=== PATIENT | female | born 1955 | race Two or more races ===

== ENCOUNTER → 2017-05-21 | Outpatient (CLI) | payer MEDICARE, OTHER, MEDICAID ==
[~2017-05-21] MED LIST: ENAL2.5T PO; NIAC500T71 PO
[2017-05-21 09:14] LABS: Basophils # (auto) 0 uL; Basophils % (auto) 0.4 % (0.0-2.0); CONDITION Y; Eosinophils # (auto) 0.4 uL; Eosinophils % (auto) 8.8 % (0.0-7.0); Hematocrit 37.5 % (36.0-46.0); Hemoglobin 12.6 g/dL (12.2-16.2); Lymphocytes % (auto) 40.4 % (10.0-50.0); Mean Corpuscular Hemoglobin 29.8 pg (28.0-32.0); Mean Corpuscular Hgb Conc. 33.7 g/dL (32.0-36.0); Mean Corpuscular Volume 88.5 fL (80.0-100.0); Mean Platelet Volume 9.1 fL (7.4-10.4); Monocytes # (auto) 0.5 uL; Monocytes % (auto) 10.4 % (0.0-12.0); Platelet Count (auto) 279 10^3/uL (140-450); Red Cell Distribution Width 13.7 % (11.6-16.0); White Blood Cell 5.1 10^3/uL (4.4-10.8)
[2017-05-21 09:27] LABS: Urine Bilirubin Negative (Negative); Urine Blood Negative /uL (Negative); Urine Color Yellow (Yellow); Urine Glucose Normal (Normal); Urine Ketone Negative (Negative); Urine Nitrite Negative (Negative); Urine RBC <1 /hpf (0 - 4); Urine Squamous Epithelial Cell FEW /hpf (<5); Urine Urobilinogen Normal (Negative); Urine pH 5.5 (5.0-8.0)
[2017-05-21 10:08] LABS: BUN/Creatinine Ratio 34.8; Bilirubin, Total 0.6 mg/dL (0.2-1.0); Potassium 3.9 mmol/L (3.5-5.1); Total Protein 7.4 g/dL (6.4-8.2)
== END | disposition home or self-care (01) ==
LOC: LAB 07:01
PROVIDERS: ATTEND Internal Medicine
DX: Z00.00 Encounter for general adult medical examination without abnormal findings (principal); I10 Essential (primary) hypertension; E78.2 Mixed hyperlipidemia; E55.9 Vitamin D deficiency, unspecified
CPT/HCPCS: 36415; 80053; 80061; 81001; 82306; 85025

== ENCOUNTER 2017-08-25 08:08 | Day surgery (SDC) | payer MEDICARE, OTHER, MEDICAID ==
[2017-08-21 11:07] LABS: Basophils # (auto) 0 uL; Basophils % (auto) 0.6 % (0.0-2.0); Eosinophils # (auto) 0.3 uL; Eosinophils % (auto) 5.6 % (0.0-7.0); Hematocrit 37.1 % (36.0-46.0); Hemoglobin 12.6 g/dL (12.2-16.2); Lymphocytes # (auto) 2.3 uL; Lymphocytes % (auto) 36.6 % (10.0-50.0); Mean Corpuscular Hemoglobin 30.5 pg (28.0-32.0); Mean Corpuscular Volume 89.7 fL (80.0-100.0); Mean Platelet Volume 7.4 fL (6.9-10.8); Monocytes # (auto) 0.6 uL; Monocytes % (auto) 10.4 % (0.0-12.0); Neutrophils # (auto) 2.9 uL; Neutrophils % (auto) 46.8 % (37.0-80.0); Nucleated Red Blood Cells % 0.1 %; Platelet Count (auto) 264 10^3/uL (140-450); Red Cell Distribution Width 14.3 % (11.8-14.3); White Blood Cell 6.2 10^3/uL (4.4-10.8)
[2017-08-21 11:23] LABS: INR 0.97 (0.9-1.15); Partial Thromboplastin Time 26.7 sec (22.64-33.71); Prothrombin Time 10.6 sec (9.37-12.3)
[~2017-08-25] VITALS: Ht 154.9 cm; Wt 58.1 kg
[~2017-08-25 08:08] MED LIST changes: +MAGN400C2 PO; -NIAC500T71 PO; +OMEP20CA74 OR; +SODIUM CHLORIDE LOCK 10 ML ONE; +diphenhdrAMINE HCL 50 MG/1 ML VL ONE
[2017-08-25] MEDS ORDERED: LIDOCAINE VISCOUS 2% 15ML UD ONE (09:27)
[2017-08-25] MEDS: fentaNYL CITRATE 100 MCG/2 ML VL ONE ×2 (09:29→09:37)
[2017-08-25] MEDS: MIDAZOLAM HCL 5 MG/ML-1ML VIAL ONE ×2 (09:29→09:37)
[2017-08-25 10:17] VITALS: BP 112/74
== END 2017-08-25 10:45 | disposition home or self-care (01) ==
LOC: GI 08:08
PROVIDERS: ATTEND Internal Medicine Gastroenterology
DX: K29.50 Unspecified chronic gastritis without bleeding (principal); K29.80 Duodenitis without bleeding; K59.00 Constipation, unspecified; Z90.49 Acquired absence of other specified parts of digestive tract; J40 Bronchitis, not specified as acute or chronic
CPT/HCPCS: 36415; 43239; 45378; 85025; 85610; 85730; 88305; J1200; J2250; J3010; J7030

== ENCOUNTER → 2018-01-19 | Outpatient (CLI) | payer MEDICARE, OTHER, MEDICAID ==
[~2018-01-19] MED LIST changes: -SODIUM CHLORIDE LOCK 10 ML ONE; -diphenhdrAMINE HCL 50 MG/1 ML VL ONE
[2018-01-19 07:47] LABS: Basophils # (auto) 0 uL; Basophils % (auto) 0.6 % (0.0-2.0); Eosinophils # (auto) 0.3 uL; Eosinophils % (auto) 6.3 % (0.0-7.0); Hematocrit 37.8 % (36.0-46.0); Hemoglobin 12.5 g/dL (12.2-16.2); Lymphocytes # (auto) 1.9 uL; Lymphocytes % (auto) 44.1 % (10.0-50.0); Mean Corpuscular Volume 90.9 fL (80.0-100.0); Monocytes # (auto) 0.4 uL; Monocytes % (auto) 10.6 % (0.0-12.0); Neutrophils # (auto) 1.6 uL; Neutrophils % (auto) 38.4 % (37.0-80.0); Nucleated Red Blood Cells % 0.1 %; Platelet Count (auto) 246 10^3/uL (140-450); Red Blood Cells 4.15 10^6/uL (4.0-5.20); Red Cell Distribution Width 13.9 % (11.8-14.3); White Blood Cell 4.2 10^3/uL (4.4-10.8)
[2018-01-19 08:05] LABS: Urine Bacteria FEW /hpf (None Seen); Urine Blood Negative /uL (Negative); Urine Specific Gravity 1.006 (1.001-1.035); Urine WBC 2 /hpf (0 - 5)
[2018-01-19 08:49] LABS: Albumin 3.8 g/dL (3.4-5.0); BUN/Creatinine Ratio 17.6; Bilirubin, Total 0.6 mg/dL (0.2-1.0); CRP High Sensitivity 0.04 mg/dL (< 0.3); Calcium 9.1 mg/dL (8.5-10.1); Potassium 4.2 mmol/L (3.5-5.1); Total Protein 7.8 g/dL (6.4-8.2)
== END | disposition home or self-care (01) ==
LOC: LAB 07:24
PROVIDERS: ATTEND Physician Assistant
DX: I10 Essential (primary) hypertension (principal); N39.0 Urinary tract infection, site not specified; D64.9 Anemia, unspecified; M06.9 Rheumatoid arthritis, unspecified; E78.2 Mixed hyperlipidemia
CPT/HCPCS: 36415; 80053; 80061; 81001; 85025; 85652; 86141

== ENCOUNTER → 2018-08-06 | Outpatient (CLI) | payer MEDICARE, OTHER, MEDICAID ==
[~2018-08-06] MED LIST changes: +CEPH500C PO; +NAPR375T27 PO; +SULF-92 PO
[2018-08-06 10:43] LABS: Cholesterol 144 mg/dL (< 200); HDL Cholesterol 25 mg/dL (40-59); LDL Cholesterol 97 mg/dL (< 100); Triglycerides 209 mg/dL (< 150)
== END | disposition home or self-care (01) ==
LOC: LAB 08:50
PROVIDERS: ATTEND Internal Medicine
DX: I10 Essential (primary) hypertension (principal); E11.9 Type 2 diabetes mellitus without complications
CPT/HCPCS: 36415; 80061; 83036

== ENCOUNTER → 2018-09-07 | Outpatient (CLI) | payer MEDICARE, OTHER, MEDICAID ==
[~2018-09-07] VITALS: Ht 154.9 cm; Wt 58.1 kg
[~2018-09-07] MED LIST changes: +ADENOSINE 49 MG in GIVE UN-DILUTED 0 ML IV STA
[2018-09-07 09:59] VITALS: BP 116/71
== END | disposition home or self-care (01) ==
LOC: XY 08:15
PROVIDERS: ATTEND Internal Medicine
DX: R07.89 Other chest pain (principal)
CPT/HCPCS: 78452; 93017; A9500; J0153

== ENCOUNTER → 2018-09-08 | Outpatient (CLI) | payer MEDICARE, OTHER, MEDICAID ==
[~2018-09-08] MED LIST changes: -ADENOSINE 49 MG in GIVE UN-DILUTED 0 ML IV STA
[2018-09-08 10:35] LABS: Bilirubin, Direct 0.2 mg/dL (0-0.2); Bilirubin, Total 0.7 mg/dL (0.2-1.0); Total Protein 8.4 g/dL (6.4-8.2)
== END | disposition home or self-care (01) ==
LOC: LAB 09:00
PROVIDERS: ATTEND Internal Medicine
DX: E78.5 Hyperlipidemia, unspecified (principal); I10 Essential (primary) hypertension; K21.9 Gastro-esophageal reflux disease without esophagitis
CPT/HCPCS: 36415; 80076

== ENCOUNTER → 2018-09-14 | Outpatient (CLI) | payer MEDICARE, OTHER, MEDICAID ==
[2018-09-14 08:11] LABS: Basophils # (auto) 0 uL; Basophils % (auto) 0.7 % (0.0-2.0); Eosinophils # (auto) 0.2 uL; Eosinophils % (auto) 5.1 % (0.0-7.0); Hematocrit 37.4 % (36.0-46.0); Hemoglobin 12.3 g/dL (12.2-16.2); Lymphocytes # (auto) 1.9 uL; Lymphocytes % (auto) 44.6 % (10.0-50.0); Mean Corpuscular Hemoglobin 29.6 pg (28.0-32.0); Mean Corpuscular Hgb Conc. 32.9 g/dL (32.0-36.0); Mean Corpuscular Volume 89.9 fL (80.0-100.0); Monocytes # (auto) 0.5 uL; Monocytes % (auto) 11.6 % (0.0-12.0); Neutrophils # (auto) 1.6 uL; Nucleated Red Blood Cells % 0.2 %; Platelet Count (auto) 236 10^3/uL (140-450); Red Blood Cells 4.16 10^6/uL (4.0-5.20); Red Cell Distribution Width 14.1 % (11.8-14.3); White Blood Cell 4.3 10^3/uL (4.4-10.8)
[2018-09-14 09:24] LABS: Cholesterol 140 mg/dL (< 200); HDL Cholesterol 23 mg/dL (40-59); LDL Cholesterol 92 mg/dL (< 100); Triglycerides 256 mg/dL (< 150)
== END | disposition home or self-care (01) ==
LOC: LAB 07:24
PROVIDERS: ATTEND Internal Medicine
DX: E78.5 Hyperlipidemia, unspecified (principal)
CPT/HCPCS: 36415; 80061; 85025

== ENCOUNTER → 2018-11-16 | Day surgery (SDC) | payer MEDICARE, OTHER, MEDICAID ==
[2018-11-12 10:55] LABS: Basophils # (auto) 0 uL; Basophils % (auto) 0.7 % (0.0-2.0); Eosinophils # (auto) 0.2 uL; Hematocrit 41.4 % (36.0-46.0); Hemoglobin 13.5 g/dL (12.2-16.2); Lymphocytes # (auto) 1.9 uL; Lymphocytes % (auto) 37.9 % (10.0-50.0); Mean Corpuscular Hemoglobin 29.5 pg (28.0-32.0); Mean Corpuscular Hgb Conc. 32.6 g/dL (32.0-36.0); Mean Corpuscular Volume 90.4 fL (80.0-100.0); Monocytes # (auto) 0.6 uL; Monocytes % (auto) 11.9 % (0.0-12.0); Neutrophils # (auto) 2.2 uL; Neutrophils % (auto) 45.5 % (37.0-80.0); Platelet Count (auto) 249 10^3/uL (140-450); Red Blood Cells 4.58 10^6/uL (4.0-5.20); Red Cell Distribution Width 14.3 % (11.8-14.3); White Blood Cell 4.9 10^3/uL (4.4-10.8)
[2018-11-12 12:00] LABS: INR 0.95 (0.9-1.15); Prothrombin Time 10.2 sec (9.27-12.13)
[~2018-11-16] VITALS: Ht 154.9 cm; Wt 56.7 kg
[~2018-11-16] MED LIST changes: -CEPH500C PO; +LIDOCAINE VISCOUS 2% 15ML UD ONE; -MAGN400C2 PO; +MIDAZOLAM HCL 5 MG/ML-1ML VIAL ONE; -NAPR375T27 PO; -OMEP20CA74 OR; +PANT40TA2 PO; +SODIUM CHLORIDE LOCK 10 ML ONE; -SULF-92 PO; +diphenhdrAMINE HCL 50 MG/1 ML VL ONE; +fentaNYL CITRATE 100 MCG/2 ML VL ONE
[2018-11-16 10:44] VITALS: BP 117/74
== END | disposition home or self-care (01) ==
LOC: GI 08:21
PROVIDERS: ATTEND Internal Medicine Gastroenterology
DX: K29.70 Gastritis, unspecified, without bleeding (principal); Z91.040 Latex allergy status; Z90.49 Acquired absence of other specified parts of digestive tract; Z82.49 Family history of ischemic heart disease and other diseases of the circulatory system
CPT/HCPCS: 36415; 43239; 85025; 85610; 85730; 88305; 88342; A6257; J1200; J2250; J3010; J7030

== ENCOUNTER → 2018-11-17 | Outpatient (CLI) | payer MEDICARE, OTHER, MEDICAID ==
[~2018-11-17] MED LIST changes: -LIDOCAINE VISCOUS 2% 15ML UD ONE; -MIDAZOLAM HCL 5 MG/ML-1ML VIAL ONE; -SODIUM CHLORIDE LOCK 10 ML ONE; -diphenhdrAMINE HCL 50 MG/1 ML VL ONE; -fentaNYL CITRATE 100 MCG/2 ML VL ONE
[2018-11-17 10:15] LABS: Cholesterol 164 mg/dL (< 200); HDL Cholesterol 31 mg/dL (40-59); LDL Cholesterol 111 mg/dL (< 100); Triglycerides 196 mg/dL (< 150)
== END | disposition home or self-care (01) ==
LOC: LAB 09:00
PROVIDERS: ATTEND Internal Medicine
DX: Z12.11 Encounter for screening for malignant neoplasm of colon (principal); E78.9 Disorder of lipoprotein metabolism, unspecified
CPT/HCPCS: 36415; 80061

== ENCOUNTER → 2018-11-23 | Outpatient (CLI) | payer MEDICARE, OTHER, MEDICAID | END | disposition home or self-care (01) | LOC: LAB 11:47 | PROVIDERS: ATTEND Internal Medicine | DX: Z12.11 Encounter for screening for malignant neoplasm of colon (principal); E78.9 Disorder of lipoprotein metabolism, unspecified | CPT/HCPCS: 82270 ==

== ENCOUNTER → 2019-02-05 | Outpatient (CLI) | payer MEDICARE, OTHER, MEDICAID ==
[~2019-02-05] MED LIST changes: +ASPI81CH43 GT; +CLOP75TA28 PO; +DICY20TA66 PO; +MECL-87 PO; +OME20T PO; -PANT40TA2 PO
[2019-02-05 09:09] LABS: Cholesterol 162 mg/dL (< 200); HDL Cholesterol 28 mg/dL (40-59); LDL Cholesterol 107 mg/dL (< 100); Triglycerides 143 mg/dL (< 150)
== END | disposition home or self-care (01) ==
LOC: LAB 07:37
PROVIDERS: ATTEND Internal Medicine
DX: I10 Essential (primary) hypertension (principal); K21.9 Gastro-esophageal reflux disease without esophagitis; M32.9 Systemic lupus erythematosus, unspecified; E78.5 Hyperlipidemia, unspecified; Z79.899 Other long term (current) drug therapy
CPT/HCPCS: 36415; 80061; 82306; 83036

== ENCOUNTER 2019-02-07 22:04 | Inpatient (IN) | payer MEDICARE, OTHER, MEDICAID ==
[~2019-02-07] VITALS: Ht 152.4 cm; Wt 55.0 kg
[~2019-02-07 22:04] MED LIST changes: -ASPI81CH43 GT; -CLOP75TA28 PO
[2019-02-07 22:38] LABS: Basophils # (auto) 0 uL; Basophils % (auto) 0.8 % (0.0-2.0); Eosinophils # (auto) 0.2 uL; Hemoglobin 12.6 g/dL (12.2-16.2); Lymphocytes # (auto) 1.6 uL; Lymphocytes % (auto) 38.5 % (10.0-50.0); Mean Corpuscular Hemoglobin 29.9 pg (28.0-32.0); Mean Corpuscular Hgb Conc. 33.2 g/dL (32.0-36.0); Mean Corpuscular Volume 90.2 fL (80.0-100.0); Monocytes # (auto) 0.5 uL; Monocytes % (auto) 11.8 % (0.0-12.0); Neutrophils # (auto) 1.9 uL; Neutrophils % (auto) 43.9 % (37.0-80.0); Nucleated Red Blood Cells % 0.1 %; Platelet Count (auto) 252 10^3/uL (140-450); Red Blood Cells 4.21 10^6/uL (4.0-5.20); Red Cell Distribution Width 13.8 % (11.8-14.3); White Blood Cell 4.2 10^3/uL (4.4-10.8)
[2019-02-07 22:53] LABS: INR 0.94 (0.9-1.15); Partial Thromboplastin Time 28.5 sec (23.78-33.04); Prothrombin Time 10.1 sec (9.27-12.13)
[2019-02-07 22:57] LABS: Alanine Aminotransferase 21 U/L (13-56); Albumin 3.8 g/dL (3.4-5.0); Anion Gap 8 (5-15); Aspartate Aminotransferase 18 U/L (15-37); BUN/Creatinine Ratio 22.1; Blood Urea Nitrogen 15 mg/dL (7-18); Calcium 8.7 mg/dL (8.5-10.1); Carbon Dioxide 23 mmol/L (21-32); Chloride 110 mmol/L (98-107); GFR African American 113 mL/min; GFR Non-African American 93 mL/min; Glucose 101 mg/dL (74-106); Magnesium 2.3 mg/dL (1.6-2.6); Potassium 3.9 mmol/L (3.5-5.1); Sodium 141 mmol/L (136-145)
[2019-02-07 23:02] LABS: Alkaline Phosphatase 138 U/L (45-117); Bilirubin, Total 0.2 mg/dL (0.2-1.0); Total Protein 8.1 g/dL (6.4-8.2)
[2019-02-08] MEDS ORDERED: ASPirin 81 mg TAB PO ONE (05:30)
[2019-02-08] MEDS ORDERED: NITROGLYCERIN 0.2MG/HR TOPICAL PATCH TD ONE (05:30)
[2019-02-08 06:31] LABS: Basophils # (auto) 0 uL; Basophils % (auto) 0.8 % (0.0-2.0); Eosinophils # (auto) 0.2 uL; Eosinophils % (auto) 5.6 % (0.0-7.0); Hemoglobin 12.3 g/dL (12.2-16.2); Lymphocytes # (auto) 1.5 uL; Lymphocytes % (auto) 36.1 % (10.0-50.0); Mean Corpuscular Hemoglobin 30.3 pg (28.0-32.0); Mean Corpuscular Hgb Conc. 33.3 g/dL (32.0-36.0); Mean Corpuscular Volume 91.1 fL (80.0-100.0); Monocytes # (auto) 0.6 uL; Monocytes % (auto) 15.7 % (0.0-12.0); Neutrophils # (auto) 1.7 uL; Neutrophils % (auto) 41.8 % (37.0-80.0); Platelet Count (auto) 242 10^3/uL (140-450); Red Blood Cells 4.06 10^6/uL (4.0-5.20); Red Cell Distribution Width 13.8 % (11.8-14.3)
[2019-02-08 06:49] LABS: INR 0.96 (0.9-1.15); Partial Thromboplastin Time 27.9 sec (23.78-33.04); Prothrombin Time 10.3 sec (9.27-12.13)
[2019-02-08 07:00] LABS: Albumin 3.9 g/dL (3.4-5.0); Calcium 8.8 mg/dL (8.5-10.1); Magnesium 2.3 mg/dL (1.6-2.6); Potassium 3.8 mmol/L (3.5-5.1)
[2019-02-08 07:05] LABS: Bilirubin, Total 0.3 mg/dL (0.2-1.0); Total Protein 7.8 g/dL (6.4-8.2)
[2019-02-08] MEDS ORDERED: NITROGLYCERIN 0.4 MG SL TAB SL PRN (10:30)
[2019-02-08] MEDS ORDERED: MORPHINE SULF INJ 2 MG/ML SYRINGE 1ML IV PRN (10:30)
[2019-02-08] MEDS ORDERED: CLOPIDOGREL BISULFATE 75 MG TAB PO ONE ×2 (10:30→10:45)
[2019-02-08] MEDS ORDERED: ONDANSETRON HCL 4 MG/2 ML VIAL IV PRN (10:30)
[2019-02-08] MEDS ORDERED: hydrALAZINE HCL 20 MG/ML VL IV PRN (10:30)
[2019-02-08] MEDS ORDERED: HYDROcodone-ACET 5/325MG TAB PO PRN (10:30)
[2019-02-08] MEDS ORDERED: MORPHINE SULFATE 4 MG/ML SYR/VIAL IV PRN (10:30)
[2019-02-08] MEDS ORDERED: ACETAMINOPHEN 500 MG TAB PO PRN (10:30)
[2019-02-08] MEDS ORDERED: ENALAPRIL MALEATE 2.5 MG TAB PO ONE (10:45)
[2019-02-08] MEDS ORDERED: ASPirin-EC 81 mg tab PO ONE (10:45)
[2019-02-08] MEDS ORDERED: PANTOPRAZOLE 40 MG/10 ML VIAL IV ONE (10:45)
[2019-02-08] MEDS: ENALAPRIL MALEATE 10 MG TAB PO SCH ×2 (11:43→22:24)
--- NOTE | 2019-02-08 17:05 | NUR ---
Telemetry admit from ER KRISTIN CARSON admitted to Telemetry unit after SBAR received Candido. Patient oriented to Patricia Huffman, primary RN, unit, room, bed, and unit policies regarding patient care and visiting hours. Patient now on continuous telemetry monitoring, tele box #48 and telemetry reading on arrival to unit is SR 80. Patient on room air, o2 saturation 98%, no signs of SOB/Distress. Safety precautions in place including, bed set to lowest position/locked, bedside rails up x2, call light within reach. Instructed patient to call for assistance. Patient verbalized understanding. Will continue to monitor q 1hr and prn.
[2019-02-08] MEDS ORDERED: ASPI81CH43 GT (18:17)
[2019-02-08] MEDS ORDERED: CLOP75TA28 PO (18:17)
--- NOTE | 2019-02-08 19:39 | NUR ---
ENDORSED CARE TO TATY QUESADA.
[2019-02-08 20:00] VITALS: BP 129/63
[2019-02-08 21:30] VITALS: BP 129/63
[2019-02-08] MEDS ORDERED: ATORVASTATIN 20 MG TAB PO SCH (22:00)
[2019-02-08] MEDS: METOPROLOL TARTRATE 25 MG TAB PO SCH (22:23)
[2019-02-09 05:00] VITALS: BP 78/46
[2019-02-09 06:03] LABS: INR 0.98 (0.9-1.15); Partial Thromboplastin Time 27.8 sec (23.78-33.04); Prothrombin Time 10.5 sec (9.27-12.13)
[2019-02-09 06:04] LABS: Basophils # (auto) 0 uL; Basophils % (auto) 0.6 % (0.0-2.0); Eosinophils # (auto) 0.3 uL; Eosinophils % (auto) 4.9 % (0.0-7.0); Hematocrit 35.9 % (36.0-46.0); Hemoglobin 11.9 g/dL (12.2-16.2); Lymphocytes # (auto) 1.4 uL; Lymphocytes % (auto) 27.6 % (10.0-50.0); Mean Corpuscular Hemoglobin 30.1 pg (28.0-32.0); Mean Corpuscular Volume 91.2 fL (80.0-100.0); Monocytes # (auto) 0.7 uL; Neutrophils # (auto) 2.8 uL; Neutrophils % (auto) 52.9 % (37.0-80.0); Nucleated Red Blood Cells % 0.2 %; Platelet Count (auto) 228 10^3/uL (140-450); Red Blood Cells 3.94 10^6/uL (4.0-5.20); Red Cell Distribution Width 13.7 % (11.8-14.3); White Blood Cell 5.2 10^3/uL (4.4-10.8)
--- NOTE | 2019-02-09 07:20 | NUR ---
OPENING NOTE ASSUMED CARE OF PATIENT. PT IS SITTING ON BED, HOB HIGH-FOWLERS. A&O X4. ON ROOM AIR, O2 SATURATION 97%. NO SIGNS OF SOB/DISTRESS. TELE #9, HR 76. SAFETY PRECAUTIONS IN PLACE INCLUDING BED SET TO LOWEST POSITION/LOCKED. BEDSIDE RAILS UP X2. CALL LIGHT WITHIN REACH. INSTRUCTED PT TO CALL FOR ASSISTANCE. DISCUSSED POC WITH PT. WILL CONTINUE TO MONITOR Q 1HR AND PRN.
[2019-02-09 08:54] LABS: BUN/Creatinine Ratio 15.7; Calcium 8.7 mg/dL (8.5-10.1)
[2019-02-09 08:57] VITALS: BP 93/58
[2019-02-09] MEDS ORDERED: CLOPIDOGREL BISULFATE 75 MG TAB PO SCH (10:00)
[2019-02-09] MEDS ORDERED: PANTOPRAZOLE 40 MG/10 ML VIAL IV SCH ×2 (10:00)
[2019-02-09] MEDS: METOPROLOL TARTRATE 25 MG TAB PO SCH (10:00)
[2019-02-09] MEDS: ENALAPRIL MALEATE 10 MG TAB PO SCH (10:00)
[2019-02-09] MEDS ORDERED: ASPirin-EC 81 mg tab PO SCH (10:00)
[2019-02-09 12:46] VITALS: BP 86/57
[2019-02-09 14:24] VITALS: BP 93/58
--- NOTE | 2019-02-09 15:03 | NUR ---
Discharge instructions given as ordered. Encourage to follow up with Dr. Telles on 02/10/19 at 2:00 PM, [id number] [place] [address]. Ext [phone]. All questions and concerns addressed. Patient verbalized understanding. No home medications held in Pharmacy and no vaccines given. IV removed with catheter intact, pressure dressing applied. Telemetry unit #9 returned to ICU.
--- NOTE | 2019-02-09 15:16 | NUR ---
Patient taken to vehicle via wheelchair with all personal belongings, accompanied by staff and family member. No distress noted at time of departure.
== END 2019-02-09 15:16 | disposition home or self-care (01) | DRG 392 ==
LOC: ER 22:07 → TELE 02-08 10:26 → TELE-WESTW 02-08 17:05
PROVIDERS: ADMIT Nurse Practitioner Acute Care; ATTEND Internal Medicine Pulmonary Disease
DX: K21.9 Gastro-esophageal reflux disease without esophagitis (principal); I10 Essential (primary) hypertension; I25.119 Atherosclerotic heart disease of native coronary artery with unspecified angina pectoris; M32.9 Systemic lupus erythematosus, unspecified; E78.5 Hyperlipidemia, unspecified; I44.0 Atrioventricular block, first degree; Z82.49 Family history of ischemic heart disease and other diseases of the circulatory system; Z90.710 Acquired absence of both cervix and uterus; Z98.51 Tubal ligation status; Z95.5 Presence of coronary angioplasty implant and graft; Z91.040 Latex allergy status; Z90.49 Acquired absence of other specified parts of digestive tract
CPT/HCPCS: 36415; 71045; 80048; 80053; 83735; 83880; 84443; 84484; 85025; 85610; 85730; 86141; 93005; 93306; 94761; 96374; C9113; G0378

== ENCOUNTER → 2019-02-11 | Outpatient (CLI) | payer MEDICARE, OTHER, MEDICAID ==
[~2019-02-11] MED LIST changes: +ASPI81CH43 GT; +CLOP75TA28 PO; -ENAL2.5T PO
== END | disposition home or self-care (01) ==
LOC: XY 07:33
PROVIDERS: ATTEND Internal Medicine
DX: I73.9 Peripheral vascular disease, unspecified (principal)
CPT/HCPCS: 93926

== ENCOUNTER → 2019-02-22 | Outpatient (CLI) | payer MEDICARE, OTHER, MEDICAID ==
[2019-02-22 09:09] LABS: Basophils # (auto) 0 uL; Basophils % (auto) 0.7 % (0.0-2.0); Eosinophils # (auto) 0.2 uL; Eosinophils % (auto) 5.7 % (0.0-7.0); Hematocrit 37.4 % (36.0-46.0); Hemoglobin 12.4 g/dL (12.2-16.2); Lymphocytes # (auto) 1.3 uL; Lymphocytes % (auto) 35.1 % (10.0-50.0); Mean Corpuscular Volume 90.9 fL (80.0-100.0); Monocytes # (auto) 0.4 uL; Monocytes % (auto) 10.1 % (0.0-12.0); Neutrophils # (auto) 1.8 uL; Neutrophils % (auto) 48.4 % (37.0-80.0); Nucleated Red Blood Cells % 0.1 %; Platelet Count (auto) 255 10^3/uL (140-450); Red Blood Cells 4.11 10^6/uL (4.0-5.20); Red Cell Distribution Width 13.9 % (11.8-14.3); White Blood Cell 3.6 10^3/uL (4.4-10.8)
[2019-02-22 09:22] LABS: Urine Bacteria NONE SEEN /hpf (None Seen); Urine Blood Negative /uL (Negative); Urine WBC <1 /hpf (0 - 5)
[2019-02-22 10:20] LABS: Albumin 3.8 g/dL (3.4-5.0); BUN/Creatinine Ratio 23.9; CRP High Sensitivity 0.04 mg/dL (< 0.3); Calcium 9.2 mg/dL (8.5-10.1); Potassium 4.8 mmol/L (3.5-5.1)
[2019-02-22 10:24] LABS: Bilirubin, Total 0.4 mg/dL (0.2-1.0); Total Protein 7.7 g/dL (6.4-8.2)
== END | disposition home or self-care (01) ==
LOC: LAB 08:02
DX: M32.10 Systemic lupus erythematosus, organ or system involvement unspecified (principal); I10 Essential (primary) hypertension; I25.10 Atherosclerotic heart disease of native coronary artery without angina pectoris; Z95.818 Presence of other cardiac implants and grafts; Z79.899 Other long term (current) drug therapy
CPT/HCPCS: 36415; 80053; 81001; 85025; 85652; 86141; 87086

== ENCOUNTER → 2019-03-25 | Outpatient (CLI) | payer MEDICARE, OTHER, MEDICAID ==
[2019-03-25 11:07] LABS: Cholesterol 158 mg/dL (< 200); HDL Cholesterol 31 mg/dL (40-59); LDL Cholesterol 108 mg/dL (< 100); Triglycerides 183 mg/dL (< 150)
== END | disposition home or self-care (01) ==
LOC: LAB 09:35
PROVIDERS: ATTEND Internal Medicine
DX: E78.5 Hyperlipidemia, unspecified (principal); I10 Essential (primary) hypertension; Z79.899 Other long term (current) drug therapy
CPT/HCPCS: 36415; 80061; 83036

== ENCOUNTER → 2019-05-19 | Outpatient (CLI) | payer MEDICARE, OTHER, MEDICAID ==
[~2019-05-19] MED LIST changes: +IBUP400T21 PO; -MECL-87 PO
[2019-05-19 09:51] LABS: Basophils # (auto) 0 uL; Basophils % (auto) 0.8 % (0.0-2.0); Eosinophils # (auto) 0.4 uL; Eosinophils % (auto) 6.6 % (0.0-7.0); Hematocrit 37.2 % (36.0-46.0); Hemoglobin 12.3 g/dL (12.2-16.2); Lymphocytes # (auto) 1.8 uL; Lymphocytes % (auto) 32.4 % (10.0-50.0); Mean Corpuscular Hemoglobin 29.3 pg (28.0-32.0); Mean Corpuscular Volume 88.6 fL (80.0-100.0); Monocytes # (auto) 0.6 uL; Monocytes % (auto) 11.6 % (0.0-12.0); Neutrophils # (auto) 2.7 uL; Neutrophils % (auto) 48.6 % (37.0-80.0); Platelet Count (auto) 312 10^3/uL (140-450); Red Cell Distribution Width 14.4 % (11.8-14.3); White Blood Cell 5.5 10^3/uL (4.4-10.8)
== END | disposition home or self-care (01) ==
LOC: LAB 09:15
PROVIDERS: ATTEND Internal Medicine
DX: E11.9 Type 2 diabetes mellitus without complications (principal); I10 Essential (primary) hypertension
CPT/HCPCS: 36415; 83036; 85025

== ENCOUNTER → 2019-05-28 | Outpatient (CLI) | payer MEDICARE, OTHER | END | disposition home or self-care (01) | LOC: LAB 14:54 | PROVIDERS: ATTEND Internal Medicine | DX: E11.9 Type 2 diabetes mellitus without complications (principal) | CPT/HCPCS: 82043 ==

== ENCOUNTER → 2019-06-08 | Outpatient (CLI) | payer MEDICARE, OTHER ==
[2019-06-08 14:51] LABS: INR < 0.93 (0.9-1.15); Partial Thromboplastin Time 27.3 sec (23.64-32.05)
== END | disposition home or self-care (01) ==
LOC: LAB 13:33
PROVIDERS: ATTEND Internal Medicine
DX: Z01.818 Encounter for other preprocedural examination (principal); M32.9 Systemic lupus erythematosus, unspecified; I25.10 Atherosclerotic heart disease of native coronary artery without angina pectoris
CPT/HCPCS: 36415; 85610; 85730

== ENCOUNTER → 2019-08-17 | Outpatient (CLI) | payer MEDICARE, OTHER ==
[2019-08-17 11:36] LABS: Cholesterol 140 mg/dL (< 200); HDL Cholesterol 38 mg/dL (40-59); LDL Cholesterol 93 mg/dL (< 100); Triglycerides 156 mg/dL (< 150)
== END | disposition home or self-care (01) ==
LOC: LAB 10:15
PROVIDERS: ATTEND Internal Medicine
DX: E11.9 Type 2 diabetes mellitus without complications (principal); E55.9 Vitamin D deficiency, unspecified
CPT/HCPCS: 36415; 80061; 82306; 83036

== ENCOUNTER → 2019-10-19 | Outpatient (CLI) | payer MEDICARE, OTHER, MEDICAID ==
[2019-10-19 08:57] LABS: Bilirubin, Direct 0.2 mg/dL (0-0.2)
[2019-10-19 08:59] LABS: Bilirubin, Total 0.7 mg/dL (0.2-1.0); Total Protein 7.9 g/dL (6.4-8.2)
== END | disposition home or self-care (01) ==
LOC: LAB 07:13
PROVIDERS: ATTEND Internal Medicine
DX: E78.5 Hyperlipidemia, unspecified (principal); E11.9 Type 2 diabetes mellitus without complications; E55.9 Vitamin D deficiency, unspecified
CPT/HCPCS: 36415; 80061; 80076; 82306

== ENCOUNTER → 2019-12-29 | Outpatient (CLI) | payer MEDICARE, OTHER ==
[2019-12-29 08:32] LABS: Albumin 4.2 g/dL (3.4-5.0); Bilirubin, Direct 0.1 mg/dL (0-0.2)
[2019-12-29 08:35] LABS: Bilirubin, Total 0.4 mg/dL (0.2-1.0)
== END | disposition home or self-care (01) ==
LOC: LAB 07:52
PROVIDERS: ATTEND Internal Medicine
DX: E11.9 Type 2 diabetes mellitus without complications (principal); E55.9 Vitamin D deficiency, unspecified; E78.5 Hyperlipidemia, unspecified
CPT/HCPCS: 36415; 80076; 82306; 83036

== ENCOUNTER → 2020-04-25 | Outpatient (CLI) | payer MEDICARE, OTHER, MEDICAID ==
[2020-04-25 08:45] LABS: Basophils # (auto) 0 10 ^3/uL (0-0.2); Basophils % (auto) 0.5 % (0.0-2.0); Eosinophils # (auto) 0.1 10 ^3/uL (0-0.8); Eosinophils % (auto) 1.4 % (0.0-7.0); Hematocrit 36.9 % (36.0-46.0); Hemoglobin 12.2 g/dL (12.2-16.2); Lymphocytes # (auto) 1.4 10 ^3/uL (0.4-5.4); Lymphocytes % (auto) 23.5 % (10.0-50.0); Mean Corpuscular Hemoglobin 31.4 pg (28.0-32.0); Mean Corpuscular Hgb Conc. 33.1 g/dL (32.0-36.0); Monocytes # (auto) 0.5 10 ^3/uL (0-1.3); Monocytes % (auto) 8.3 % (0.0-12.0); Neutrophils # (auto) 3.8 10 ^3/uL (1.6-8.6); Neutrophils % (auto) 66.3 % (37.0-80.0); Platelet Count (auto) 305 10^3/uL (140-450); Red Blood Cells 3.88 10^6/uL (4.0-5.20); Red Cell Distribution Width 14.7 % (11.8-14.3); White Blood Cell 5.8 10^3/uL (4.4-10.8)
[2020-04-25 08:48] LABS: Urine Bacteria FEW /hpf (None Seen); Urine Blood Negative /uL (Negative); Urine WBC 1 /hpf (0 - 5)
[2020-04-25 09:30] LABS: Calcium 9.2 mg/dL (8.5-10.1); Potassium 4.2 mmol/L (3.5-5.1)
[2020-04-25 09:34] LABS: BUN/Creatinine Ratio 21.6; Bilirubin, Total 0.5 mg/dL (0.2-1.0)
[2020-04-25 09:41] LABS: CRP High Sensitivity 0.02 mg/dL (< 0.3)
== END | disposition home or self-care (01) ==
LOC: LAB 08:21
PROVIDERS: ATTEND Internal Medicine
DX: E11.9 Type 2 diabetes mellitus without complications (principal); R10.9 Unspecified abdominal pain; M06.9 Rheumatoid arthritis, unspecified; I10 Essential (primary) hypertension
CPT/HCPCS: 36415; 80053; 81001; 82150; 83690; 85025; 85652; 86141

== ENCOUNTER → 2020-05-18 | Outpatient (CLI) | payer MEDICARE, OTHER, MEDICAID ==
[2020-05-18 15:15] LABS: Urine Blood Negative /uL (Negative); Urine Specific Gravity 1.005 (1.001-1.035)
[2020-05-18 15:48] LABS: BUN/Creatinine Ratio 22.7; Calcium 8.9 mg/dL (8.5-10.1); Potassium 3.9 mmol/L (3.5-5.1)
[2020-05-20 19:24] LABS: Micro Albumin < 5.00 mg/L (0-30.0)
== END | disposition home or self-care (01) ==
LOC: LAB 14:40
PROVIDERS: ATTEND Internal Medicine
DX: Z12.11 Encounter for screening for malignant neoplasm of colon (principal); E11.9 Type 2 diabetes mellitus without complications; N13.30 Unspecified hydronephrosis
CPT/HCPCS: 36415; 80048; 81003; 82043

== ENCOUNTER → 2020-05-18 | Outpatient (CLI) | payer MEDICARE, OTHER, MEDICAID | END | disposition home or self-care (01) | LOC: XYW 09:27 | PROVIDERS: ATTEND Internal Medicine | DX: I08.2 Rheumatic disorders of both aortic and tricuspid valves (principal); R07.9 Chest pain, unspecified; R53.83 Other fatigue | CPT/HCPCS: 93306 ==

== ENCOUNTER → 2020-05-24 | Outpatient (CLI) | payer MEDICARE, OTHER, MEDICAID ==
[~2020-05-24] MED LIST changes: +DICY20TA PO; -DICY20TA66 PO
== END | disposition home or self-care (01) ==
LOC: LAB 11:28
PROVIDERS: ATTEND Internal Medicine
DX: Z12.11 Encounter for screening for malignant neoplasm of colon (principal); E11.9 Type 2 diabetes mellitus without complications
CPT/HCPCS: 82270

== ENCOUNTER → 2020-06-08 | Outpatient (CLI) | payer MEDICARE, OTHER | END | disposition home or self-care (01) | LOC: LAB 14:22 | PROVIDERS: ATTEND Internal Medicine | DX: N39.0 Urinary tract infection, site not specified (principal) | CPT/HCPCS: 87086; 87088; 87186 ==

== ENCOUNTER → 2020-06-21 | Outpatient (CLI) | payer MEDICARE, OTHER, MEDICAID ==
[~2020-06-21] VITALS: Ht 154.9 cm; Wt 58.5 kg
[~2020-06-21] MED LIST changes: +ADENOSINE 49 MG in GIVE UN-DILUTED 0 ML IV STA
== END | disposition home or self-care (01) ==
LOC: XY 08:16
PROVIDERS: ATTEND Internal Medicine
DX: R07.9 Chest pain, unspecified (principal); I25.10 Atherosclerotic heart disease of native coronary artery without angina pectoris
CPT/HCPCS: 78452; 93017; A9500; J0153

== ENCOUNTER → 2020-10-06 | Outpatient (CLI) | payer MEDICARE, OTHER, MEDICAID ==
[~2020-10-06] MED LIST changes: -ADENOSINE 49 MG in GIVE UN-DILUTED 0 ML IV STA
[2020-10-06 09:03] LABS: Cholesterol 170 mg/dL (< 200); HDL Cholesterol 40 mg/dL (40-59); LDL Cholesterol 114 mg/dL (< 100); Triglycerides 181 mg/dL (< 150)
== END | disposition home or self-care (01) ==
LOC: LAB 08:23
PROVIDERS: ATTEND Internal Medicine
DX: R73.03 Prediabetes (principal); E55.9 Vitamin D deficiency, unspecified; I10 Essential (primary) hypertension
CPT/HCPCS: 36415; 80061; 83036

== ENCOUNTER → 2020-10-16 | Outpatient (CLI) | payer MEDICARE, OTHER, MEDICAID | END | disposition home or self-care (01) | LOC: LAB 15:39 | PROVIDERS: ATTEND Urology | DX: N39.0 Urinary tract infection, site not specified (principal) | CPT/HCPCS: 87086 ==

== ENCOUNTER → 2020-12-18 | Outpatient (CLI) | payer MEDICARE, OTHER, MEDICAID ==
[~2020-12-18] MED LIST changes: -IBUP400T21 PO; +IBUP400T22 PO
== END | disposition home or self-care (01) ==
LOC: LAB 16:59
PROVIDERS: ATTEND Urology
DX: N39.0 Urinary tract infection, site not specified (principal)
CPT/HCPCS: 87086

== ENCOUNTER → 2020-12-21 | Outpatient (CLI) | payer MEDICARE, OTHER, MEDICAID | END | disposition home or self-care (01) | LOC: LAB 08:14 | PROVIDERS: ATTEND Urology | DX: N39.0 Urinary tract infection, site not specified (principal) | CPT/HCPCS: 87086 ==

== ENCOUNTER → 2021-01-25 | Outpatient (CLI) | payer MEDICARE, OTHER, MEDICAID | END | disposition home or self-care (01) | LOC: XYW 14:07 | PROVIDERS: ATTEND Internal Medicine | DX: I08.3 Combined rheumatic disorders of mitral, aortic and tricuspid valves (principal); R07.9 Chest pain, unspecified | CPT/HCPCS: 93306 ==

== ENCOUNTER → 2021-04-06 | Outpatient (CLI) | payer MEDICARE, OTHER, MEDICAID ==
[2021-04-06 09:53] LABS: Basophils # (auto) 0 10 ^3/uL (0-0.2); Basophils % (auto) 0.4 % (0.0-2.0); Eosinophils # (auto) 0 10 ^3/uL (0-0.8); Eosinophils % (auto) 0.3 % (0.0-7.0); Hematocrit 37.3 % (36.0-46.0); Hemoglobin 12.5 g/dL (12.2-16.2); Lymphocytes % (auto) 23.6 % (10.0-50.0); Mean Corpuscular Hemoglobin 30.8 pg (28.0-32.0); Mean Corpuscular Hgb Conc. 33.5 g/dL (32.0-36.0); Mean Corpuscular Volume 92.1 fL (80.0-100.0); Monocytes # (auto) 0.3 10 ^3/uL (0-1.3); Monocytes % (auto) 6.7 % (0.0-12.0); Neutrophils # (auto) 2.9 10 ^3/uL (1.6-8.6); Nucleated Red Blood Cells % 0.1 %; Platelet Count (auto) 278 10^3/uL (140-450); Red Blood Cells 4.05 10^6/uL (4.0-5.20); White Blood Cell 4.2 10^3/uL (4.4-10.8)
[2021-04-06 10:12] LABS: Potassium 4.4 mmol/L (3.5-5.1)
[2021-04-06 10:21] LABS: Albumin 3.9 g/dL (3.4-5.0); BUN/Creatinine Ratio 24.6; Bilirubin, Total 0.7 mg/dL (0.2-1.0); Calcium 9.4 mg/dL (8.5-10.1); Total Protein 7.8 g/dL (6.4-8.2)
== END | disposition home or self-care (01) ==
LOC: LAB 09:23
PROVIDERS: ATTEND Internal Medicine
DX: Z12.11 Encounter for screening for malignant neoplasm of colon (principal); E78.5 Hyperlipidemia, unspecified; E55.9 Vitamin D deficiency, unspecified; R59.1 Generalized enlarged lymph nodes
CPT/HCPCS: 36415; 80053; 80061; 82306; 83615; 85025

== ENCOUNTER → 2021-04-25 | Outpatient (CLI) | payer MEDICARE, OTHER, MEDICAID ==
[2021-04-25 09:17] LABS: Urine Bacteria NONE SEEN /hpf (None Seen); Urine Blood Negative /uL (Negative); Urine Specific Gravity 1.015 (1.001-1.035); Urine WBC 2 /hpf (0 - 5)
[2021-04-25 09:49] LABS: Calcium 8.8 mg/dL (8.5-10.1); Potassium 4.2 mmol/L (3.5-5.1)
[2021-04-25 09:51] LABS: BUN/Creatinine Ratio 22.9
== END | disposition home or self-care (01) ==
LOC: LAB 08:22
PROVIDERS: ATTEND Internal Medicine
DX: R10.9 Unspecified abdominal pain (principal)
CPT/HCPCS: 36415; 80048; 81001; 82150; 83690

== ENCOUNTER → 2021-05-10 | Outpatient (CLI) | payer MEDICARE, OTHER, MEDICAID | END | disposition home or self-care (01) | LOC: LAB 10:40 | PROVIDERS: ATTEND Internal Medicine | DX: R93.3 Abnormal findings on diagnostic imaging of other parts of digestive tract (principal) | CPT/HCPCS: 36415; 82565; 84520 ==

== ENCOUNTER → 2021-10-24 | Outpatient (CLI) | payer MEDICARE, OTHER, MEDICAID | END | disposition home or self-care (01) | LOC: XY 10:40 | PROVIDERS: ATTEND Internal Medicine | DX: I65.22 Occlusion and stenosis of left carotid artery (principal) | CPT/HCPCS: 93886 ==

== ENCOUNTER → 2021-10-29 | Outpatient (CLI) | payer MEDICARE, OTHER, MEDICAID ==
[2021-10-29 09:55] LABS: Potassium 4.7 mmol/L (3.5-5.1)
[2021-10-29 10:04] LABS: Albumin 3.8 g/dL (3.4-5.0); BUN/Creatinine Ratio 25.7; Bilirubin, Total 0.5 mg/dL (0.2-1.0); Calcium 9.4 mg/dL (8.5-10.1); Total Protein 7.4 g/dL (6.4-8.2)
== END | disposition home or self-care (01) ==
LOC: LAB 08:17
PROVIDERS: ATTEND Internal Medicine
DX: E11.9 Type 2 diabetes mellitus without complications (principal)
CPT/HCPCS: 36415; 80053; 80061

== ENCOUNTER → 2021-12-18 | Outpatient (CLI) | payer MEDICARE, OTHER, MEDICAID ==
[2021-12-18 08:35] LABS: Urine Bacteria NONE SEEN /hpf (None Seen); Urine Blood Negative /uL (Negative); Urine Specific Gravity 1.014 (1.001-1.035); Urine WBC <1 /hpf (0 - 5)
[2021-12-18 09:14] LABS: BUN/Creatinine Ratio 21.6; Bilirubin, Total 0.5 mg/dL (0.2-1.0); Calcium 9.2 mg/dL (8.5-10.1); Total Protein 7.9 g/dL (6.4-8.2)
== END | disposition home or self-care (01) ==
LOC: LAB 07:47
PROVIDERS: ATTEND Internal Medicine
DX: R22.40 Localized swelling, mass and lump, unspecified lower limb (principal); R10.9 Unspecified abdominal pain
CPT/HCPCS: 36415; 80053; 81001

== ENCOUNTER → 2022-01-23 | Outpatient (CLI) | payer MEDICARE, OTHER, MEDICAID ==
[2022-01-23 08:46] LABS: Urine Bacteria NONE SEEN /hpf (None Seen); Urine Blood Negative /uL (Negative); Urine Specific Gravity 1.002 (1.001-1.035); Urine WBC <1 /hpf (0 - 5)
[2022-01-23 09:06] LABS: Creatinine, Urine 19 mg/dL (30.0-125.0); Protein, Urine < 5.0 mg/dL (0.0-11.9)
[2022-01-23 09:16] LABS: BUN/Creatinine Ratio 24.6; Calcium 9.4 mg/dL (8.5-10.1); Potassium 3.9 mmol/L (3.5-5.1)
== END | disposition home or self-care (01) ==
LOC: LAB 07:53
PROVIDERS: ATTEND Internal Medicine Nephrology
DX: M32.9 Systemic lupus erythematosus, unspecified (principal)
CPT/HCPCS: 36415; 80048; 81001; 82570; 84156

== ENCOUNTER → 2022-03-04 | Outpatient (CLI) | payer OTHER, MEDICAID, MEDICARE ==
[2022-03-04 15:29] LABS: Basophils # (auto) 0 10 ^3/uL (0-0.2); Eosinophils # (auto) 0.2 10 ^3/uL (0-0.8); Eosinophils % (auto) 4.3 % (0.0-7.0); Hematocrit 30.9 % (36.0-46.0); Hemoglobin 10.4 g/dL (12.2-16.2); Lymphocytes # (auto) 1.5 10 ^3/uL (0.4-5.4); Lymphocytes % (auto) 35.1 % (10.0-50.0); Mean Corpuscular Hemoglobin 30.8 pg (28.0-32.0); Mean Corpuscular Hgb Conc. 33.6 g/dL (32.0-36.0); Mean Corpuscular Volume 91.7 fL (80.0-100.0); Monocytes # (auto) 0.5 10 ^3/uL (0-1.3); Monocytes % (auto) 12.4 % (0.0-12.0); Neutrophils % (auto) 47.2 % (37.0-80.0); Nucleated Red Blood Cells % 0.2 %; Red Blood Cells 3.37 10^6/uL (4.0-5.20); Red Cell Distribution Width 14.6 % (11.8-14.3); White Blood Cell 4.3 10^3/uL (4.4-10.8)
[2022-03-04 15:32] LABS: Urine Bacteria NONE SEEN /hpf (None Seen); Urine Blood Negative /uL (Negative); Urine Mucus FEW (None Seen); Urine Specific Gravity 1.014 (1.001-1.035); Urine WBC 3 /hpf (0 - 5)
[2022-03-04 15:48] LABS: Albumin 3.5 g/dL (3.4-5.0)
[2022-03-04 15:52] LABS: Bilirubin, Direct 0.1 mg/dL (0-0.2); Bilirubin, Total 0.4 mg/dL (0.2-1.0); Total Protein 6.9 g/dL (6.4-8.2)
[2022-03-05 14:45] LABS: BUN/Creatinine Ratio 25.8; Calcium 8.8 mg/dL (8.5-10.1); Potassium 3.8 mmol/L (3.5-5.1)
== END | disposition home or self-care (01) ==
LOC: LAB 15:15
PROVIDERS: ATTEND Internal Medicine
DX: M06.9 Rheumatoid arthritis, unspecified (principal); M25.579 Pain in unspecified ankle and joints of unspecified foot; D64.9 Anemia, unspecified; E11.9 Type 2 diabetes mellitus without complications
CPT/HCPCS: 36415; 80048; 80076; 81001; 82550; 83036; 84443; 85025; 85652

== ENCOUNTER → 2022-04-08 | Outpatient (CLI) | payer OTHER, MEDICAID, MEDICARE | END | disposition home or self-care (01) | LOC: LAB 14:24 | PROVIDERS: ATTEND Internal Medicine | DX: M06.9 Rheumatoid arthritis, unspecified (principal) | CPT/HCPCS: 36415; 85652 ==

== ENCOUNTER → 2022-05-28 | Outpatient (CLI) | payer MEDICARE, OTHER, MEDICAID ==
[2022-05-28 11:19] LABS: Basophils # (auto) 0 10 ^3/uL (0-0.2); Basophils % (auto) 0.8 % (0.0-2.0); Eosinophils # (auto) 0.1 10 ^3/uL (0-0.8); Eosinophils % (auto) 2.2 % (0.0-7.0); Hematocrit 34.3 % (36.0-46.0); Hemoglobin 11.4 g/dL (12.2-16.2); Lymphocytes # (auto) 1.7 10 ^3/uL (0.4-5.4); Lymphocytes % (auto) 39.5 % (10.0-50.0); Mean Corpuscular Hemoglobin 31.3 pg (28.0-32.0); Mean Corpuscular Hgb Conc. 33.2 g/dL (32.0-36.0); Mean Corpuscular Volume 94.1 fL (80.0-100.0); Monocytes # (auto) 0.7 10 ^3/uL (0-1.3); Monocytes % (auto) 16.3 % (0.0-12.0); Neutrophils # (auto) 1.8 10 ^3/uL (1.6-8.6); Neutrophils % (auto) 41.2 % (37.0-80.0); Nucleated Red Blood Cells % 0.1 %; Red Blood Cells 3.65 10^6/uL (4.0-5.20); Red Cell Distribution Width 15.8 % (11.8-14.3); White Blood Cell 4.3 10^3/uL (4.4-10.8)
== END | disposition home or self-care (01) ==
LOC: LAB 10:35
PROVIDERS: ATTEND Internal Medicine
DX: E55.9 Vitamin D deficiency, unspecified (principal); E11.9 Type 2 diabetes mellitus without complications; M06.9 Rheumatoid arthritis, unspecified; R10.9 Unspecified abdominal pain; Z12.11 Encounter for screening for malignant neoplasm of colon
CPT/HCPCS: 36415; 82043; 82306; 83036; 85025

== ENCOUNTER → 2022-06-14 | Outpatient (CLI) | payer MEDICARE, OTHER, MEDICAID ==
[2022-06-14 10:43] LABS: Calcium 9.1 mg/dL (8.5-10.1); Potassium 3.4 mmol/L (3.5-5.1)
[2022-06-14 10:45] LABS: BUN/Creatinine Ratio 21.1
== END | disposition home or self-care (01) ==
LOC: LAB 09:56
PROVIDERS: ATTEND Internal Medicine
DX: R10.9 Unspecified abdominal pain (principal); Z12.11 Encounter for screening for malignant neoplasm of colon
CPT/HCPCS: 36415; 80048

== ENCOUNTER → 2022-06-25 | Outpatient (CLI) | payer MEDICARE, OTHER, MEDICAID | END | disposition home or self-care (01) | LOC: LAB 06:40 | PROVIDERS: ATTEND Internal Medicine | DX: Z12.11 Encounter for screening for malignant neoplasm of colon (principal); R10.9 Unspecified abdominal pain | CPT/HCPCS: 82270 ==

== ENCOUNTER → 2022-07-02 | Outpatient (CLI) | payer MEDICARE, OTHER, MEDICAID | END | disposition home or self-care (01) | LOC: LAB 10:08 | PROVIDERS: ATTEND Internal Medicine | DX: R10.13 Epigastric pain (principal) | CPT/HCPCS: 36415; 82565; 84520 ==

== ENCOUNTER → 2022-07-29 | Outpatient (CLI) | payer MEDICARE, OTHER, MEDICAID ==
[2022-07-29 13:29] LABS: Basophils # (auto) 0 10 ^3/uL (0-0.2); Basophils % (auto) 0.2 % (0.0-2.0); Eosinophils # (auto) 0 10 ^3/uL (0-0.8); Eosinophils % (auto) 0.2 % (0.0-7.0); Hematocrit 37.6 % (36.0-46.0); Hemoglobin 12.5 g/dL (12.2-16.2); Lymphocytes # (auto) 1.5 10 ^3/uL (0.4-5.4); Lymphocytes % (auto) 16.9 % (10.0-50.0); Mean Corpuscular Hemoglobin 31.3 pg (28.0-32.0); Mean Corpuscular Hgb Conc. 33.2 g/dL (32.0-36.0); Mean Corpuscular Volume 94.5 fL (80.0-100.0); Monocytes # (auto) 0.4 10 ^3/uL (0-1.3); Monocytes % (auto) 4.2 % (0.0-12.0); Neutrophils # (auto) 7.1 10 ^3/uL (1.6-8.6); Neutrophils % (auto) 78.5 % (37.0-80.0); Red Blood Cells 3.98 10^6/uL (4.0-5.20); Red Cell Distribution Width 15.1 % (11.8-14.3); White Blood Cell 9.1 10^3/uL (4.4-10.8)
[2022-07-29 13:54] LABS: Potassium 4.5 mmol/L (3.5-5.1)
[2022-07-29 13:58] LABS: Albumin 3.7 g/dL (3.4-5.0); BUN/Creatinine Ratio 23.2; Bilirubin, Total 0.7 mg/dL (0.2-1.0); Calcium 8.9 mg/dL (8.5-10.1); Total Protein 7.2 g/dL (6.4-8.2)
== END | disposition home or self-care (01) ==
LOC: LAB 12:47
PROVIDERS: ATTEND Internal Medicine
DX: D64.9 Anemia, unspecified (principal); M48.02 Spinal stenosis, cervical region; I10 Essential (primary) hypertension
CPT/HCPCS: 36415; 80053; 82550; 85025; 85652

== ENCOUNTER → 2022-07-30 | Outpatient (CLI) | payer MEDICARE, OTHER, MEDICAID | END | disposition home or self-care (01) | LOC: RT 08:52 | PROVIDERS: ATTEND Internal Medicine Pulmonary Disease | DX: R06.02 Shortness of breath (principal); R06.00 Dyspnea, unspecified | CPT/HCPCS: 94060 ==

== ENCOUNTER 2022-09-20 09:02 | Day surgery (SDC) | payer MEDICARE, MEDICAID, OTHER ==
[2022-09-17 11:39] LABS: Basophils # (auto) 0 10 ^3/uL (0-0.2); Basophils % (auto) 0.8 % (0.0-2.0); Eosinophils # (auto) 0.1 10 ^3/uL (0-0.8); Eosinophils % (auto) 2.3 % (0.0-7.0); Hematocrit 37.6 % (36.0-46.0); Hemoglobin 12.5 g/dL (12.2-16.2); Lymphocytes # (auto) 1.8 10 ^3/uL (0.4-5.4); Lymphocytes % (auto) 32.6 % (10.0-50.0); Mean Corpuscular Hemoglobin 31.3 pg (28.0-32.0); Mean Corpuscular Hgb Conc. 33.2 g/dL (32.0-36.0); Mean Corpuscular Volume 94.4 fL (80.0-100.0); Monocytes # (auto) 0.6 10 ^3/uL (0-1.3); Monocytes % (auto) 10.7 % (0.0-12.0); Neutrophils # (auto) 2.9 10 ^3/uL (1.6-8.6); Neutrophils % (auto) 53.6 % (37.0-80.0); Nucleated Red Blood Cells % 0.1 %; Red Blood Cells 3.98 10^6/uL (4.0-5.20); Red Cell Distribution Width 14.4 % (11.8-14.3); White Blood Cell 5.5 10^3/uL (4.4-10.8)
[2022-09-17 11:44] LABS: INR 0.94 (0.9-1.15); Partial Thromboplastin Time 24.2 sec (24.6-33.4)
[2022-09-17 11:46] LABS: Albumin 3.7 g/dL (3.4-5.0); Calcium 8.5 mg/dL (8.5-10.1); Potassium 3.3 mmol/L (3.5-5.1)
[2022-09-17 11:50] LABS: Bilirubin, Total 0.5 mg/dL (0.2-1.0); Total Protein 7.1 g/dL (6.4-8.2)
[~2022-09-20] VITALS: Ht 154.9 cm; Wt 59.0 kg
[~2022-09-20 09:02] MED LIST changes: -ASPI81CH43 GT; +GABA300C10 PO; -IBUP400T22 PO; +METH2.5T PO; +METO25TA93 PO; +PRED10TA PO
[2022-09-20] MEDS ORDERED: SODIUM CHLORIDE LOCK 10 ML ONE (09:14)
[2022-09-20] MEDS ORDERED: diphenhdrAMINE HCL 50 MG/1 ML VL ONE (09:15)
[2022-09-20] MEDS ORDERED: LIDOCAINE VISCOUS 2% 15ML UD ONE (10:13)
[2022-09-20] MEDS: MIDAZOLAM HCL 5 MG/ML-1ML VIAL ONE ×3 (11:00→11:08)
[2022-09-20] MEDS: fentaNYL CITRATE 100 MCG/2 ML VL ONE ×3 (11:00→11:08)
[2022-09-20 11:40] VITALS: BP 122/61
== END 2022-09-20 12:00 | disposition home or self-care (01) ==
LOC: GI 09:02
PROVIDERS: ATTEND Internal Medicine Gastroenterology
DX: R13.10 Dysphagia, unspecified (principal); K29.50 Unspecified chronic gastritis without bleeding; K44.9 Diaphragmatic hernia without obstruction or gangrene; K22.4 Dyskinesia of esophagus; Z90.710 Acquired absence of both cervix and uterus; Z90.49 Acquired absence of other specified parts of digestive tract; Z95.5 Presence of coronary angioplasty implant and graft; Z91.040 Latex allergy status; Z20.822 Contact with and (suspected) exposure to COVID-19
CPT/HCPCS: 36415; 43239; 43450; 80053; 85025; 85610; 85730; 88305; 88342; J1200; J2250; J3010; J7030; U0003

== ENCOUNTER → 2022-11-21 | Outpatient (CLI) | payer MEDICARE, OTHER, MEDICAID | END | disposition home or self-care (01) | LOC: XYW 14:54 | PROVIDERS: ATTEND Internal Medicine | DX: I10 Essential (primary) hypertension (principal) | CPT/HCPCS: 93306 ==

== ENCOUNTER → 2022-12-05 | Outpatient (CLI) | payer MEDICARE, OTHER, MEDICAID ==
[~2022-12-05] VITALS: Ht 154.9 cm; Wt 59.0 kg
[~2022-12-05] MED LIST changes: +ADENOSINE 50 MG in GIVE UN-DILUTED 0 ML IV ONE
== END | disposition home or self-care (01) ==
LOC: XYW 08:42
PROVIDERS: ATTEND Internal Medicine
DX: I10 Essential (primary) hypertension (principal); M32.9 Systemic lupus erythematosus, unspecified; E11.9 Type 2 diabetes mellitus without complications; M19.90 Unspecified osteoarthritis, unspecified site; Z79.899 Other long term (current) drug therapy
CPT/HCPCS: 78452; 93017; A9500; J0153

== ENCOUNTER 2022-12-10 13:32 | Emergency (ER) | payer MEDICARE, OTHER, MEDICAID ==
[~2022-12-10] VITALS: Ht 152.4 cm; Wt 75.0 kg
[~2022-12-10 13:32] MED LIST changes: -ADENOSINE 50 MG in GIVE UN-DILUTED 0 ML IV ONE
[2022-12-10 14:09] LABS: Basophils # (auto) 0 10 ^3/uL (0-0.2); Basophils % (auto) 0.6 % (0.0-2.0); Eosinophils # (auto) 0.1 10 ^3/uL (0-0.8); Eosinophils % (auto) 1.9 % (0.0-7.0); Hematocrit 36.9 % (36.0-46.0); Hemoglobin 12.6 g/dL (12.2-16.2); Lymphocytes # (auto) 2.1 10 ^3/uL (0.4-5.4); Lymphocytes % (auto) 35.5 % (10.0-50.0); Mean Corpuscular Hemoglobin 32.6 pg (28.0-32.0); Mean Corpuscular Hgb Conc. 34.2 g/dL (32.0-36.0); Mean Corpuscular Volume 95.2 fL (80.0-100.0); Monocytes # (auto) 0.6 10 ^3/uL (0-1.3); Monocytes % (auto) 10.3 % (0.0-12.0); Neutrophils # (auto) 3.1 10 ^3/uL (1.6-8.6); Neutrophils % (auto) 51.7 % (37.0-80.0); Nucleated Red Blood Cells % 0.1 %; Red Blood Cells 3.87 10^6/uL (4.0-5.20); Red Cell Distribution Width 14.1 % (11.8-14.3); White Blood Cell 5.9 10^3/uL (4.4-10.8)
[2022-12-10 14:27] LABS: Calcium 8.7 mg/dL (8.5-10.1); Potassium 4.1 mmol/L (3.5-5.1)
[2022-12-10 14:31] LABS: BUN/Creatinine Ratio 16.9; Bilirubin, Total 0.5 mg/dL (0.2-1.0); Total Protein 6.7 g/dL (6.4-8.2)
[2022-12-10 18:02] VITALS: BP 121/89
== END 2022-12-10 18:03 | disposition home or self-care (01) ==
LOC: ER 13:32
DX: R07.9 Chest pain, unspecified (principal); I10 Essential (primary) hypertension; I25.10 Atherosclerotic heart disease of native coronary artery without angina pectoris; K21.9 Gastro-esophageal reflux disease without esophagitis; E78.5 Hyperlipidemia, unspecified; Z90.49 Acquired absence of other specified parts of digestive tract; Z90.710 Acquired absence of both cervix and uterus; Z79.01 Long term (current) use of anticoagulants; Z79.899 Other long term (current) drug therapy; Z91.040 Latex allergy status
CPT/HCPCS: 36415; 71045; 80053; 84484; 85025; 93005

== ENCOUNTER → 2022-12-26 | Outpatient (CLI) | payer MEDICARE, OTHER, MEDICAID ==
[2022-12-26 09:31] LABS: Basophils # (auto) 0 10 ^3/uL (0-0.2); Basophils % (auto) 0.6 % (0.0-2.0); Eosinophils # (auto) 0.1 10 ^3/uL (0-0.8); Hematocrit 37.9 % (36.0-46.0); Hemoglobin 12.8 g/dL (12.2-16.2); Lymphocytes # (auto) 1.6 10 ^3/uL (0.4-5.4); Mean Corpuscular Hemoglobin 32.2 pg (28.0-32.0); Mean Corpuscular Hgb Conc. 33.6 g/dL (32.0-36.0); Mean Corpuscular Volume 95.7 fL (80.0-100.0); Monocytes # (auto) 0.4 10 ^3/uL (0-1.3); Monocytes % (auto) 8.5 % (0.0-12.0); Neutrophils # (auto) 2.2 10 ^3/uL (1.6-8.6); Neutrophils % (auto) 51.9 % (37.0-80.0); Nucleated Red Blood Cells % 0.1 %; Red Blood Cells 3.96 10^6/uL (4.0-5.20); Red Cell Distribution Width 14.9 % (11.8-14.3); White Blood Cell 4.3 10^3/uL (4.4-10.8)
[2022-12-26 10:02] LABS: Urine Bacteria NONE SEEN /hpf (None Seen); Urine Blood Negative /uL (Negative); Urine WBC 1 /hpf (0 - 5)
[2022-12-26 10:09] LABS: Cholesterol 217 mg/dL (< 200); HDL Cholesterol 36 mg/dL (40-59); LDL Cholesterol 118 mg/dL (< 100); Triglycerides 396 mg/dL (< 150)
== END | disposition home or self-care (01) ==
LOC: LAB 09:03
PROVIDERS: ATTEND Internal Medicine
DX: Z12.11 Encounter for screening for malignant neoplasm of colon (principal); Z00.00 Encounter for general adult medical examination without abnormal findings; M06.9 Rheumatoid arthritis, unspecified; K29.20 Alcoholic gastritis without bleeding
CPT/HCPCS: 36415; 80061; 81001; 82043; 83036; 85025; 85652

== ENCOUNTER → 2023-03-03 | Outpatient (CLI) | payer MEDICARE, OTHER, MEDICAID ==
[2023-03-03 10:55] LABS: Cholesterol 180 mg/dL (< 200); HDL Cholesterol 30 mg/dL (40-59); LDL Cholesterol 117 mg/dL (< 100); Triglycerides 253 mg/dL (< 150)
== END | disposition home or self-care (01) ==
LOC: LAB 09:48
PROVIDERS: ATTEND Internal Medicine
DX: E78.5 Hyperlipidemia, unspecified (principal); E11.9 Type 2 diabetes mellitus without complications
CPT/HCPCS: 36415; 80061; 83036

== ENCOUNTER → 2023-03-07 | Outpatient (CLI) | payer MEDICARE, OTHER, MEDICAID ==
[2023-03-07 11:58] LABS: Urine Bacteria NONE SEEN /hpf (None Seen); Urine Blood Negative /uL (Negative); Urine Mucus FEW (None Seen); Urine Specific Gravity 1.022 (1.001-1.035); Urine WBC 1 /hpf (0 - 5)
[2023-03-07 12:33] LABS: Potassium 3.6 mmol/L (3.5-5.1)
[2023-03-07 12:50] LABS: BUN/Creatinine Ratio 16.9 (10.0-20.0); Bilirubin, Total 0.7 mg/dL (0.2-1.0); Calcium 9.2 mg/dL (8.5-10.1); Total Protein 7.3 g/dL (6.4-8.2)
== END | disposition home or self-care (01) ==
LOC: LAB 10:58
PROVIDERS: ATTEND Internal Medicine
DX: D72.819 Decreased white blood cell count, unspecified (principal); R10.9 Unspecified abdominal pain; M06.9 Rheumatoid arthritis, unspecified
CPT/HCPCS: 36415; 80053; 81001; 82150; 83690

== ENCOUNTER → 2023-04-07 | Outpatient (CLI) | payer MEDICARE, OTHER, MEDICAID ==
[2023-04-07 10:56] LABS: Cholesterol 190 mg/dL (< 200); HDL Cholesterol 35 mg/dL (40-59); LDL Cholesterol 127 mg/dL (< 100); Triglycerides 155 mg/dL (< 150)
== END | disposition home or self-care (01) ==
LOC: LAB 08:41
PROVIDERS: ATTEND Internal Medicine
DX: E78.5 Hyperlipidemia, unspecified (principal)
CPT/HCPCS: 36415; 80061

== ENCOUNTER → 2023-07-15 | Outpatient (CLI) | payer MEDICARE, OTHER, MEDICAID ==
[~2023-07-15] MED LIST changes: +GABA-1250 PO; -GABA300C10 PO
== END | disposition home or self-care (01) ==
LOC: LAB 09:06
PROVIDERS: ATTEND Internal Medicine
DX: I10 Essential (primary) hypertension (principal); E55.9 Vitamin D deficiency, unspecified; E78.5 Hyperlipidemia, unspecified
CPT/HCPCS: 36415; 82565; 84520

== ENCOUNTER 2023-11-05 08:46 | Inpatient (IN) | payer MEDICARE, OTHER, MEDICAID ==
[~2023-11-05] VITALS: Ht 154.9 cm; Wt 61.4 kg
[2023-11-05 09:01] LABS: Basophils # (auto) 0 10 ^3/uL (0-0.2); Basophils % (auto) 0.5 % (0.0-2.0); Eosinophils # (auto) 0.1 10 ^3/uL (0-0.8); Eosinophils % (auto) 1.2 % (0.0-7.0); Hematocrit 41.1 % (36.0-46.0); Hemoglobin 13.6 g/dL (12.2-16.2); Lymphocytes # (auto) 1.6 10 ^3/uL (0.4-5.4); Lymphocytes % (auto) 26.7 % (10.0-50.0); Mean Corpuscular Hemoglobin 31.9 pg (28.0-32.0); Mean Corpuscular Hgb Conc. 33.1 g/dL (32.0-36.0); Mean Corpuscular Volume 96.2 fL (80.0-100.0); Monocytes # (auto) 0.7 10 ^3/uL (0-1.3); Monocytes % (auto) 11.2 % (0.0-12.0); Neutrophils # (auto) 3.7 10 ^3/uL (1.6-8.6); Neutrophils % (auto) 60.4 % (37.0-80.0); Nucleated Red Blood Cells % 0.1 %; Red Blood Cells 4.27 10^6/uL (4.0-5.20); Red Cell Distribution Width 15.3 % (11.8-14.3); White Blood Cell 6.1 10^3/uL (4.4-10.8)
[2023-11-05 09:19] LABS: Alanine Aminotransferase 23 U/L (7-40); Albumin 4.8 g/dL (3.2-4.8); Alkaline Phosphatase 82 U/L (46-116); Anion Gap 7 (5-15); Aspartate Aminotransferase 20 U/L (13-40); BUN/Creatinine Ratio 28.6 (10.0-20.0); Bilirubin, Total 0.7 mg/dL (0.2-1.0); Blood Urea Nitrogen 22 mg/dL (9-23); Carbon Dioxide 24 mmol/L (20-30); Chloride 107 mmol/L (98-107); Glucose 102 mg/dL (74-106); Potassium 4.4 mmol/L (3.5-5.1); Sodium 138 mmol/L (136-145); Total Protein 7.3 g/dL (5.7-8.2)
[2023-11-05] MEDS ORDERED: ASPirin 325 MG TAB PO ONE (10:15)
[2023-11-05] MEDS ORDERED: FAMOTIDINE (10MG/ML) 2ML VL IV ONE (10:15)
[2023-11-05 10:42] VITALS: PULSE 67; RESP 16; O2SAT 98
[2023-11-05] MEDS ORDERED: ONDANSETRON HCL 4 MG/2 ML VIAL IV PRN (12:00)
[2023-11-05] MEDS ORDERED: MORPHINE SULFATE INJ 2 MG/ml SYRG IV PRN ×2 (12:00)
[2023-11-05] MEDS ORDERED: ACETAMINOPHEN 325 MG TAB PO PRN (12:00)
[2023-11-05] MEDS ORDERED: NITROGLYCERIN 0.4 MG SL TAB SL PRN (12:00)
[2023-11-05 15:23] LABS: Urine Bacteria NONE SEEN /hpf (None Seen); Urine Blood Negative /uL (Negative); Urine Clarity Clear (Clear); Urine Color Colorless (Yellow); Urine Protein, UAD Negative (Negative); Urine Specific Gravity 1.012 (1.001-1.035); Urine Urobilinogen Normal (Negative); Urine WBC <1 /hpf (0 - 5)
[2023-11-05] MEDS: GABAPENTIN 300 MG CAP PO SCH ×2 (17:10→22:48)
[2023-11-05] MEDS: SODIUM CHLOR 0.9% PF (SALINE LOCK) 10ML VIAL/SYR IV SCH ×2 (17:11→22:48)
[2023-11-06] VITALS (17 sets, daily range): BP systolic 99–145; BP diastolic 50–86; PULSE 59–76; RESP 12–20; TEMP 97.4–98.2; O2SAT 92–100
[2023-11-06] MEDS: GABAPENTIN 300 MG CAP PO SCH ×2 (06:03→13:30)
[2023-11-06] MEDS: SODIUM CHLOR 0.9% PF (SALINE LOCK) 10ML VIAL/SYR IV SCH ×2 (06:03→14:00)
[2023-11-06 06:50] LABS: Partial Thromboplastin Time 26.8 SEC (24.5-34.5); Prothrombin Time 10.5 sec (9.3-11.8)
[2023-11-06 06:57] LABS: Alanine Aminotransferase 19 U/L (7-40); Alkaline Phosphatase 67 U/L (46-116); Anion Gap 7 (5-15); BUN/Creatinine Ratio 17.9 (10.0-20.0); Basophils # (auto) 0 10 ^3/uL (0-0.2); Basophils % (auto) 0.6 % (0.0-2.0); Blood Urea Nitrogen 14 mg/dL (9-23); Calcium 9.2 mg/dL (8.5-10.1); Carbon Dioxide 26 mmol/L (20-30); Chloride 107 mmol/L (98-107); Eosinophils # (auto) 0.2 10 ^3/uL (0-0.8); Eosinophils % (auto) 4.2 % (0.0-7.0); Glucose 90 mg/dL (74-106); Hematocrit 38.4 % (36.0-46.0); Hemoglobin 12.5 g/dL (12.2-16.2); LDL Cholesterol 147 mg/dL (< 100); Lymphocytes # (auto) 1.5 10 ^3/uL (0.4-5.4); Mean Corpuscular Hemoglobin 31.9 pg (28.0-32.0); Mean Corpuscular Hgb Conc. 32.5 g/dL (32.0-36.0); Monocytes # (auto) 0.6 10 ^3/uL (0-1.3); Monocytes % (auto) 15.2 % (0.0-12.0); Neutrophils # (auto) 1.4 10 ^3/uL (1.6-8.6); Nucleated Red Blood Cells % 0.1 %; Potassium 4.3 mmol/L (3.5-5.1); Red Blood Cells 3.91 10^6/uL (4.0-5.20); Red Cell Distribution Width 15.3 % (11.8-14.3); Sodium 140 mmol/L (136-145); Triglycerides 176 mg/dL (< 150); White Blood Cell 3.6 10^3/uL (4.4-10.8)
[2023-11-06 06:58] LABS: Albumin 4.2 g/dL (3.2-4.8); Aspartate Aminotransferase 17 U/L (13-40); Bilirubin, Total 0.9 mg/dL (0.2-1.0); Cholesterol 207 mg/dL (< 200); HDL Cholesterol 36 mg/dL (40-59); Total Protein 6.6 g/dL (5.7-8.2)
[2023-11-06] MEDS ORDERED: ANGIOMAX 250 MG VIAL IV ONE (07:38)
[2023-11-06] MEDS ORDERED: VERAPAMIL 2.5MG/ML INJ 2ML VIAL IV ONE (07:38)
[2023-11-06] MEDS ORDERED: MIDAZOLAM HCL 2MG/2ML 2ml VIAL (1mg/ml) ONE (07:39)
[2023-11-06] MEDS ORDERED: fentaNYL CITRATE 100 MCG/2 ML VL ONE (07:39)
[2023-11-06] MEDS ORDERED: LIDOCAINE 2%HCL (LOCAL ANESTH.) INJ 20ML MDV ONE (07:39)
[2023-11-06] MEDS ORDERED: SODIUM CHL 0.9% 0 ML ONE (07:39)
[2023-11-06] MEDS ORDERED: IODIXANOL 320MG/ML 100ML BTL IV ONE ×2 (07:39→08:00)
[2023-11-06] MEDS ORDERED: HEPARIN SODIUM (PORCINE) 5000 UNITS/ML 1ML VIAL ONE (07:41)
[2023-11-06] MEDS: METOPROLOL SUCCINATE XL 50 MG TAB PO SCH ×2 (10:00→12:45)
[2023-11-06] MEDS ORDERED: PANTOPRAZOLE 40 MG TAB PO SCH (10:00)
[2023-11-06] MEDS ORDERED: CLOPIDOGREL BISULFATE 75 MG TAB PO SCH (10:00)
[2023-11-06] MEDS ORDERED: ASPirin 81 mg TAB PO SCH (10:00)
[2023-11-06] MEDS ORDERED: PATIENTS OWN MEDICATION (Metoprolol Succinate (Metoprolol Succinate Er) 25 MG) PO SCH (10:00)
[2023-11-06] MEDS ORDERED: predniSONE 5 MG TAB PO SCH (10:00)
[2023-11-06] MEDS ORDERED: CLOPIDOGREL BISULFATE 75 MG TAB PO ONE (12:45)
[2023-11-06] MEDS ORDERED: ASPI-325 PO (13:17)
[2023-11-06] MEDS ORDERED: ATO40T PO (13:17)
[2023-11-07] MEDS ORDERED: CLOPIDOGREL BISULFATE 75 MG TAB PO SCH (10:00)
[2023-11-08] MEDS ORDERED: METHOTREXATE 2.5 MG TAB PO SCH (10:00)
== END 2023-11-06 17:14 | disposition home or self-care (01) | DRG 287 ==
LOC: ER 08:46 → TELE 12:05 → TELE-WESTW 22:15
PROVIDERS: ADMIT Internal Medicine Geriatric Medicine; ATTEND Internal Medicine
PROC: 4A023N7 Measurement of Cardiac Sampling and Pressure, Left Heart, Percutaneous Approach (ICD-10-PCS; principal; 2023-11-06)
PROC: B211YZZ Fluoroscopy of Multiple Coronary Arteries using Other Contrast (ICD-10-PCS; 2023-11-06)
PROC: B215YZZ Fluoroscopy of Left Heart using Other Contrast (ICD-10-PCS; 2023-11-06)
DX: I24.9 Acute ischemic heart disease, unspecified (principal); I25.10 Atherosclerotic heart disease of native coronary artery without angina pectoris; E78.5 Hyperlipidemia, unspecified; I10 Essential (primary) hypertension; M32.9 Systemic lupus erythematosus, unspecified; K21.9 Gastro-esophageal reflux disease without esophagitis; Z82.49 Family history of ischemic heart disease and other diseases of the circulatory system; Z86.79 Personal history of other diseases of the circulatory system; Z90.710 Acquired absence of both cervix and uterus; Z95.5 Presence of coronary angioplasty implant and graft
CPT/HCPCS: 36415; 71046; 80053; 80061; 81001; 84443; 84484; 85025; 85379; 85610; 85730; 87086; 93005; 93306; 93458; 96374; 99152; G0378; J2250; J3490; Q9967

== ENCOUNTER 2023-12-12 12:09 | Day surgery (SDC) | payer MEDICARE, OTHER, MEDICAID ==
[2023-12-05 10:12] LABS: Basophils # (auto) 0 10 ^3/uL (0-0.2); Basophils % (auto) 0.6 % (0.0-2.0); Eosinophils # (auto) 0.1 10 ^3/uL (0-0.8); Eosinophils % (auto) 2.1 % (0.0-7.0); Hematocrit 40.3 % (36.0-46.0); Hemoglobin 13.2 g/dL (12.2-16.2); Lymphocytes # (auto) 1.6 10 ^3/uL (0.4-5.4); Lymphocytes % (auto) 25.2 % (10.0-50.0); Mean Corpuscular Hemoglobin 31.8 pg (28.0-32.0); Mean Corpuscular Hgb Conc. 32.8 g/dL (32.0-36.0); Mean Corpuscular Volume 96.9 fL (80.0-100.0); Monocytes # (auto) 0.9 10 ^3/uL (0-1.3); Monocytes % (auto) 14.1 % (0.0-12.0); Neutrophils # (auto) 3.8 10 ^3/uL (1.6-8.6); Red Blood Cells 4.16 10^6/uL (4.0-5.20); Red Cell Distribution Width 14.6 % (11.8-14.3); White Blood Cell 6.5 10^3/uL (4.4-10.8)
[2023-12-05 10:18] LABS: INR 0.98 (0.9-1.15); Partial Thromboplastin Time 24.9 SEC (24.5-34.5); Prothrombin Time 10.3 sec (9.3-11.8)
[2023-12-05 11:13] LABS: Alanine Aminotransferase 16 U/L (7-40); Albumin 4.7 g/dL (3.2-4.8); Alkaline Phosphatase 66 U/L (46-116); Anion Gap 6 (5-15); Aspartate Aminotransferase 13 U/L (13-40); BUN/Creatinine Ratio 18.8 (10.0-20.0); Blood Urea Nitrogen 15 mg/dL (9-23); Carbon Dioxide 26 mmol/L (20-30); Chloride 111 mmol/L (98-107); Glucose 93 mg/dL (74-106); Potassium 4.6 mmol/L (3.5-5.1); Sodium 143 mmol/L (136-145)
[2023-12-05 11:14] LABS: Bilirubin, Total 0.7 mg/dL (0.2-1.0); Total Protein 7.3 g/dL (5.7-8.2)
[~2023-12-12] VITALS: Ht 152.4 cm; Wt 59.0 kg
[~2023-12-12 12:09] MED LIST changes: +ASPI-325 PO; +ATO40T PO
[2023-12-12] MEDS ORDERED: SODIUM CHLORIDE LOCK 10 ML ONE (12:12)
[2023-12-12 13:21] VITALS: PULSE 66; RESP 14; O2SAT 100
[2023-12-12] MEDS: diphenhdrAMINE HCL 50 MG/1 ML VL ONE (13:32)
[2023-12-12] MEDS: MIDAZOLAM HCL 5 MG/ML-1ML VIAL ONE (13:32)
[2023-12-12] MEDS: fentaNYL CITRATE 100 MCG/2 ML VL ONE (13:32)
[2023-12-12 13:58] VITALS: TEMP 97.5; O2SAT 100
[2023-12-12 14:35] VITALS: BP 123/63; PULSE 69; RESP 15; O2SAT 97
== END 2023-12-12 14:40 | disposition home or self-care (01) ==
LOC: GI 12:09
PROVIDERS: ATTEND Internal Medicine Gastroenterology
DX: Z12.11 Encounter for screening for malignant neoplasm of colon (principal); K64.8 Other hemorrhoids; I10 Essential (primary) hypertension; I25.119 Atherosclerotic heart disease of native coronary artery with unspecified angina pectoris; Z95.5 Presence of coronary angioplasty implant and graft; Z90.710 Acquired absence of both cervix and uterus; Z91.040 Latex allergy status; Z82.49 Family history of ischemic heart disease and other diseases of the circulatory system; Z79.82 Long term (current) use of aspirin; Z79.899 Other long term (current) drug therapy; Z98.891 History of uterine scar from previous surgery; Z98.51 Tubal ligation status; Z98.890 Other specified postprocedural states
CPT/HCPCS: 36415; 80053; 85025; 85610; 85730; G0121; J1200; J2250; J3010; J7030; 45378; 99152; 99153

== ENCOUNTER 2024-04-20 12:15 | Emergency (ER) | payer MEDICARE, OTHER, MEDICAID ==
[~2024-04-20] VITALS: Ht 152.4 cm; Wt 62.9 kg
[~2024-04-20 12:15] MED LIST changes: -ATO40T PO; +ATOR-507 PO
[2024-04-20 12:54] LABS: Basophils # (auto) 0 10 ^3/uL (0-0.2); Basophils % (auto) 0.6 % (0.0-2.0); Eosinophils # (auto) 0.2 10 ^3/uL (0-0.8); Eosinophils % (auto) 4.8 % (0.0-7.0); Hematocrit 36.2 % (36.0-46.0); Lymphocytes # (auto) 1.5 10 ^3/uL (0.4-5.4); Lymphocytes % (auto) 31.3 % (10.0-50.0); Mean Corpuscular Hemoglobin 32.3 pg (28.0-32.0); Mean Corpuscular Hgb Conc. 33.3 g/dL (32.0-36.0); Mean Corpuscular Volume 97.2 fL (80.0-100.0); Monocytes # (auto) 0.7 10 ^3/uL (0-1.3); Monocytes % (auto) 14.2 % (0.0-12.0); Neutrophils # (auto) 2.3 10 ^3/uL (1.6-8.6); Neutrophils % (auto) 49.1 % (37.0-80.0); Nucleated Red Blood Cells % 0.1 %; Red Blood Cells 3.72 10^6/uL (4.0-5.20); Red Cell Distribution Width 14.5 % (11.8-14.3); White Blood Cell 4.7 10^3/uL (4.4-10.8)
[2024-04-20 13:13] LABS: Alanine Aminotransferase 25 U/L (7-40); Albumin 4.4 g/dL (3.2-4.8); Alkaline Phosphatase 68 U/L (46-116); Anion Gap 4 (5-15); Aspartate Aminotransferase 19 U/L (13-40); BUN/Creatinine Ratio 23.1 (10.0-20.0); Blood Urea Nitrogen 18 mg/dL (9-23); Carbon Dioxide 28 mmol/L (20-30); Chloride 112 mmol/L (98-107); Glucose 102 mg/dL (74-106); Potassium 4.2 mmol/L (3.5-5.1); Sodium 144 mmol/L (136-145)
[2024-04-20 13:14] LABS: Bilirubin, Total 0.9 mg/dL (0.2-1.0); Total Protein 6.5 g/dL (5.7-8.2)
[2024-04-20] MEDS: FUROSEMIDE 40 MG/4 ML VIAL IV ONE (16:25)
[2024-04-20 16:29] VITALS: BP 141/57; PULSE 68; RESP 18; TEMP 97.8; O2SAT 98
== END 2024-04-20 16:53 | disposition home or self-care (01) ==
LOC: ER 12:15
DX: R60.9 Edema, unspecified (principal); I10 Essential (primary) hypertension; E78.5 Hyperlipidemia, unspecified; Z98.890 Other specified postprocedural states; Z91.040 Latex allergy status; Z79.899 Other long term (current) drug therapy
CPT/HCPCS: 36415; 71045; 80053; 83880; 84484; 85025; 93005; 93970; 96374; 99285; J1940

== ENCOUNTER → 2024-06-07 | Outpatient (CLI) | payer MEDICARE, OTHER, MEDICAID ==
[2024-06-07 10:02] LABS: Triglycerides 350 mg/dL (< 150)
[2024-06-07 10:03] LABS: LDL Cholesterol 138 mg/dL (< 100)
[2024-06-07 10:04] LABS: Cholesterol 242 mg/dL (< 200); HDL Cholesterol 38 mg/dL (40-59)
== END | disposition home or self-care (01) ==
LOC: LAB 09:20
PROVIDERS: ATTEND Internal Medicine
DX: E78.5 Hyperlipidemia, unspecified (principal)
CPT/HCPCS: 36415; 80061

== ENCOUNTER → 2024-08-11 | Outpatient (CLI) | payer MEDICARE, OTHER, MEDICAID ==
[~2024-08-11] MED LIST changes: +ACET-1882 PO
[2024-08-11 13:35] LABS: Chloride 106 mmol/L (98-107); Potassium 3.4 mmol/L (3.5-5.1); Sodium 139 mmol/L (136-145)
[2024-08-11 13:36] LABS: Anion Gap 7 (5-15); Calcium 10.8 mg/dL (8.7-10.4); Carbon Dioxide 26 mmol/L (20-30)
[2024-08-11 13:41] LABS: BUN/Creatinine Ratio 25.3 (10.0-20.0); Blood Urea Nitrogen 23 mg/dL (9-23); Glucose 121 mg/dL (74-106)
== END | disposition home or self-care (01) ==
LOC: LAB 12:25
PROVIDERS: ATTEND Internal Medicine
DX: R73.03 Prediabetes (principal); E72.50 Disorder of glycine metabolism, unspecified
CPT/HCPCS: 36415; 80048

== ENCOUNTER → 2024-08-13 | Outpatient (CLI) | payer MEDICARE, OTHER, MEDICAID ==
[2024-08-13 08:02] LABS: Basophils # (auto) 0 10 ^3/uL (0-0.2); Basophils % (auto) 0.7 % (0.0-2.0); Eosinophils # (auto) 0.1 10 ^3/uL (0-0.8); Eosinophils % (auto) 2.7 % (0.0-7.0); Hematocrit 39.8 % (36.0-46.0); Hemoglobin 13.8 g/dL (12.2-16.2); Lymphocytes # (auto) 1.7 10 ^3/uL (0.4-5.4); Lymphocytes % (auto) 33.9 % (10.0-50.0); Mean Corpuscular Hemoglobin 33.9 pg (28.0-32.0); Mean Corpuscular Hgb Conc. 34.6 g/dL (32.0-36.0); Mean Corpuscular Volume 97.8 fL (80.0-100.0); Monocytes # (auto) 0.7 10 ^3/uL (0-1.3); Monocytes % (auto) 13.8 % (0.0-12.0); Neutrophils # (auto) 2.4 10 ^3/uL (1.6-8.6); Neutrophils % (auto) 48.9 % (37.0-80.0); Platelet Count (auto) 253 10^3/uL (140-450); Red Blood Cells 4.07 10^6/uL (4.0-5.20); Red Cell Distribution Width 14.7 % (11.8-14.3); White Blood Cell 4.9 10^3/uL (4.4-10.8)
[2024-08-13 08:32] LABS: Erythrocyte Sedimentation Rate 2 mm/hr (0-20)
[2024-08-13 08:46] LABS: Triglycerides 113 mg/dL (< 150)
[2024-08-13 08:47] LABS: LDL Cholesterol 102 mg/dL (< 100)
[2024-08-13 08:48] LABS: Cholesterol 160 mg/dL (< 200); HDL Cholesterol 38 mg/dL (40-59)
== END | disposition home or self-care (01) ==
LOC: LAB 07:40
PROVIDERS: ATTEND Internal Medicine
DX: R73.03 Prediabetes (principal); E78.5 Hyperlipidemia, unspecified
CPT/HCPCS: 36415; 80061; 85025; 85652

== ENCOUNTER → 2024-09-24 | Outpatient (CLI) | payer MEDICARE, OTHER, MEDICAID ==
[2024-09-24 11:17] LABS: Urine Bacteria None Seen /hpf (None Seen)
[2024-09-24 11:47] LABS: Alanine Aminotransferase 36 U/L (7-40); Albumin 4.6 g/dL (3.2-4.8); Alkaline Phosphatase 59 U/L (46-116); Anion Gap 8 (5-15); Aspartate Aminotransferase 24 U/L (13-40); BUN/Creatinine Ratio 15.1 (10.0-20.0); Blood Urea Nitrogen 14 mg/dL (9-23); Calcium 10.2 mg/dL (8.7-10.4); Carbon Dioxide 24 mmol/L (20-31); Chloride 109 mmol/L (98-107); Glucose 100 mg/dL (74-106); LDL Cholesterol 81 mg/dL (< 100); Potassium 3.8 mmol/L (3.5-5.1); Sodium 141 mmol/L (136-145); Triglycerides 121 mg/dL (< 150)
[2024-09-24 11:48] LABS: Bilirubin, Total 0.9 mg/dL (0.2-1.0); Cholesterol 132 mg/dL (< 200); HDL Cholesterol 36 mg/dL (40-59); Total Protein 7.3 g/dL (5.7-8.2)
[2024-09-24 11:53] LABS: Urine Blood Negative /uL (Negative); Urine Clarity Clear (Clear); Urine Color Light-Yellow (Yellow); Urine Protein, UAD Negative (Negative); Urine Specific Gravity 1.017 (1.001-1.035); Urine Urobilinogen Normal (Negative); Urine pH 6.5 (5.0-9.0)
[2024-09-24 13:21] LABS: Urine WBC 3 /hpf (0 - 5)
[2024-09-24 13:22] LABS: Urine Epithelial Cast FEW /hpf (<5)
== END | disposition home or self-care (01) ==
LOC: LAB 11:03
PROVIDERS: ATTEND Internal Medicine
DX: M06.9 Rheumatoid arthritis, unspecified (principal); R39.15 Urgency of urination; E78.5 Hyperlipidemia, unspecified
CPT/HCPCS: 36415; 80053; 80061; 81001

== ENCOUNTER → 2024-11-09 | Outpatient (CLI) | payer MEDICARE, OTHER, MEDICAID ==
[~2024-11-09] MED LIST changes: +AMLO1TAB22 PO; +CEVI30CA8 OR; +DICY20TA2 PO; +DOCU-94 PO; +FENO48TA13 PO; +FLUT1SPR5; +GENT0.3S10 OP; +HYDR25TA5 GT; +LINA1CAP2 PO; +METF-370 PO; +MONT10TA23 PO; +NAPR5TAB4 PO; +NITR-87 PO; +NITR0.4S29 SL; +ONDA-155 PO; +RANO500T3 PO; +SUCR1TAB PO; +TRIA0.1P2 TOP
[2024-11-09 12:16] LABS: Basophils # (auto) 0 10 ^3/uL (0-0.2); Basophils % (auto) 0.9 % (0.0-2.0); Eosinophils # (auto) 0.2 10 ^3/uL (0-0.8); Hematocrit 38.9 % (36.0-46.0); Hemoglobin 13.2 g/dL (12.2-16.2); Lymphocytes # (auto) 2.2 10 ^3/uL (0.4-5.4); Lymphocytes % (auto) 50.7 % (10.0-50.0); Mean Corpuscular Hemoglobin 32.8 pg (28.0-32.0); Mean Corpuscular Hgb Conc. 33.8 g/dL (32.0-36.0); Mean Corpuscular Volume 96.9 fL (80.0-100.0); Monocytes # (auto) 0.4 10 ^3/uL (0-1.3); Monocytes % (auto) 9.8 % (0.0-12.0); Neutrophils # (auto) 1.5 10 ^3/uL (1.6-8.6); Neutrophils % (auto) 34.6 % (37.0-80.0); Nucleated Red Blood Cells % 0.1 %; Platelet Count (auto) 259 10^3/uL (140-450); Red Blood Cells 4.01 10^6/uL (4.0-5.20); Red Cell Distribution Width 14.4 % (11.8-14.3); White Blood Cell 4.3 10^3/uL (4.4-10.8)
[2024-11-09 12:34] LABS: INR 1.08 (0.9-1.15); Partial Thromboplastin Time 24.9 SEC (24.5-34.5); Prothrombin Time 11.4 sec (9.3-11.8)
[2024-11-09 12:35] LABS: Alanine Aminotransferase 21 U/L (7-40); Alkaline Phosphatase 61 U/L (46-116); Anion Gap 5 (5-15); Aspartate Aminotransferase 17 U/L (13-40); BUN/Creatinine Ratio 16.8 (10.0-20.0); Bilirubin, Total 1.2 mg/dL (0.2-1.0); Blood Urea Nitrogen 17 mg/dL (9-23); Carbon Dioxide 28 mmol/L (20-31); Glucose 105 mg/dL (74-106); Potassium 4.1 mmol/L (3.5-5.1); Sodium 142 mmol/L (136-145); Total Protein 7.5 g/dL (5.7-8.2)
[2024-11-09 12:36] LABS: Albumin 4.9 g/dL (3.2-4.8); Calcium 10.6 mg/dL (8.7-10.4); Chloride 109 mmol/L (98-107)
== END | disposition home or self-care (01) ==
LOC: LAB 12:00
PROVIDERS: ATTEND Internal Medicine
DX: Z01.812 Encounter for preprocedural laboratory examination (principal); Z79.01 Long term (current) use of anticoagulants
CPT/HCPCS: 36415; 80053; 85025; 85610; 85730

== ENCOUNTER 2024-11-10 11:29 | Day surgery (SDC) | payer MEDICARE, OTHER, MEDICAID ==
[2024-11-10] VITALS (12 sets, daily range): BP systolic 87–128; BP diastolic 52–64; PULSE 51–63; RESP 11–18; TEMP 98.7; O2SAT 95–98
[~2024-11-10] VITALS: Ht 152.4 cm; Wt 61.7 kg
[~2024-11-10 11:29] MED LIST changes: -DICY20TA PO; +IODIXANOL 320MG/ML 100ML BTL IV ONE; -METO25TA93 PO
[2024-11-10] MEDS ORDERED: IODIXANOL 320MG/ML 100ML BTL IV ONE (12:28)
[2024-11-10] MEDS ORDERED: LIDOCAINE 2%HCL (LOCAL ANESTH.) INJ 20ML MDV ONE (13:08)
[2024-11-10] MEDS ORDERED: SODIUM CHL 0.9% 0 ML ONE (13:08)
[2024-11-10] MEDS ORDERED: fentaNYL CITRATE 100 MCG/2 ML VL ONE (13:08)
[2024-11-10] MEDS ORDERED: HEPARIN SODIUM (PORCINE) 5000 UNITS/ML 1ML VIAL ONE (13:08)
[2024-11-10] MEDS ORDERED: MIDAZOLAM HCL 2MG/2ML 2ml VIAL (1mg/ml) ONE (13:08)
[2024-11-10] MEDS ORDERED: ANGIOMAX 250 MG VIAL IV ONE (13:08)
[2024-11-10] MEDS ORDERED: VERAPAMIL 2.5MG/ML INJ 2ML VIAL IV ONE (13:08)
--- NOTE | 2024-11-10 15:24 | DVHOP2 ---
Operative Report - 2 Report Details Date: 11/10/24 Preop Diagnosis: CAD Postop Diagnosis: s/p coronary angiogram Surgeon: Alma Moulton MD Panama Hat Blocker: none Anesthesiologist: none Anesthesia: Mac, Local Consent: The patient was informed of the risks and benefits of the procedure. These include but are not limited to complications of anesthesia, postoperative infection, incomplete relief of symptoms, recurrence of symptoms, damage to blood vessels, nerves and tendons, deep venous thrombosis, pulmonary embolism and possible need for repeat surgery in the future. Complications: Non Estimated Blood Loss: 5 cc Indications for Surgery: Chest pain/CAD Name of Procedure Performed Left heart catheterization, bilateral cine coronary angiography. Left ventriculography. Procedure Details Procedure Details: Prior local anesthesia with 2% lidocaine to the right wrist and full informed consent obtained patient was prepped and draped in usual fashion followed by placement of a six Mauritian sheath into the radial artery through which a five Mauritian tiger catheter was used for cannulation of both right and left coronary ostia and ventriculography not performed. Hemodynamics. Aortic blood pressure was 130/70. End-diastolic pressure was not obtained. Coronary anatomy: The RCA is large and normal. No significant disease noted in the RCA PDA or posterolateral branches. Left main is large and normal. The distal left main has mild plaquing along with the plaquing of the left anterior descending considered to be about 30-40%. The circumflex at the ostium has a calcified lesion also considered to be about 30-40%. The mid circumflex is free of significant disease. Left anterior descending coronary artery has been stented. As has the 1st diagonal. There are no significant residual lesions. The LAD is free of significant disease as are the diagonal vessels. There is no in stent restenosis. Impression: No significant in stent restenosis. Stable coronary vasculature. Recommendations: Continue medical therapy. Disposition Home Date of Service: Nov 10, 2024 Billing Provider: ALMA MOULTON Sr., MD Cardiology Common Codes: [id number] INP/OBS CARE (High) ALMA MOULTON Sr., MD Nov 10, 2024 15:24
== END 2024-11-10 17:15 | disposition home or self-care (01) ==
LOC: CATH 11:29
PROVIDERS: ATTEND Internal Medicine
DX: I25.10 Atherosclerotic heart disease of native coronary artery without angina pectoris (principal); I25.84 Coronary atherosclerosis due to calcified coronary lesion; Z91.040 Latex allergy status
CPT/HCPCS: 93454; C1887; C1894; J1644; J2250; J3010; J7040; Q9967; 93458; 99152

== ENCOUNTER → 2025-02-21 | Outpatient (CLI) | payer MEDICARE, OTHER, MEDICAID ==
[~2025-02-21] MED LIST changes: -IODIXANOL 320MG/ML 100ML BTL IV ONE
[2025-02-21 09:03] LABS: Alanine Aminotransferase 21 U/L (7-40); Alkaline Phosphatase 67 U/L (46-116); Anion Gap 10 (5-15); Aspartate Aminotransferase 14 U/L (13-40); BUN/Creatinine Ratio 17.9 (10.0-20.0); Blood Urea Nitrogen 15 mg/dL (9-23); Calcium 9.7 mg/dL (8.7-10.4); Carbon Dioxide 24 mmol/L (20-31); Sodium 143 mmol/L (136-145); Total Protein 7.1 g/dL (5.7-8.2)
[2025-02-21 09:04] LABS: Albumin 4.7 g/dL (3.2-4.8)
[2025-02-21 09:09] LABS: Chloride 109 mmol/L (98-107); Glucose 106 mg/dL (74-106)
[2025-02-21 09:14] LABS: Creatinine, Urine 77.53 mg/dL (30.0-125.0)
== END | disposition home or self-care (01) ==
LOC: LAB 07:53
PROVIDERS: ATTEND Internal Medicine
DX: I10 Essential (primary) hypertension (principal); E11.9 Type 2 diabetes mellitus without complications; E78.5 Hyperlipidemia, unspecified
CPT/HCPCS: 36415; 80053; 82043; 82570; 83036

== ENCOUNTER 2025-04-09 06:35 | Inpatient (IN) | payer MEDICARE, OTHER, MEDICAID ==
[~2025-04-09] VITALS: Ht 154.9 cm; Wt 62.7 kg
--- NOTE | 2025-04-09 06:53 | ED.PDOC ---
History of Present Illness HPI Comments 70F presents to the Er w/ prior MHx of CAD, High Lipids, HTN, Lupus, HLD;SHx of Stent x2 placed on the Carotid Artery, BTL, Cholecystectomy, hysterectomy, Tonsillectomy and the c/c of sternal CP. Pt reports on having sharp constant sternal CP for 1 day associated w/ SOB, N/ and Dizziness which all started 1 day ago. Denies chills, fever, /V/D. No other associated symptoms, modifiers, recent injuries or sick contacts present at this time. Chief Complaint: Chest Pain Time Seen by MD: 06:45 Primary Care Provider: Elfego Reviewed Notes: Nurses Notes, Medications, Allergies Allergies: Coded Allergies: Latex (Verified Allergy, Mild, 11/09/24) HIVES, ITCHING Home Meds Active Scripts Acetaminophen (Acetaminophen) 325 Mg Tab, 650 MG PO Q6HP PRN for 10 Days, #80 TAB Prov:BOOM MCBRIDE RESIDENT 08/16/24 Atorvastatin Calcium (Lipitor) 40 Mg Tab, 1 TAB PO DAILY, #30 TAB 5 Refills Prov:KORI VARGAS MD 11/06/23 Aspirin (Aspirin Low Dose) 81 Mg Tab, 81 MG PO DAILY for 100 Days, #100 TAB Prov:KORI VARGAS MD 11/06/23 Reported Medications Folic Acid (Folic Acid) 1 Mg Tab, 1 TAB PO DAILY 04/09/25 Cevimeline Hydrochloride Hemih (CEVIMELINE HCL) 30 Mg Cap, 30 MG OR TID for DRY MOUTH, CAP 11/09/24 Triamcinolone Acetonide (Triamcinolone Acetonide) 0.1 % Pst, 1 APPLIC TOP BIDP PRN for AFFECTED AREAS, APPLIC 11/09/24 Sucralfate (Sucralfate) 1 Gm Tab, 1 GM PO QID for GERD, GM 11/09/24 Montelukast Sodium (Singulair) 10 Mg Tab, 10 MG PO DAILY, TAB 11/09/24 Ranolazine (Ranolazine ER) 500 Mg Tab, 500 MG PO BID for CHEST PAIN, TAB 11/09/24 Ondansetron HCl (Ondansetron) 4 Mg Tab, 8 MG PO BIDP PRN for NAUSEA / VOMITING, TAB 11/09/24 Nitroglycerin (NTROSTAT SUBLINGUAL) 0.4 Mg Sl, 0.4 MG SL PRN for CHEST PAIN, TAB *MAY REPEAT EVERY 5 MINUTES X 3 TOTAL IF NO RELIEF, INITIATE ANALGESIC THERAPY. NOTIFY PHYSICIAN *Do not crush. 11/09/24 Naproxen Sodium (Anaprox Ds) 550 Mg Tab, 220 MG PO DAILY, TAB 11/09/24 Metformin Hydrochloride (Metformin Hcl) 500 Mg Tab, 500 MG PO IBID for DIABETES for 30 Days, MG 11/09/24 Nitrofurantoin Monohydrate Mac (Macrobid) 100 Mg Cap, 100 MG PO Q12HR for UTI, CAP 11/09/24 Linaclotide Base (Linzess) 72 Mcg Cap, 72 MCG PO DAILY for CONSTIPATION, CAP 11/09/24 Hctz (Hydrochlorothiazide) 25 Mg Tab, 12.5 MG GT for EDEMA/BP, TAB 11/09/24 Gentamicin Sulfate (Gentamicin Sulfate) 0.3 % Sonya, 1 DROP OP Q4HR, DROP 11/09/24 Fluticasone Propionate (Nasal) (Flonase Allergy Relief) 50 Mcg/Act Spr, 50 MCG NA DAILYP PRN for ALLERGIES, SPRAY 11/09/24 Fenofibrate (FENOFIBRATE) 48 Mg Tab, 48 MG PO DAILY for HIGH CHOLESTEROL, TAB 11/09/24 Dicyclomine HCl (Dicyclomine Hydrochloride) 20 Mg Tab, 20 MG PO BID, TAB 11/09/24 Docusate Sodium (Colace) 100 Mg Cap, 1 CAP PO BIDP PRN for FOR CONSTIPATION, #30 CAP 11/09/24 Amlodipine Besylate (Amlodipine Besylate) 5 Mg Tab, 5 MG PO DAILY for HTN, MG 11/09/24 Prednisone (Prednisone) 10 Mg Tab, 5 MG PO EOD, MG 5mg po every other day 09/17/22 Gabapentin (Gabapentin) 300 Mg Cap, 300 MG PO TID, CAP 09/17/22 Methotrexate (Methotrexate) 2.5 Mg Tab, 10 MG PO QWEEKLY for arthritis, TAB 09/17/22 Clopidogrel Bisulfate (Plavix) 75 Mg Tab, 40 MG PO DAILY, TAB 02/08/19 Omeprazole (Omeprazole) 20 Mg Cap, 40 MG PO DAILYPRN, CAP 01/06/19 Information Source: Patient Mode of Arrival: Ambulatory Severity: Moderate Timing: Hours Duration: Since onset, Hours Prehospital treatment: None Past Medical History PAST MEDICAL HISTORY: CAD, High Lipids, HTN Past Medical History (Other): Lupus, HLD Surgical History: BTL, Cholecystectomy, Hysterectomy, Tonsillectomy Surgical History (Other): Stent x2 placed on Carotid Artery LIQUID SUGAR MELTER History: No Pertinent LIQUID SUGAR MELTER History Family History Family History: Reviewed,noncontributory to illness, Unknown, Family hx of heart richard Family History (Other): sjogren's syndrome. Social History Smoker: Non-Smoker Alcohol: Denies ETOH Use Drugs: Denies Drug Use Lives In: Home Constitutional: denies: chills, diaphoresis, fatigue, fever, malaise, sweats, weakness, others EENTM: denies: blurred vision, double vision, ear bleeding, ear discharge, ear drainage, ear pain, ear ringing, eye pain, eye redness, hearing loss, mouth pain, mouth swelling, nasal discharge, nose bleeding, nose congestion, nose pain, photophobia, tearing, throat pain, throat swelling, voice changes, others Respiratory: reports: shortness of breath; denies: cough, hemoptysis, orthopnea, SOB at rest, SOB with excertion, stridor, wheezing, others Cardiovascular: reports: chest pain; denies: dizzy spells, diaphoresis, Dyspnea on exertion, edema, irregular heart beat, left arm pain, lightheadedness, palpitations, PND, syncope, others Gastrointestinal: reports: nausea; denies: abdomen distended, abdominal pain, blood streaked bowels, constipated, diarrhea, dysphagia, difficulty swallowing, hematemesis, melena, poor appetite, poor fluid intake, rectal bleeding, rectal pain, vomiting, others Genitourinary: denies: abnormal vagina bleeding, burning, dyspareunia, dysuria, flank pain, frequency, hematuria, incontinence, pain, , vagina discharg e, urgency, others Neurological: reports: dizziness; denies: fainting, headache, left sided numbness, left sided weakness, numbness, paresthesia, pre-existing deficit, right sided numbness, right sided weakness, seizure, speech problems, tingling, tremors, weakness, others Musculoskeletal: denies: back pain, gout, joint pain, joint swelling, muscle pain, muscle stiffness, neck pain, others Integumetry: denies: bruises, change in color, change in hair/nails, dryness, laceration, lesions, lumps, rash, wounds, others Allergic/Immunocompromised: denies: Difficulty Healing, Frequent Infections, Hives, Itching, others Hematologic/Lymphatic: denies: anemia, blood clots, easy bleeding, easy bruising, swollen glands, others Endocrine: denies: excessive hunger, excessive sweating, excessive thirst, excessive urination, flushing, intolerance to cold, intolerance to heat, unexplained weight gain, unexplained weight loss, others Psychiatric: denies: anxiety, bipolar disorder, depression, hopeless, panic disorder, schizophrenia, sleepless, suicidal, others All Other Systems: Reviewed and Negative Physical Exam General Appearance: Moderate Distress, Normal HEENT: Normal ENT Inspection, Pharynx Normal, TMs Normal Neck: Full Range of Motion, Non-Tender, Normal, Normal Inspection Respiratory: Chest Non-Tender, Lungs Clear, No Accessory Muscle Use, No Respiratory Distress, Normal Breath Sounds Cardiovascular: No Edema, No JVD, No Murmur, No Gallop, Normal Peripheral P ulses, Regular Rate/Rhythm Breast Exam: Deferred Gastrointestinal: No Organomegaly, Non Tender, No Pulsatile Mass, Normal Bowel Sounds, Soft Genitalia: Deferred Pelvic: Deferred Rectal: Deferred Extremities: No calf tenderness, Normal capillary refill, Normal inspection, Normal range of motion, Non-tender, No pedal edema Musculoskeletal : Apperance: Normal Neurologic: Alert, gymnasium teacher II-XII nml as Tested, No Motor Deficits, Normal Affect, Normal Mood, No Sensory Deficits Cerebellar Function: NOT DONE Reflexes: NOT DONE Skin: Dry, Normal Color, Warm Peripheral Pulses: 3+ Radial (R), 3+ Radial (L) Lymphatic: No Adenopathy Was a procedure done? Was a procedure done?: No EKG EKG : Pulse Rate (adult): 54 Cardiac Rhythm: NSR Differential Dx Considerations may include: Anemia Electrolyte imbalance X-Ray, Labs, Meds, VS Vital Signs Date Time Temp Pulse Resp B/P (MAP) Pulse Ox O2 Delivery O2 Flow Rate FiO2 04/09/25 07:24 65 04/09/25 07:24 98.2 65 16 146/87 (106) 98 98.2 04/09/25 06:57 54 04/09/25 06:43 54 04/09/25 06:42 98.1 66 16 162/68 (99) 99 98.1 Lab Test 04/09/25 08:10 04/09/25 07:23 04/09/25 07:00 Range/Units Troponin I High Sensitivity 5 6 </=34 ng/L Urine Color Light-yellow Yellow Urine Clarity Clear Clear Urine pH 7.0 5.0-9.0 Urine Specific [employer] 1.010 1.001-1.035 Urine Protein Negative Negative Urine Ketones Negative Negative Urine Blood Negative Negative /uL Urine Nitrite Negative Negative Urine Bilirubin Negative Negative Urine Urobilinogen Normal Negative mg/dL Urine Leukocyte Esterase Negative Negative /uL Urine RBC <1 0 - 4 /hpf Urine Microscopic WBC 1 0-5 /HPF Urine Squamous Epithelial Cells Few <5 /hpf Urine Bacteria None seen None Seen /hpf Urine Glucose Normal Normal mg/dL White Blood Count 3.3 L 4.4-10.8 10^3/uL Red Blood Count 3.81 L 4.0-5.20 10^6/uL Hemoglobin 12.9 12.2-16.2 g/dL Hematocrit 37.7 36.0-46.0 % Mean Corpuscular Volume 98.7 80.0-100.0 fL Mean Corpuscular Hemoglobin 33.7 H 28.0-32.0 pg Mean Corpuscular Hemoglobin Concent 34.1 32.0-36.0 g/dL Red Cell Distribution Width 14.0 11.8-14.3 % Platelet Count 236 140-450 10^3/uL Mean Platelet Volume 7.8 6.9-10.8 fL Neutrophils (%) (Auto) 40.4 37.0-80.0 % Lymphocytes (%) (Auto) 40.9 10.0-50.0 % Monocytes (%) (Auto) 13.8 H 0.0-12.0 % Eosinophils (%) (Auto) 4.3 0.0-7.0 % Basophils (%) (Auto) 0.6 0.0-2.0 % Neutrophils # (Auto) 1.3 L 1.6-8.6 10 ^3/uL Lymphocytes # (Auto) 1.3 0.4-5.4 10 ^3/uL Monocytes # (Auto) 0.5 0-1.3 10 ^3/uL Eosinophils # (Auto) 0.1 0-0.8 10 ^3/uL Basophils # (Auto) 0 0-0.2 10 ^3/uL Nucleated Red Blood Cells 0.1 % Sodium Level 145 136-145 mmol/L Potassium Level 3.6 3.5-5.1 mmol/L Chloride Level 109 H 98-107 mmol/L Carbon Dioxide Level 25 20-31 mmol/L Anion Gap 11 5-15 Blood Urea Nitrogen 11 9-23 mg/dL Creatinine 0.87 0.550-1.02 mg/dL Glomerular Filtration Rate Calc 72 >90 mL/min BUN/Creatinine Ratio 12.6 10.0-20.0 Serum Glucose 118 H 74-106 mg/dL Hemoglobin A1c 5.6 <5.7 % A1C Calcium Level 10.1 8.7-10.4 mg/dL Magnesium Level 1.9 1.6-2.6 mg/dL Triglycerides Level 140 < 150 mg/dL Cholesterol Level 144 < 200 mg/dL LDL Cholesterol 87 < 100 mg/dL HDL Cholesterol 38 L 40-59 mg/dL Thyroid Stimulating Hormone (TSH) 2.42 0.55-4.78 uIU/mL Current Medications Medications (Trade) Dose Ordered Sig/Leela Route Start Time Stop Time Status Last Admin Aspirin 162 mg ONCE ONCE PO 04/09/25 07:00 04/09/25 07:01 DC 04/09/25 07:22 Patient alert. Complaining of chest pain. EKG reviewed does not show any acute changes. Vitals stable. Has stent placement. Currently taking Plavix. Was given aspirin. Reviewed her history. Does have lupus. Currently taking prednisone. Explained to the patient. Continue monitoring. PROCEDURE(s): CXR1 - CHEST XRAY 1 VIEW REASON: ORDER NUMBER(s): [id number], ACCESSION NUMBER(s): [id number] EXAM: XR Chest, 1 View CLINICAL INDICATION: cp TECHNIQUE: Frontal view of the chest. COMPARISON: XY CHEST XRAY 1 VIEW on DOS: 08/15/24, XY CHEST PORTABLE on DOS: 04/20/24, CHEST PORTABLE on DOS: 12/10/22, CXRP on DOS: 12/10/22 FINDINGS: LUNGS AND PLEURAL SPACES: Unremarkable. No consolidation. No pneumothorax. HEART: Unremarkable. No cardiomegaly. MEDIASTINUM: Unremarkable. Normal mediastinal contour. BONES/JOINTS: Unremarkable. No acute fracture. OTHER FINDINGS: . IMPRESSION: No acute cardiopulmonary process. PROCEDURE(s): BLDVT - BiLat Lower DVT REASON: cp ORDER NUMBER(s): [id number], ACCESSION NUMBER(s): [id number] Bilateral lower extremity venous duplex Clinical History: cp Comparison: US BILAT LOWER DVT on DOS: 04/20/24 Technique: Duplex Doppler evaluation of the deep venous systems of both lower extremities from the common femoral veins to the popliteal veins including color Doppler and spectral/pulsed waveform analysis was performed. Findings: RIGHT SIDE: The common femoral vein demonstrates appropriate compressibility and waveform variability. There is compressibility/patency of the great saphenous vein at the proximal thigh. The femoral vein demonstrates appropriate compressibility and waveform variability. The deep femoral vein demonstrates appropriate compressibility and waveform variability. The popliteal vein demonstrates appropriate compressibility and waveform variability. There is normal compressibility at the tibioperoneal trunk. LEFT SIDE: The common femoral vein demonstrates appropriate compressibility and waveform variability. There is compressibility/patency of the great saphenous vein at the proximal thigh. The femoral vein demonstrates appropriate compressibility and waveform variability. The deep femoral vein demonstrates appropriate compressibility and waveform variability. The popliteal vein demonstrates appropriate compressibility and waveform variability. There is normal compressibility at the tibioperoneal trunk. Impression: No right or left femoropopliteal venous thrombosis. Time of 1ST Reevaluation: 07:15 Reevaluation 1ST: Unchanged Patient Education/Counseling: Diagnosis, Treatment, Prognosis Family Education/Counseling: No Family Present Departure 1 Departure Time of Disposition: 06:56 Impression: Primary Impression: Chest pain of unknown etiology Additional Impression: Hypertension Qualified Codes: I10 - Essential (primary) hypertension Disposition: 09 ADMITTED INPATIENT Admit to: Med Surg Condition: Guarded Critical Care Note Critical Care Time?: Yes (90 min-critical care time only) Critical care comment: Chest pain was given aspirin continue to monitor possibly need echo Stability Stability form required: No Heart Score Heart Score: Heart Score Response (Comments) Value History Slightly Suspicious 0 EKG Normal 0 Age >65 2 Risk Factors >3 or Hx ASHD 2 Troponin Normal limit 0 Total 4 I personally scribed for JEANMARIE DUENAS MD ([email or web address]) on 04/09/25 at 06:53. Electronically submitted by Emmanuel Zavaleta ([email or web address]). I personally scribed for JEANMARIE DUENAS MD ([email or web address]) on 04/09/25 at 08:49. Electronically submitted by Emmanuel Zavaleta (BRIANNAWhaleback SystemsHarvinder). I personally scribed for JEANMARIE DUENAS MD ([email or web address]) on 04/09/25 at 10:40. Electronically submitted by Emmanuel Zavaleta ([employer]RIANNAWhaleback SystemsHarvinder). I personally scribed for JEANMARIE DUENAS MD ([email or web address]) on 04/09/25 at 13:30. Electronically submitted by Emmanuel Zavaleta ([employer]RIANNAWhaleback SystemsHarvinder). JEANMARIE DUENAS MD April 09, 2025 06:53
[2025-04-09] MEDS: ASPirin 81 mg TAB PO ONE (07:22)
[2025-04-09 07:29] LABS: Basophils # (auto) 0 10 ^3/uL (0-0.2); Basophils % (auto) 0.6 % (0.0-2.0); Eosinophils # (auto) 0.1 10 ^3/uL (0-0.8); Eosinophils % (auto) 4.3 % (0.0-7.0); Hematocrit 37.7 % (36.0-46.0); Hemoglobin 12.9 g/dL (12.2-16.2); Lymphocytes # (auto) 1.3 10 ^3/uL (0.4-5.4); Lymphocytes % (auto) 40.9 % (10.0-50.0); Mean Corpuscular Hemoglobin 33.7 pg (28.0-32.0); Mean Corpuscular Hgb Conc. 34.1 g/dL (32.0-36.0); Mean Corpuscular Volume 98.7 fL (80.0-100.0); Monocytes # (auto) 0.5 10 ^3/uL (0-1.3); Monocytes % (auto) 13.8 % (0.0-12.0); Neutrophils # (auto) 1.3 10 ^3/uL (1.6-8.6); Neutrophils % (auto) 40.4 % (37.0-80.0); Nucleated Red Blood Cells % 0.1 %; Platelet Count (auto) 236 10^3/uL (140-450); Red Blood Cells 3.81 10^6/uL (4.0-5.20); White Blood Cell 3.3 10^3/uL (4.4-10.8)
[2025-04-09 07:30] LABS: Anion Gap 11 (5-15); Carbon Dioxide 25 mmol/L (20-31); Potassium 3.6 mmol/L (3.5-5.1); Sodium 145 mmol/L (136-145)
[2025-04-09 07:31] LABS: Calcium 10.1 mg/dL (8.7-10.4); Chloride 109 mmol/L (98-107)
[2025-04-09 07:36] LABS: BUN/Creatinine Ratio 12.6 (10.0-20.0); Blood Urea Nitrogen 11 mg/dL (9-23); Glucose 118 mg/dL (74-106)
[2025-04-09 08:10] LABS: Urine Bacteria None Seen /hpf (None Seen)
[2025-04-09] MEDS ORDERED: METHOTREXATE 2.5 MG TAB PO SCH (08:15)
[2025-04-09] MEDS ORDERED: ACETAMINOPHEN 325 MG TAB PO PRN (08:15)
[2025-04-09] MEDS ORDERED: MORPHINE SULFATE INJ 2 MG/ml SYRG IV PRN (08:15)
[2025-04-09] MEDS ORDERED: MORPHINE SULFATE 4 MG/ML SYR/VIAL IV PRN (08:15)
[2025-04-09] MEDS ORDERED: NITROGLYCERIN 0.4 MG SL TAB SL PRN ×2 (08:15)
[2025-04-09 08:35] LABS: Urine Blood Negative /uL (Negative); Urine Clarity Clear (Clear); Urine Color Light-Yellow (Yellow); Urine Protein, UAD Negative (Negative); Urine Squamous Epithelial Cell FEW /hpf (<5); Urine Urobilinogen Normal (Negative); Urine WBC 1 /HPF (0-5)
--- NOTE | 2025-04-09 08:42 | DVH ---
EXAM: XR Chest, 1 View CLINICAL INDICATION: cp TECHNIQUE: Frontal view of the chest. COMPARISON: XY CHEST XRAY 1 VIEW on DOS: 08/15/24, XY CHEST PORTABLE on DOS: 04/20/24, CHEST PORTABLE on DOS: 12/10/22, CXRP on DOS: 12/10/22 FINDINGS: LUNGS AND PLEURAL SPACES: Unremarkable. No consolidation. No pneumothorax. HEART: Unremarkable. No cardiomegaly. MEDIASTINUM: Unremarkable. Normal mediastinal contour. BONES/JOINTS: Unremarkable. No acute fracture. OTHER FINDINGS: . IMPRESSION: No acute cardiopulmonary process.
[2025-04-09 09:00] VITALS: PULSE 57; RESP 12; O2SAT 97
[2025-04-09] MEDS ORDERED: FOLI-119 PO (09:13)
--- NOTE | 2025-04-09 09:34 | DVHHP2 ---
History of Present Illness Reason for Visit: Chest pain History of Present Illness Sarahi Louise is a 70-year-old female with past medical history of CAD status post PTCA x2 at [facility] in October of 2024, hypertension, hyperlipidemia, lupus, cholecystectomy, hysterectomy, tonsillectomy, and bilateral tubal ligation who presents to the ED with chest pain with nausea, vomiting, and shortness of breath since yesterday. She reports that eating makes the pain go away. Also endorses that sometimes nothing makes the pain better. Patient reports that around 11:00 a.m. she developed chest pain while sitting in eating complaining about 7/10 pressure-like poking like and constant in nature. She also reports that the pain has been radiating down to her legs bilaterally causing burning sensation and aching. She reports the pain a 5/10 and constant in her legs. She denies any recent trauma or injury, recent sick contacts, recent travels, recent ingestion of spoiled food, fever, chills, lightheadedness, weakness, dizziness, abdominal pain, or diarrhea. Cardiovascular: CAD, HTN, hyperipidemia Past Medical History Lupus Past Surgical History: Cholecystectomy, Hysterectomy, Other (PTCA x2), Tubal Ligation, Tonsillectomy Family History: Other (Both mom and dad with NC both ) Smoke: No ALCOHOL: none Drugs: None Lives: with Family Domestic Violence: Neg Review of Systems Respiratory: Shortness of breath Cardiovascular: Chest Pain Gastrointestinal: Nausea, Vomiting Musculoskeletal: leg pain Allergies: Coded Allergies: Latex (Verified Allergy, Mild, 11/09/24) HIVES, ITCHING Medications Current Medications Medications Dose Ordered Sig/Leela Route Start Time Stop Time Status Last Admin Dose Admin Morphine Sulfate 2 mg Q30MP PRN IV 04/09/25 08:15 UNV Acetaminophen 650 mg Q6HP PRN PO 04/09/25 08:15 UNV Nitroglycerin 0.4 mg Q5MINP PRN SL 04/09/25 08:15 UNV Ondansetron HCl 4 mg Q4HP PRN IV 04/09/25 08:15 UNV Nitroglycerin 0.4 mg Q5MINP PRN SL 04/09/25 08:15 UNV Morphine Sulfate 2 mg Q30M PRN IV 04/09/25 08:15 UNV Amlodipine Besylate 5 mg DAILY PO 04/09/25 10:00 UNV Aspirin 81 mg DAILY PO 04/09/25 10:00 UNV Clopidogrel Bisulfate 40 mg DAILY PO 04/09/25 10:00 UNV Gabapentin 300 mg TID PO 04/09/25 14:00 UNV Hydrochlorothiazide 12.5 mg DAILY GT 04/09/25 10:00 UNV Methotrexate 10 mg QWEEKLY PO 04/09/25 08:15 UNV Montelukast Sodium 10 mg DAILY PO 04/09/25 10:00 UNV Ranolazine 500 mg BID PO 04/09/25 10:00 UNV Sucralfate 1 gm QID PO 04/09/25 12:00 UNV Patient Own Medication 1 tab DAILY PO 04/09/25 10:00 UNV Patient Own Medication 30 mg TID OR 04/09/25 14:00 UNV Patient Own Medication 20 mg BID PO 04/09/25 10:00 UNV Patient Own Medication 48 mg DAILY PO 04/09/25 10:00 UNV Patient Own Medication 72 mcg DAILY PO 04/09/25 10:00 UNV Exam Vital Signs Vital Signs Date Time Temp Pulse Resp B/P (MAP) Pulse Ox O2 Delivery O2 Flow Rate FiO2 04/09/25 07:24 65 04/09/25 07:24 98.2 16 146/87 (106) 98 98.2 General Appearance: Alert, Oriented X3, Cooperative, No acute distress HEENT: Atraumatic, PERRLA, EOMI, Mucous membr. moist/pink Respiratory: Clear to auscultation, Normal air movement Cardiovascular: Normal S1, Normal S2, No murmurs Abdominal: Normal bowel sounds, Soft, No tenderness, No hepatospenomegaly, No masses Extremities: No clubbing, No cyanosis, Normal pulses Skin: No significant lesion Neuro: Normal speech, Strength at 5/5 X4 ext, Normal tone, Sensation intact Psych/Mental Status: Mental status NL, Mood NL Labs/Xrays Labs Test 04/09/25 08:10 04/09/25 07:23 04/09/25 07:00 Range/Units Troponin I High Sensitivity 5 </=34 ng/L Urine Color Light-yellow Yellow Urine Clarity Clear Clear Urine pH 7.0 5.0-9.0 Urine Specific [place] 1.010 1.001-1.035 Urine Protein Negative Negative Urine Ketones Negative Negative Urine Blood Negative Negative /uL Urine Nitrite Negative Negative Urine Bilirubin Negative Negative Urine Urobilinogen Normal Negative mg/dL Urine Leukocyte Esterase Negative Negative /uL Urine RBC <1 0 - 4 /hpf Urine Microscopic WBC 1 0-5 /HPF Urine Squamous Epithelial Cells Few <5 /hpf Urine Bacteria None seen None Seen /hpf Urine Glucose Normal Normal mg/dL White Blood Count 3.3 L 4.4-10.8 10^3/uL Red Blood Count 3.81 L 4.0-5.20 10^6/uL Hemoglobin 12.9 12.2-16.2 g/dL Hematocrit 37.7 36.0-46.0 % Mean Corpuscular Volume 98.7 80.0-100.0 fL Mean Corpuscular Hemoglobin 33.7 H 28.0-32.0 pg Mean Corpuscular Hemoglobin Concent 34.1 32.0-36.0 g/dL Red Cell Distribution Width 14.0 11.8-14.3 % Platelet Count 236 140-450 10^3/uL Mean Platelet Volume 7.8 6.9-10.8 fL Neutrophils (%) (Auto) 40.4 37.0-80.0 % Lymphocytes (%) (Auto) 40.9 10.0-50.0 % Monocytes (%) (Auto) 13.8 H 0.0-12.0 % Eosinophils (%) (Auto) 4.3 0.0-7.0 % Basophils (%) (Auto) 0.6 0.0-2.0 % Neutrophils # (Auto) 1.3 L 1.6-8.6 10 ^3/uL Lymphocytes # (Auto) 1.3 0.4-5.4 10 ^3/uL Monocytes # (Auto) 0.5 0-1.3 10 ^3/uL Eosinophils # (Auto) 0.1 0-0.8 10 ^3/uL Basophils # (Auto) 0 0-0.2 10 ^3/uL Nucleated Red Blood Cells 0.1 % Sodium Level 145 136-145 mmol/L Potassium Level 3.6 3.5-5.1 mmol/L Chloride Level 109 H 98-107 mmol/L Carbon Dioxide Level 25 20-31 mmol/L Anion Gap 11 5-15 Blood Urea Nitrogen 11 9-23 mg/dL Creatinine 0.87 0.550-1.02 mg/dL Glomerular Filtration Rate Calc 72 >90 mL/min BUN/Creatinine Ratio 12.6 10.0-20.0 Serum Glucose 118 H 74-106 mg/dL Calcium Level 10.1 8.7-10.4 mg/dL EXAM: XR Chest, 1 View CLINICAL INDICATION: cp TECHNIQUE: Frontal view of the chest. COMPARISON: XY CHEST XRAY 1 VIEW on DOS: 08/15/24, XY CHEST PORTABLE on DOS: 04/20/24, CHEST PORTABLE on DOS: 12/10/22, CXRP on DOS: 12/10/22 FINDINGS: LUNGS AND PLEURAL SPACES: Unremarkable. No consolidation. No pneumothorax. HEART: Unremarkable. No cardiomegaly. MEDIASTINUM: Unremarkable. Normal mediastinal contour. BONES/JOINTS: Unremarkable. No acute fracture. OTHER FINDINGS: . IMPRESSION: No acute cardiopulmonary process. Bilateral lower extremity venous duplex Clinical History: cp Comparison: US BILAT LOWER DVT on DOS: 04/20/24 Technique: Duplex Doppler evaluation of the deep venous systems of both lower extremities from the common femoral veins to the popliteal veins including color Doppler and spectral/pulsed waveform analysis was performed. Findings: RIGHT SIDE: The common femoral vein demonstrates appropriate compressibility and waveform variability. There is compressibility/patency of the great saphenous vein at the proximal thigh. The femoral vein demonstrates appropriate compressibility and waveform variability. The deep femoral vein demonstrates appropriate compressibility and waveform variability. The popliteal vein demonstrates appropriate compressibility and waveform variability. There is normal compressibility at the tibioperoneal trunk. LEFT SIDE: The common femoral vein demonstrates appropriate compressibility and waveform variability. There is compressibility/patency of the great saphenous vein at the proximal thigh. The femoral vein demonstrates appropriate compressibility and waveform variability. The deep femoral vein demonstrates appropriate compressibility and waveform variability. The popliteal vein demonstrates appropriate compressibility and waveform variability. There is normal compressibility at the tibioperoneal trunk. Impression: No right or left femoropopliteal venous thrombosis. Assessment/Plan Assessment/Plan Assessment Chest pain rule out ACS Bilateral lower extremity pain rule out DVT History of CAD status post PTCA x2 at [facility] in October of 2024 History of hypertension History of hyperlipidemia History of lupus History of cholecystectomy History of hysterectomy History of tonsillectomy History of bilateral tubal ligation Plan Admit to [facility] Aspirin EKG Troponin negative Chest x-ray Echo ordered Lipid panel UDS TSH Mag level A1c Replete lytes Bilateral lower extremity ultrasound venous Last echo on 08/17/2024 EF 55% Diet Home medications reconciled DVT prophylaxis-patient on Plavix PUD prophylaxis-PPIs Discussed plan of care with patient and nurse Rounding team to consider cardiac consult if symptoms worsen Plan discussed with: Patient My Orders Orders - JAROD LINK HAZ TECH Procedure Category Date Status Time Chest Xray 1 View XY 04/09/25 Resulted 08:15 Admit ADMIT 04/09/25 Transmitted 08:15 Code Status CODE 04/09/25 Transmitted 08:15 Vital Signs JEREMY 04/09/25 In Process 08:15 Cook House Supervisor JEREMY 04/09/25 In Process 08:15 Cardiac DIET 04/09/25 Transmitted Diet-2gna,Lofat,Lochol Breakfast Morphine Sulfate PHA 04/09/25 Logged Injection 08:15 Acetaminophen Tablet PHA 04/09/25 Logged (Tylenol Tablet) 08:15 Complete Blood Count LAB 04/10/25 Verified 04:00 Basic Metabolic Panel LAB 04/10/25 Verified 04:00 Magnesium LAB 04/10/25 Verified 04:00 Echo 2d Mode Cardiac US 04/09/25 Logged DOP 08:15 Nitroglycerin PHA 04/09/25 Logged Sublingual (Ntrostat 08:15 Ondansetron Hcl PHA 04/09/25 Logged (Zofran) 08:15 Electrocardigram EKG 04/10/25 Logged 04:00 Troponin-I Hs LAB 04/09/25 Logged 08:15 Cardiac JEREMY 04/09/25 In Process Rehabilitation - Outpa Nitroglycerin PHA 04/09/25 Logged Sublingual (Ntrostat 08:15 Morphine Sulfate PHA 04/09/25 Logged Injection 08:15 Stat Ekg For Chest JEREMY 04/09/25 In Process Pain 08:15 Notify Of Changes JEREMY 04/09/25 In Process From Base 08:15 Portable Sawmill Operator For JEREMY 04/09/25 In Process 24 Hours 08:15 Emergency Dysrhythmia JEREMY 04/09/25 In Process Protocol 08:15 Rhythm Strips Once JEREMY 04/09/25 In Process Every Shift 08:15 Oxygen By Nasal RT 04/09/25 Transmitted Cannula 08:15 Bilat Lower Dvt US 04/09/25 Logged 08:15 Hemoglobin A1c LAB 04/09/25 Logged 08:15 Drug Screen LAB 04/09/25 Logged 08:15 Lipid Panel LAB 04/09/25 Logged 08:15 Amlodipine Tablet PHA 04/09/25 Logged (Norvasc Tablet) 10:00 Aspirin Enteric PHA 04/09/25 Logged Coated Tablet 10:00 Clopidogrel Bisulfate PHA 04/09/25 Logged (Plavix) 10:00 Gabapentin Capsule PHA 04/09/25 Logged (Neurontin Capsule) 14:00 Hydrochlorothiazide PHA 04/09/25 Logged Tablet (Hydrochlorot 10:00 Methotrexate PHA 04/09/25 Logged (Methotrexate) 08:15 Montelukast Tablet PHA 04/09/25 Logged (Singulair Tablet) 10:00 Ranolazine (Ranexa Er) PHA 04/09/25 Logged 10:00 Sucralfate Tab PHA 04/09/25 Logged (Carafate Tab) 12:00 (Nf) Atorvastatin PHA 04/09/25 Logged Calcium (Lipitor) 10:00 (Nf) Cevimeline PHA 04/09/25 Logged Hydrochloride Hemih 14:00 (Nf) Dicyclomine Hcl PHA 04/09/25 Logged (Dicyclomine Hydroc 10:00 (Nf) Fenofibrate PHA 04/09/25 Logged 10:00 (Nf) Linaclotide Base PHA 04/09/25 Logged (Linzess) 10:00 Magnesium LAB 04/09/25 Transmitted 09:13 Magnesium Edwin PHA 04/09/25 Transmitted 09:15 Thyroid Stimulating LAB 04/09/25 Verified Hormone 09:14 Date of Service: April 09, 2025 Billing Provider: JAROD LINK Common Visit Codes: [id number] INP/OBS CARE (HIGH) JAROD LINK April 09, 2025 09:34
[2025-04-09 09:58] LABS: Triglycerides 140 mg/dL (< 150)
[2025-04-09 09:59] LABS: LDL Cholesterol 87 mg/dL (< 100)
[2025-04-09 10:00] LABS: Cholesterol 144 mg/dL (< 200)
[2025-04-09] MEDS ORDERED: DICYCLOMINE HCL 10 MG CAP PO SCH (10:00)
[2025-04-09] MEDS: MONTELUKAST SODIUM 10 MG TAB PO SCH (10:00)
[2025-04-09] MEDS ORDERED: DICYCLOMINE HCL 20 MG PO SCH (10:00)
[2025-04-09] MEDS ORDERED: PATIENTS OWN MEDICATION (Atorvastatin Calcium (Lipitor) 1 TAB) PO SCH (10:00)
[2025-04-09 10:02] LABS: HDL Cholesterol 38 mg/dL (40-59)
--- NOTE | 2025-04-09 10:32 | DVH ---
Bilateral lower extremity venous duplex Clinical History: cp Comparison: US BILAT LOWER DVT on DOS: 04/20/24 Technique: Duplex Doppler evaluation of the deep venous systems of both lower extremities from the common femora l veins to the popliteal veins including color Doppler and spectral/pulsed waveform analysis was perf ormed. Findings: RIGHT SIDE: The common femoral vein demonstrates appropriate compressibility and waveform variability. There is compressibility/patency of the great saphenous vein at the proximal thigh. The femoral vein demonstrates appropriate compressibility and waveform variability. The deep femoral vein demonstrates appropriate compressibility and waveform variability. The popliteal vein demonstrates appropriate compressibility and waveform variability. There is normal compressibility at the tibioperoneal trunk. LEFT SIDE: The common femoral vein demonstrates appropriate compressibility and waveform variability. There is compressibility/patency of the great saphenous vein at the proximal thigh. The femoral vein demonstrates appropriate compressibility and waveform variability. The deep femoral vein demonstrates appropriate compressibility and waveform variability. The popliteal vein demonstrates appropriate compressibility and waveform variability. There is normal compressibility at the tibioperoneal trunk. Impression: No right or left femoropopliteal venous thrombosis.
[2025-04-09] MEDS: MAGNESIUM SULFATE 1GM/100ML 100 ML IV ONE (10:52)
[2025-04-09] MEDS: CLOPIDOGREL BISULFATE 75 MG TAB PO SCH (10:53)
[2025-04-09] MEDS: ASPirin-EC 81 mg tab PO SCH (10:53)
[2025-04-09] MEDS: RANOLAZINE ER 500 MG TAB PO SCH (10:55)
[2025-04-09] MEDS: DICYCLOMINE HCL 10 MG CAP PO SCH (10:55)
[2025-04-09] MEDS: hydroCHLOROthiazide 25 MG TAB GT SCH (10:55)
[2025-04-09] MEDS: amLODIPine BESYLATE 5 MG TAB PO SCH (10:56)
[2025-04-09] MEDS: Fenofibrate 48 MG PO SCH (11:12)
[2025-04-09] MEDS: Linaclotide Base (Linzess) 72 MCG PO SCH (11:12)
[2025-04-09] MEDS: SUCRALFATE 1 GM TAB PO SCH (13:26)
[2025-04-09] MEDS: GABAPENTIN 300 MG CAP PO SCH (14:45)
[2025-04-09] MEDS: [UNRECOGNIZED DRUG - OTHER] PO SCH (14:47)
[2025-04-09 15:19] VITALS: BP 142/61; PULSE 65; RESP 18; TEMP 97.9; O2SAT 93
[2025-04-09 17:29] LABS: Benzodiazephine Screen, Urine Neg (NEGATIVE)
[2025-04-09 18:08] LABS: Amphetamine Screen, Urine Neg (NEGATIVE); Barbiturate Scree,Urine Neg (NEGATIVE); Opiate Scree,Urine Neg (NEGATIVE); Phencyclidine Screen, Urine Neg (NEGATIVE)
[2025-04-09 18:09] LABS: Cannabinoid Screen, Urine Neg (NEGATIVE); Cocaine Screen, Urine Neg (NEGATIVE)
--- NOTE | 2025-04-09 18:21 | DVHSR ---
APPROVED REPORT EXAM: Two-dimensional and M-mode echocardiogram with Doppler and color Doppler. Blood Pressure: 146/87 mmHg INDICATION Chest Pain RISK FACTORS Height: 5'1", Weight: 129 DIMENSIONS LVDd4.0 (3.8-5.7cm)LA (2D)3.4 (1.9-4.0cm)Aortic Root2.8 (2.0-3.7cm) LVDs2.7 (2.5-4.0cm)LA (MM) (1.9-4.0cm)Aortic Cusp Exc1.1 (1.5-2.0cm) EF (%) 60.0 (55-70%)Rt. Atrium4.0 (1.9-4.0cm)Asc. Aorta cm IVSd1.0 (0.7-1.1cm)RV (D) (1.8-2.4cm) PWd0.8 (0.7-1.1cm) Mitral Valve MitralMitral Stenosis E wave0.85m/sMV Mean GR.mmHg A wave0.99m/sMV Peak GR.mmHg E/A ratio0.92D MVAcm2 DECEL [id number] 1/2 Timems Aortic Valve Aortic ValveAortic Stenosis V10.87m/Tatyana Mean GR.6mmHg V21.81m/Tatyana Peak GR.13mmHg LVOT Diameter1.9 (1.8-2.4cm)Doppler AVA1.36cm2 AI P 1/2 [id number] Pulmonic Valve V20.85m/s Tricuspid Valve TR Velocity2.60m/s [id number] Conclusion MILD LVH AND MILD LV DIASTOLIC DYSFUNCTION LV EF IS 65% AND IS NORMAL CALCIFIED AORTIC LEAFLETS WITH DECREASED EXCURSION MODERATE DEGREE AORTIC STENOSIS AORTIC VALVE AREA IS ONLY 1.36 CM SQUARE MODERATE DEGREE AORTIC REGURG NORMAL MV,TV AND PV NO EFFUSION NORMAL RV FUNCTION
[2025-04-09 20:00] VITALS: PULSE 60; PULSE 63; RESP 18; O2SAT 94
[2025-04-09 21:00] VITALS: BP 107/66; PULSE 63; RESP 18; TEMP 98.9; O2SAT 94
[2025-04-09] MEDS: ATORVASTATIN 20 MG TAB PO SCH (22:07)
[2025-04-10] VITALS (8 sets, daily range): BP systolic 99–133; BP diastolic 54–70; PULSE 61–77; RESP 16–19; TEMP 97.6–98.8; O2SAT 94–97
[2025-04-10] MEDS: ONDANSETRON HCL 4 MG/2 ML VIAL IV PRN (05:37)
[2025-04-10 07:07] LABS: Basophils # (auto) 0 10 ^3/uL (0-0.2); Basophils % (auto) 0.7 % (0.0-2.0); Eosinophils # (auto) 0.2 10 ^3/uL (0-0.8); Eosinophils % (auto) 5.4 % (0.0-7.0); Hematocrit 39.9 % (36.0-46.0); Hemoglobin 13.5 g/dL (12.2-16.2); Lymphocytes # (auto) 1.3 10 ^3/uL (0.4-5.4); Lymphocytes % (auto) 40.4 % (10.0-50.0); Mean Corpuscular Hemoglobin 33.4 pg (28.0-32.0); Mean Corpuscular Hgb Conc. 33.9 g/dL (32.0-36.0); Mean Corpuscular Volume 98.6 fL (80.0-100.0); Monocytes # (auto) 0.5 10 ^3/uL (0-1.3); Monocytes % (auto) 16.2 % (0.0-12.0); Neutrophils # (auto) 1.2 10 ^3/uL (1.6-8.6); Neutrophils % (auto) 37.3 % (37.0-80.0); Nucleated Red Blood Cells % 0.2 %; Platelet Count (auto) 220 10^3/uL (140-450); Red Blood Cells 4.04 10^6/uL (4.0-5.20); Red Cell Distribution Width 14.5 % (11.8-14.3); White Blood Cell 3.2 10^3/uL (4.4-10.8)
[2025-04-10 07:21] LABS: Anion Gap 7 (5-15); Carbon Dioxide 24 mmol/L (20-31); Potassium 4.3 mmol/L (3.5-5.1); Sodium 140 mmol/L (136-145)
[2025-04-10 07:26] LABS: Calcium 10.5 mg/dL (8.7-10.4); Chloride 109 mmol/L (98-107)
[2025-04-10 07:27] LABS: Blood Urea Nitrogen 13 mg/dL (9-23)
[2025-04-10 07:28] LABS: Glucose 107 mg/dL (74-106)
--- NOTE | 2025-04-10 12:29 | DVHPN2 ---
Subjective 70-year-old female with a history of coronary artery disease status post PTCA in the past recently about 6 months ago, hypertension, dyslipidemia came with a chest pain with shortness of breaths since yesterday She says she sees Dr. Moulton outside Changes from previous H/P or p: Changes Cardiovascular: Chest Pain Respiratory: Shortness of breath Gastrointestinal: Nausea, Vomiting Musculoskeletal: leg pain Objective Vitals Vital Signs Date Time Temp Pulse Resp B/P (MAP) Pulse Ox O2 Delivery O2 Flow Rate FiO2 04/10/25 09:52 108/70 04/10/25 09:00 98.4 76 16 96 98.4 04/10/25 08:00 Room Air* 0 21 Intake/Output Intake and Output 04/10/25 07:00 Intake Total 1070 ml Output Total 600 ml Balance 470 ml Intake Oral 1070 ml Output Urine Total 600 ml # Voids 2 General Appearance: Alert, Oriented X3, Cooperative Lungs: Clear to auscultation, Normal air movement Cardiovascular: Regular rate, Normal S1, Normal S2, No murmurs Abdomen: Normal bowel sounds, Soft, No tenderness Extremities: No edema Medications Current Medications Medications Dose Ordered Sig/Leela Route Start Time Stop Time Status Last Admin Dose Admin Morphine Sulfate 2 mg Q30MP PRN IV 04/09/25 08:15 Acetaminophen 650 mg Q6HP PRN PO 04/09/25 08:15 Nitroglycerin 0.4 mg Q5MINP PRN SL 04/09/25 08:15 Ondansetron HCl 4 mg Q4HP PRN IV 04/09/25 08:15 04/10/25 05:37 4 MG Nitroglycerin 0.4 mg Q5MINP PRN SL 04/09/25 08:15 Morphine Sulfate 2 mg Q30M PRN IV 04/09/25 08:15 Amlodipine Besylate 5 mg DAILY PO 04/09/25 10:00 04/10/25 09:52 5 MG Aspirin 81 mg DAILY PO 04/09/25 10:00 04/10/25 09:52 81 MG Clopidogrel Bisulfate 40 mg DAILY PO 04/09/25 10:00 04/10/25 09:53 40 MG Gabapentin 300 mg TID PO 04/09/25 14:00 04/10/25 05:29 300 MG Hydrochlorothiazide 12.5 mg DAILY GT 04/09/25 10:00 04/10/25 09:51 12.5 MG Methotrexate 10 mg QWEEKLY PO 04/09/25 08:15 Hold Montelukast Sodium 10 mg DAILY PO 04/09/25 10:00 04/09/25 10:00 10 MG Ranolazine 500 mg BID PO 04/09/25 10:00 04/10/25 09:53 500 MG Sucralfate 1 gm QID PO 04/09/25 12:00 04/09/25 22:07 1 GM Patient Own Medication 1 tab DAILY PO 04/09/25 10:00 UNV Patient Own Medication 30 mg TID PO 04/09/25 14:00 04/09/25 14:47 30 MG Patient Own Medication 20 mg BID PO 04/09/25 10:00 UNV Patient Own Medication 48 mg DAILY PO 04/09/25 10:00 04/09/25 11:12 48 MG Patient Own Medication 72 mcg DAILY PO 04/09/25 10:00 Atorvastatin Calcium 40 mg HS PO 04/09/25 22:00 04/09/25 22:07 40 MG Dicyclomine HCl 20 mg BID PO 04/09/25 10:00 04/09/25 22:07 20 MG Laboratory Results Laboratory Tests 04/10/25 06:47 Chemistry Test 04/10/25 06:47 Calcium Level 10.5 mg/dL (8.7-10.4) H Magnesium Level 2.0 mg/dL (1.6-2.6) Urinalysis Test 04/09/25 07:23 Urine Color Light-yellow (Yellow) Urine Clarity Clear (Clear) Urine pH 7.0 (5.0-9.0) Urine Specific [place] 1.010 (1.001-1.035) Urine Protein Negative (Negative) Urine Ketones Negative (Negative) Urine Blood Negative /uL (Negative) Urine Nitrite Negative (Negative) Urine Bilirubin Negative (Negative) Urine Urobilinogen Normal mg/dL (Negative) Urine Leukocyte Esterase Negative /uL (Negative) Urine RBC <1 /hpf (0 - 4) Urine Microscopic WBC 1 /HPF (0-5) Urine Squamous Epithelial Cells Few /hpf (<5) Urine Bacteria None seen /hpf (None Seen) Urine Glucose Normal mg/dL (Normal) Assessment/Plan Assessment/Plan Chest pain History of coronary artery disease and PTCA Hypertension Mixed hyperlipidemia History of lupus Plan Continue aspirin Lipitor Plavix Cardiology consult Echocardiogram Continue the home medications Full code Advance directives discussed for 18 minute Plan discussed with: Patient My Orders Orders - KORI VARGAS MD Procedure Category Date Status Time * Cardiology Consult CONS 04/10/25 Transmitted 10:39 Date of Service: April 10, 2025 Billing Provider: KORI VARGAS MD Common Visit Codes: [id number] INP/OBS CARE(HIGH) Secondary Visit Codes: [id number] CARE PLAN 30 MINUTES KORI VARGAS MD April 10, 2025 12:29
[2025-04-11] VITALS (8 sets, daily range): BP systolic 96–139; BP diastolic 59–79; PULSE 58–92; RESP 16–18; TEMP 97.9–98.5; O2SAT 92–98
[2025-04-11] MEDS ORDERED: CLOP75TA70 PO (09:07)
--- NOTE | 2025-04-11 13:31 | ECG ---
[facility] Test Date: 2025-04-09 Test Time: 06:43:47 Pat Name: KRISTIN CARSON Department: ER Room: 0294T B Gender: F Growth Hacker: DENISSE : 1955 Requested By: JEANMARIE DUENAS Order Number: [id number] Reading MD: Sekou Moulton Measurements Intervals [place] Rate: 54 P: -17 FL: 239 QRS: 57 QRSD: 90 T: 46 QT: 452 QTc: 429 Interpretive Statements Sinus rhythm Prolonged FL interval Electronically Signed On 04-13-2025 12:09:49 PDT by Sekou Moulton Please click the below link to view image of tracing.
--- NOTE | 2025-04-11 14:00 | DVHPN2 ---
Subjective She is still complaining of chest pain on and off Changes from previous H/P or p: Changes Cardiovascular: Chest Pain Respiratory: Shortness of breath Gastrointestinal: Nausea, Vomiting Musculoskeletal: leg pain Objective Vitals Vital Signs Date Time Temp Pulse Resp B/P (MAP) Pulse Ox O2 Delivery O2 Flow Rate FiO2 04/11/25 09:00 107/65 04/11/25 09:00 97.9 58 16 92 97.9 04/11/25 08:15 Room Air* 0 21 Intake/Output Intake and Output 04/11/25 07:00 Intake Total 1580 ml Balance 1580 ml Intake Oral 1580 ml # Voids 4 General Appearance: Alert, Oriented X3, Cooperative Lungs: Clear to auscultation, Normal air movement Cardiovascular: Regular rate, Normal S1, Normal S2, No murmurs Abdomen: Normal bowel sounds, Soft, No tenderness Extremities: No edema Medications Current Medications Medications Dose Ordered Sig/Leela Route Start Time Stop Time Status Last Admin Dose Admin Morphine Sulfate 2 mg Q30MP PRN IV 04/09/25 08:15 Acetaminophen 650 mg Q6HP PRN PO 04/09/25 08:15 Ondansetron HCl 4 mg Q4HP PRN IV 04/09/25 08:15 04/10/25 05:37 4 MG Nitroglycerin 0.4 mg Q5MINP PRN SL 04/09/25 08:15 Morphine Sulfate 2 mg Q30M PRN IV 04/09/25 08:15 Amlodipine Besylate 5 mg DAILY PO 04/09/25 10:00 04/11/25 08:59 5 MG Aspirin 81 mg DAILY PO 04/09/25 10:00 04/11/25 08:59 81 MG Gabapentin 300 mg TID PO 04/09/25 14:00 04/11/25 13:43 300 MG Methotrexate 10 mg QWEEKLY PO 04/09/25 08:15 Hold Montelukast Sodium 10 mg DAILY PO 04/09/25 10:00 04/11/25 09:00 10 MG Ranolazine 500 mg BID PO 04/09/25 10:00 04/11/25 09:01 500 MG Sucralfate 1 gm QID PO 04/09/25 12:00 04/11/25 11:39 1 GM Patient Own Medication 1 tab DAILY PO 04/09/25 10:00 UNV Patient Own Medication 30 mg TID PO 04/09/25 14:00 04/09/25 14:47 30 MG Patient Own Medication 20 mg BID PO 04/09/25 10:00 UNV Patient Own Medication 48 mg DAILY PO 04/09/25 10:00 04/11/25 09:01 48 MG Patient Own Medication 72 mcg DAILY PO 04/09/25 10:00 Atorvastatin Calcium 40 mg HS PO 04/09/25 22:00 04/10/25 21:19 40 MG Dicyclomine HCl 20 mg BID PO 04/09/25 10:00 04/11/25 08:59 20 MG Clopidogrel Bisulfate 75 mg DAILY PO 04/12/25 10:00 Hydrochlorothiazide 12.5 mg DAILY PO 04/12/25 10:00 Laboratory Results Laboratory Tests 04/10/25 06:47 Urinalysis Test 04/09/25 07:23 Urine Color Light-yellow (Yellow) Urine Clarity Clear (Clear) Urine pH 7.0 (5.0-9.0) Urine Specific [place] 1.010 (1.001-1.035) Urine Protein Negative (Negative) Urine Ketones Negative (Negative) Urine Blood Negative /uL (Negative) Urine Nitrite Negative (Negative) Urine Bilirubin Negative (Negative) Urine Urobilinogen Normal mg/dL (Negative) Urine Leukocyte Esterase Negative /uL (Negative) Urine RBC <1 /hpf (0 - 4) Urine Microscopic WBC 1 /HPF (0-5) Urine Squamous Epithelial Cells Few /hpf (<5) Urine Bacteria None seen /hpf (None Seen) Urine Glucose Normal mg/dL (Normal) Assessment/Plan Assessment/Plan Chest pain History of coronary artery disease and PTCA Hypertension Mixed hyperlipidemia History of lupus Plan Continue aspirin Lipitor Plavix Cardiology consult Echocardiogram Continue the home medications Full code Advance directives discussed for 18 minute 04/11/2025: Troponins are negative Cardiology consult is pending Echocardiogram was done showed mild diastolic dysfunction with an ejection fraction of 65% and calcified aortic valve with moderate aortic stenosis Plan discussed with: Patient My Orders Orders - KORI VARGAS MD Procedure Category Date Status Time Clopidogrel Bisulfate PHA 04/12/25 In Process (Plavix) 10:00 Hydrochlorothiazide PHA 04/12/25 In Process Tablet (Hydrochlorot 10:00 * Cardiology Consult CONS 04/11/25 Transmitted 13:02 Date of Service: April 11, 2025 Billing Provider: KORI VARGAS MD Common Visit Codes: [id number] INP/OBS CARE(HIGH) KORI VARGAS MD April 11, 2025 14:00
--- NOTE | 2025-04-11 15:24 | DVHINCON2 ---
Date Seen: April 11, 2025 Referring Physician MD Virgil Reason for Consultation Chest pain History of Present Illness This is a pleasant 70-year-old female who presented to the emergency room with a chief complaint of chest pain. Describes her chest pain as intermittent, non provoked, sharp in nature as "needles poking," associated with yawning, and radiating to her bilateral lower extremities. The patient complains of claudication with ambulation as well as ankle edema and knee pain. She underwent a 12 lead electrocardiogram revealing a normal sinus rhythm. Serial troponin levels are negative. Significant medical history includes coronary artery disease status post PTCA and stenting of the mid LAD x1 ROGE (01/2019) status post stenting of the LAD diagonal x1 ROGE (08/2024), systemic lupus erythematosus, Von Willebrand disease, gastritis, hypertension, dyslipidemia, and [id number] diabetes mellitus. Past Surgical History PTCA and stenting of the LAD diagonal x1 ROGE, 08/2024 PTCA and stenting of the mid LAD x1 ROGE, 01/2019 Laparoscopic cholecystectomy, 2013 Family History: Alcoholism G8 MOTHER Angina Arthritis G8 MOTHER Cardiovascular disease G8 FATHER Cerebrovascular accident (CVA) G8 FATHER Hypertension G8 MOTHER G8 FATHER 19 CHILD Allergies: Coded Allergies: Latex (Verified Allergy, Mild, 11/09/24) HIVES, ITCHING Home Meds Active Scripts Acetaminophen (Acetaminophen) 325 Mg Tab, 650 MG PO Q6HP PRN for 10 Days, #80 TAB Prov:BOOM MCBRIDE RESIDENT 08/16/24 Atorvastatin Calcium (Lipitor) 40 Mg Tab, 1 TAB PO DAILY, #30 TAB 5 Refills Prov:KORI VARGAS MD 11/06/23 Aspirin (Aspirin Low Dose) 81 Mg Tab, 81 MG PO DAILY for 100 Days, #100 TAB Prov:KORI VARGAS MD 11/06/23 Reported Medications Clopidogrel Bisulfate (CLOPIDOGREL) 75 Mg Tab, 75 MG PO DAILY for 30 Days, MG 04/11/25 Folic Acid (Folic Acid) 1 Mg Tab, 1 TAB PO DAILY 04/09/25 Cevimeline Hydrochloride Hemih (CEVIMELINE HCL) 30 Mg Cap, 30 MG OR TID for DRY MOUTH, CAP 11/09/24 Triamcinolone Acetonide (Triamcinolone Acetonide) 0.1 % Pst, 1 APPLIC TOP BIDP PRN for AFFECTED AREAS, APPLIC 11/09/24 Sucralfate (Sucralfate) 1 Gm Tab, 1 GM PO QID for GERD, GM 11/09/24 Montelukast Sodium (Singulair) 10 Mg Tab, 10 MG PO DAILY, TAB 11/09/24 Ranolazine (Ranolazine ER) 500 Mg Tab, 500 MG PO BID for CHEST PAIN, TAB 11/09/24 Ondansetron HCl (Ondansetron) 4 Mg Tab, 8 MG PO BIDP PRN for NAUSEA / VOMITING, TAB 11/09/24 Nitroglycerin (NTROSTAT SUBLINGUAL) 0.4 Mg Sl, 0.4 MG SL PRN for CHEST PAIN, TAB *MAY REPEAT EVERY 5 MINUTES X 3 TOTAL IF NO RELIEF, INITIATE ANALGESIC THERAPY. NOTIFY PHYSICIAN *Do not crush. 11/09/24 Naproxen Sodium (Anaprox Ds) 550 Mg Tab, 220 MG PO DAILY, TAB 11/09/24 Metformin Hydrochloride (Metformin Hcl) 500 Mg Tab, 500 MG PO IBID for DIABETES for 30 Days, MG 11/09/24 Nitrofurantoin Monohydrate Mac (Macrobid) 100 Mg Cap, 100 MG PO Q12HR for UTI, CAP 11/09/24 Linaclotide Base (Linzess) 72 Mcg Cap, 72 MCG PO DAILY for CONSTIPATION, CAP 11/09/24 Hctz (Hydrochlorothiazide) 25 Mg Tab, 12.5 MG GT for EDEMA/BP, TAB 11/09/24 Gentamicin Sulfate (Gentamicin Sulfate) 0.3 % Sonya, 1 DROP OP Q4HR, DROP 11/09/24 Fluticasone Propionate (Nasal) (Flonase Allergy Relief) 50 Mcg/Act Spr, 50 MCG NA DAILYP PRN for ALLERGIES, SPRAY 11/09/24 Fenofibrate (FENOFIBRATE) 48 Mg Tab, 48 MG PO DAILY for HIGH CHOLESTEROL, TAB 11/09/24 Dicyclomine HCl (Dicyclomine Hydrochloride) 20 Mg Tab, 20 MG PO BID, TAB 11/09/24 Docusate Sodium (Colace) 100 Mg Cap, 1 CAP PO BIDP PRN for FOR CONSTIPATION, #30 CAP 11/09/24 Amlodipine Besylate (Amlodipine Besylate) 5 Mg Tab, 5 MG PO DAILY for HTN, MG 11/09/24 Prednisone (Prednisone) 10 Mg Tab, 5 MG PO EOD, MG 5mg po every other day 09/17/22 Gabapentin (Gabapentin) 300 Mg Cap, 300 MG PO TID, CAP 09/17/22 Methotrexate (Methotrexate) 2.5 Mg Tab, 10 MG PO QWEEKLY for arthritis, TAB 09/17/22 Clopidogrel Bisulfate (Plavix) 75 Mg Tab, 40 MG PO DAILY, TAB 02/08/19 Omeprazole (Omeprazole) 20 Mg Cap, 40 MG PO DAILYPRN, CAP 01/06/19 Current Medications Current Medications Medications (Trade) Dose Ordered Sig/Leela Route PRN Reason Start Time Stop Time Status Last Admin Clopidogrel Bisulfate (Plavix) 75 mg DAILY PO 04/12/25 10:00 Hydrochlorothiazide (hydroCHLOROthiazide TABLET) 12.5 mg DAILY PO 04/12/25 10:00 Vital Signs Vital Signs Date Time Temp Pulse Resp B/P (MAP) Pulse Ox O2 Delivery O2 Flow Rate FiO2 04/11/25 13:00 97.9 77 18 139/79 (99) 98 97.9 04/11/25 08:15 Room Air* 0 21 Physical Exam General Appearance: Cooperative. Well developed. Well nourished. In no acute distress Head Exam: Normal inspection Neck Exam: Normal inspection. Non-tender. Normal alignment Pulmonary/Respiratory: Chest non-tender. Clear bilateral breath sounds Cardiovascular/Chest: Regular rate and rhythm. S1, S2. Systolic murmur III/. No JVD. Peripheral Pulses: 2+ Radial (R). 2+ Radial (L). 2+ Pedal (R). 2+ Pedal (L) Abdominal Exam: Normal bowel sounds. Soft. Nontender. No hepatospenomegaly. No masses Ankle Exam: Negative ankle edema Lower extremities: Negative lower extremity edema Neuro/Mental Status: A&O x4. Coherent Thoughts/Psych: Normal thought pattern. Appropriate mood and affect. Good judgement and insight Appearance: In no acute distress Skin Exam: Normal inspection. Normal color. Warm. Dry Labs/Diagnostic Data Labs Test 04/10/25 06:47 04/09/25 10:18 04/09/25 07:23 04/09/25 07:00 Range/Units White Blood Count 3.2 L 4.4-10.8 10^3/uL Red Blood Count 4.04 4.0-5.20 10^6/uL Hemoglobin 13.5 12.2-16.2 g/dL Hematocrit 39.9 36.0-46.0 % Mean Corpuscular Volume 98.6 80.0-100.0 fL Mean Corpuscular Hemoglobin 33.4 H 28.0-32.0 pg Mean Corpuscular Hemoglobin Concent 33.9 32.0-36.0 g/dL Red Cell Distribution Width 14.5 H 11.8-14.3 % Platelet Count 220 140-450 10^3/uL Mean Platelet Volume 8.0 6.9-10.8 fL Neutrophils (%) (Auto) 37.3 37.0-80.0 % Lymphocytes (%) (Auto) 40.4 10.0-50.0 % Monocytes (%) (Auto) 16.2 H 0.0-12.0 % Eosinophils (%) (Auto) 5.4 0.0-7.0 % Basophils (%) (Auto) 0.7 0.0-2.0 % Neutrophils # (Auto) 1.2 L 1.6-8.6 10 ^3/uL Lymphocytes # (Auto) 1.3 0.4-5.4 10 ^3/uL Monocytes # (Auto) 0.5 0-1.3 10 ^3/uL Eosinophils # (Auto) 0.2 0-0.8 10 ^3/uL Basophils # (Auto) 0 0-0.2 10 ^3/uL Nucleated Red Blood Cells 0.2 % Sodium Level 140 # 136-145 mmol/L Potassium Level 4.3 3.5-5.1 mmol/L Chloride Level 109 H 98-107 mmol/L Carbon Dioxide Level 24 20-31 mmol/L Anion Gap 7 5-15 Blood Urea Nitrogen 13 9-23 mg/dL Creatinine 0.93 0.550-1.02 mg/dL Glomerular Filtration Rate Calc 67 >90 mL/min BUN/Creatinine Ratio 14.0 10.0-20.0 Serum Glucose 107 H 74-106 mg/dL Calcium Level 10.5 H 8.7-10.4 mg/dL Magnesium Level 2.0 1.6-2.6 mg/dL Troponin I High Sensitivity 6 </=34 ng/L Urine Color Light-yellow Yellow Urine Clarity Clear Clear Urine pH 7.0 5.0-9.0 Urine Specific [place] 1.010 1.001-1.035 Urine Protein Negative Negative Urine Ketones Negative Negative Urine Blood Negative Negative /uL Urine Nitrite Negative Negative Urine Bilirubin Negative Negative Urine Urobilinogen Normal Negative mg/dL Urine Leukocyte Esterase Negative Negative /uL Urine RBC <1 0 - 4 /hpf Urine Microscopic WBC 1 0-5 /HPF Urine Squamous Epithelial Cells Few <5 /hpf Urine Bacteria None seen None Seen /hpf Urine Glucose Normal Normal mg/dL Urine Opiates Screen Neg NEGATIVE Urine Fentanyl Screen Neg NEGATIVE Urine Barbiturates Screen Neg NEGATIVE Urine Phencyclidine Screen Neg NEGATIVE Urine Amphetamines Screen Neg NEGATIVE Urine Benzodiazepines Screen Neg NEGATIVE Urine Cocaine Screen Neg NEGATIVE Urine Cannabinoids Screen Neg NEGATIVE Hemoglobin A1c 5.6 <5.7 % A1C Triglycerides Level 140 < 150 mg/dL Cholesterol Level 144 < 200 mg/dL LDL Cholesterol 87 < 100 mg/dL HDL Cholesterol 38 L 40-59 mg/dL Thyroid Stimulating Hormone (TSH) 2.42 0.55-4.78 uIU/mL Assessment Coronary artery disease status post PTCAs x2 ROGE (on DAPT) Claudication rule out peripheral arterial disease Aortic valve stenosis/regurgitation, moderate degree Systemic lupus erythematosus Von Willebrand's disease Cij-sredwil-lvoaboqwd diabetes mellitus Hypertensive urgency Dyslipidemia Plan/Recommendation (Dr. Moulton) The patient underwent a transthoracic echocardiogram revealing an LVEF of 65% with a moderate degree of aortic stenosis and moderate degree of aortic regurgitation. The patient also underwent a recent coronary angiogram revealing no significant In-Stent restenosis and stable coronary vasculature with Dr. Moulton on 11/10/2024. Patient symptoms could be secondary to microvascular disease. Continue aggressive medical therapy including dual antiplatelet therapy, statins, blood pressure control, Ranexa, and risk factor modifications. Scheduled for a bilateral lower extremity arterial duplex to rule out peripheral vascular disease. Rest of recommendations per clinical course. Thank you for allowing us to participate in this patient's care. Please call if you have any questions or concerns. This medical document was created using an electronic medical record system with voice recognition software and computerized dictation system. Although this document has been carefully reviewed, there might still be some phonetic and typographical errors. Occasional wrong-word or ``sound-alike substitutions may have occurred due to the inherent limitations of voice recognition software. These areas are purely typographical due to imperfections of the software programs and do not reflect any compromise in the patient's medical care. Please read the chart carefully and recognize, using context, where these substitutions have occurred. Plan discussed with: Patient, Other NYHA Physical activity limitations: NA Date of Service: April 11, 2025 Billing Provider: NICHOL COONEY Cardiology Common Codes: 66334-PTBSPRS INP/OBS CARE (High) NICHOL COONEY April 11, 2025 15:24
--- NOTE | 2025-04-11 15:58 | DVH ---
BILATERAL Lower Extremity Arterial Duplex Date: 04/11/2025 03:30 PM Clinical History: Claudication Comparison: None Technique: Duplex Doppler evaluation including color Doppler and spectral/pulsed waveform analysis of the lower extremity arteries was performed. Finding: RIGHT: Peak systolic velocities are as follows: [employer] 82 cm/s Deep femoral 67 cm/s SFA proximal 85 cm/s SFA mid-portion 81 cm/s SFA distal 73 cm/s Popliteal 63 cm/s Posterior tibial 79 cm/s Dorsalis pedis 126 cm/s The waveforms are triphasic with diastolic flow. 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 IMPRESSION: Anterior tibial arteries were not imaged limiting evaluation of the dorsalis pedis artery velocities bilaterally for peak systolic velocity ratios. Otherwise, no hemodynamically significant stenosis inv olving the bilateral lower extremity arteries based on peak systolic velocities. REFERENCE VALUES, [facility] ([facility]) vascular Imaging Lab Criteria: Peak systolic velocity ranges (in cm/sec) are as follows: <150 cm/s - <20 % stenosis 150-200 cm/s - 20-49% stenosis 200-300 cm/s - 50-75% stenosis >300 cm/s -> 75% stenosis
[2025-04-12 01:00] VITALS: BP 115/68; PULSE 61; RESP 16; O2SAT 98
[2025-04-12 05:00] VITALS: BP_SYST 109; BP_SYST 163; BP_DIAS 62; BP_DIAS 91; PULSE 53; PULSE 64; RESP 18; TEMP 98.1; O2SAT 94
[2025-04-12 08:15] VITALS: PULSE 65
[2025-04-12] MEDS: CLOPIDOGREL BISULFATE 75 MG TAB PO SCH (08:28)
[2025-04-12] MEDS: hydroCHLOROthiazide 25 MG TAB PO SCH (08:29)
[2025-04-12 09:00] VITALS: BP 109/61; PULSE 84; RESP 18; TEMP 98.2; O2SAT 95
--- NOTE | 2025-04-12 09:16 | DVHPN2 ---
Consult Progress Note Date Seen: April 12, 2025 Subjective Review of Systems: CVS:Abnormal, RESPIRATORY:Normal, NEURO:Normal Other Systems: C/o chest pain, sharp in nature Objective vital signs Vital Sign Date Time Temp Pulse Resp B/P (MAP) Pulse Ox O2 Delivery O2 Flow Rate FiO2 04/12/25 08:29 109/61 04/12/25 08:15 Room Air* 0 21 04/12/25 05:00 98.1 64 18 94 98.1 Total Intake and Output 04/11/25 04/11/25 04/12/25 15:00 23:00 07:00 Intake Total 958 ml 500 ml Balance 958 ml 500 ml medications Current Medications Medications Dose Ordered Sig/Leela Route Start Time Stop Time Status Last Admin Dose Admin Morphine Sulfate 2 mg Q30MP PRN IV 04/09/25 08:15 Acetaminophen 650 mg Q6HP PRN PO 04/09/25 08:15 Ondansetron HCl 4 mg Q4HP PRN IV 04/09/25 08:15 04/10/25 05:37 4 MG Nitroglycerin 0.4 mg Q5MINP PRN SL 04/09/25 08:15 Morphine Sulfate 2 mg Q30M PRN IV 04/09/25 08:15 Amlodipine Besylate 5 mg DAILY PO 04/09/25 10:00 04/12/25 08:28 5 MG Aspirin 81 mg DAILY PO 04/09/25 10:00 04/12/25 08:28 81 MG Gabapentin 300 mg TID PO 04/09/25 14:00 04/12/25 05:48 300 MG Methotrexate 10 mg QWEEKLY PO 04/09/25 08:15 Hold Montelukast Sodium 10 mg DAILY PO 04/09/25 10:00 04/12/25 08:29 10 MG Ranolazine 500 mg BID PO 04/09/25 10:00 04/12/25 08:28 500 MG Sucralfate 1 gm QID PO 04/09/25 12:00 04/12/25 05:48 1 GM Patient Own Medication 1 tab DAILY PO 04/09/25 10:00 UNV Patient Own Medication 30 mg TID PO 04/09/25 14:00 04/09/25 14:47 30 MG Patient Own Medication 20 mg BID PO 04/09/25 10:00 UNV Patient Own Medication 48 mg DAILY PO 04/09/25 10:00 04/12/25 08:29 48 MG Patient Own Medication 72 mcg DAILY PO 04/09/25 10:00 Atorvastatin Calcium 40 mg HS PO 04/09/25 22:00 04/11/25 21:32 40 MG Dicyclomine HCl 20 mg BID PO 04/09/25 10:00 04/12/25 08:28 20 MG Clopidogrel Bisulfate 75 mg DAILY PO 04/12/25 10:00 04/12/25 08:28 75 MG Hydrochlorothiazide 12.5 mg DAILY PO 04/12/25 10:00 04/12/25 08:29 12.5 MG Examination: LUNGS:Normal, CVS:Normal (NSR), NEURO:Normal laboratory and microbiology Laboratory Tests 04/10/25 06:47 Test 04/10/25 06:47 Range/Units Serum Glucose 107 H 74-106 mg/dL Problem List/Assessment/Plan Problem List/Assessment/Plan Coronary artery disease status post PTCAs x2 ROGE (on DAPT) Aortic valve stenosis/regurgitation, moderate degree Peripheral arterial disease ruled out Systemic lupus erythematosus Von Willebrand's disease [id number] diabetes mellitus Hypertensive urgency Dyslipidemia Plan/Recommendation (Dr. Moulton) The patient underwent a transthoracic echocardiogram revealing an LVEF of 65% with a moderate degree of aortic stenosis and moderate degree of aortic regurgitation. The patient also underwent a recent coronary angiogram revealing no significant in-stent restenosis and stable coronary vasculature with Dr. Moulton on 11/10/2024. Patient symptoms could be secondary to microvascular disease vs exacerbation of autoimmune disease. Continue aggressive medical therapy including dual antiplatelet therapy, statins, Ranexa, and risk factor modifications. Blood pressure control with isosorbide mononitrate, discontinue HCTZ and amlodipine. Add beta-izzy if able to tolerate. Follow-up with Dr. Moulton on 05/06/2025 at 1030. There is no further cardiac work-up indicated at this time. Kindly call with any questions or concerns. Thank you for allowing us to participate in this patient's care. This medical document was created using an electronic medical record system with voice recognition software and computerized dictation system. Although this document has been carefully reviewed, there might still be some phonetic and typographical errors. Occasional wrong-word or ``sound-alike substitutions may have occurred due to the inherent limitations of voice recognition software. These areas are purely typographical due to imperfections of the software programs and do not reflect any compromise in the patient's medical care. Please read the chart carefully and recognize, using context, where these substitutions have occurred. Plan discussed with: Patient, Other Date of Service: April 12, 2025 Billing Provider: NICHOL COONEY Cardiology Common Codes: [id number] HOSP CARE(High NICHOL COONEY April 12, 2025 09:16
--- NOTE | 2025-04-12 11:53 | DVHDS2 ---
Discharge Summary Date of Admission April 09, 2025 at 08:15 Date of Discharge: April 12, 2025 Labs/Diagnostic Data: Laboratory Results Test 04/10/25 06:47 04/09/25 10:18 04/09/25 07:23 04/09/25 07:00 White Blood Count 3.2 10^3/uL (4.4-10.8) Red Blood Count 4.04 10^6/uL (4.0-5.20) Hemoglobin 13.5 g/dL (12.2-16.2) Hematocrit 39.9 % (36.0-46.0) Mean Corpuscular Volume 98.6 fL (80.0-100.0) Mean Corpuscular Hemoglobin 33.4 pg (28.0-32.0) Mean Corpuscular Hemoglobin Concent 33.9 g/dL (32.0-36.0) Red Cell Distribution Width 14.5 % (11.8-14.3) Platelet Count 220 10^3/uL (140-450) Mean Platelet Volume 8.0 fL (6.9-10.8) Neutrophils (%) (Auto) 37.3 % (37.0-80.0) Lymphocytes (%) (Auto) 40.4 % (10.0-50.0) Monocytes (%) (Auto) 16.2 % (0.0-12.0) Eosinophils (%) (Auto) 5.4 % (0.0-7.0) Basophils (%) (Auto) 0.7 % (0.0-2.0) Neutrophils # (Auto) 1.2 10 ^3/uL (1.6-8.6) Lymphocytes # (Auto) 1.3 10 ^3/uL (0.4-5.4) Monocytes # (Auto) 0.5 10 ^3/uL (0-1.3) Eosinophils # (Auto) 0.2 10 ^3/uL (0-0.8) Basophils # (Auto) 0 10 ^3/uL (0-0.2) Nucleated Red Blood Cells 0.2 % Sodium Level 140 mmol/L (136-145) Potassium Level 4.3 mmol/L (3.5-5.1) Chloride Level 109 mmol/L (98-107) Carbon Dioxide Level 24 mmol/L (20-31) Anion Gap 7 (5-15) Blood Urea Nitrogen 13 mg/dL (9-23) Creatinine 0.93 mg/dL (0.550-1.02) Glomerular Filtration Rate Calc 67 mL/min (>90) BUN/Creatinine Ratio 14.0 (10.0-20.0) Serum Glucose 107 mg/dL (74-106) Calcium Level 10.5 mg/dL (8.7-10.4) Magnesium Level 2.0 mg/dL (1.6-2.6) Troponin I High Sensitivity 6 ng/L (</=34) Urine Color Light-yellow (Yellow) Urine Clarity Clear (Clear) Urine pH 7.0 (5.0-9.0) Urine Specific [place] 1.010 (1.001-1.035) Urine Protein Negative (Negative) Urine Ketones Negative (Negative) Urine Blood Negative /uL (Negative) Urine Nitrite Negative (Negative) Urine Bilirubin Negative (Negative) Urine Urobilinogen Normal mg/dL (Negative) Urine Leukocyte Esterase Negative /uL (Negative) Urine RBC <1 /hpf (0 - 4) Urine Microscopic WBC 1 /HPF (0-5) Urine Squamous Epithelial Cells Few /hpf (<5) Urine Bacteria None seen /hpf (None Seen) Urine Glucose Normal mg/dL (Normal) Urine Opiates Screen Neg (NEGATIVE) Urine Fentanyl Screen Neg (NEGATIVE) Urine Barbiturates Screen Neg (NEGATIVE) Urine Phencyclidine Screen Neg (NEGATIVE) Urine Amphetamines Screen Neg (NEGATIVE) Urine Benzodiazepines Screen Neg (NEGATIVE) Urine Cocaine Screen Neg (NEGATIVE) Urine Cannabinoids Screen Neg (NEGATIVE) Hemoglobin A1c 5.6 % A1C (<5.7) Triglycerides Level 140 mg/dL (< 150) Cholesterol Level 144 mg/dL (< 200) LDL Cholesterol 87 mg/dL (< 100) HDL Cholesterol 38 mg/dL (40-59) Thyroid Stimulating Hormone (TSH) 2.42 uIU/mL (0.55-4.78) Other Laboratory Tests 04/10/25 06:47 Brief Hx & Hospital Course: Final diagnoses: Chest pain History of coronary artery disease and PTCA Hypertension Mixed hyperlipidemia History of lupus Aortic valve stenosis/regurgitation, moderate degree Peripheral arterial disease ruled out Systemic lupus erythematosus Von Willebrand's disease Nok-uozplvj-zbjaakjdd diabetes mellitus Hypertensive urgency Dyslipidemia 70-year-old female who was admitted for chest pain. She has a history of CAD with prior stents Her troponins were negative Cardiology saw the patient recommended to continue medical management Repeated echocardiogram showed mild diastolic dysfunction and moderate aortic stenosis Overall she is stable, asymptomatic now Continue same home medications Follow up with Dr. Moulton as scheduled Condition at Discharge: Stable Final Diagnosis/Problems List Chest pain History of coronary artery disease and PTCA Hypertension Mixed hyperlipidemia History of lupus Discharge Disposition: Home SNF Discharge Will this Physician continue t: No Discharge Instruct/Medications Diet: Cardiac 2g Na,low cholest Activity: No Restrictions, As Tolerated Follow Up/Referral: PCP as soon as possible Dr. Moulton as scheduled on 05/06/2025 Medications: Same home medications Discharge Statement: "Patient was advised to return to the ER or call 911 if any headaches, dizziness, shortness of breath, chest pain, abdominal pain, bleeding, fevers, or worsening of medical condition. Patient was counseled about treatment plan, medications, possible side effects, patientverbalized understanding. All questions were answered to the best of my ability. This discharge took greater then 30 minutes in planning, reviewing documentation, counseling the patient, and discussing with other team members." ASSESSMENT ASSESSMENT Assessment Chest pain History of coronary artery disease and PTCA Hypertension Mixed hyperlipidemia History of lupus Date of Service: April 12, 2025 Billing Provider: KORI VARGAS MD Common Visit Codes: 18934-RTV/OBS DISCH DAY >30min KORI VARGAS MD April 12, 2025 11:53
[2025-04-12 12:27] VITALS: BP 109/61
[2025-04-13] MEDS ORDERED: ISOSORBIDE MONONITRATE ER 60 MG TAB PO SCH (10:00)
== END 2025-04-12 14:20 | disposition home or self-care (01) | DRG 206 ==
LOC: ER 06:35 → OVERFLOW 08:15 → TELE-WESTW 09:13
PROVIDERS: ADMIT Internal Medicine Geriatric Medicine; ATTEND Internal Medicine Geriatric Medicine
DX: M94.0 Chondrocostal junction syndrome [Tietze] (principal); D68.00 Von Willebrand disease, unspecified; I35.2 Nonrheumatic aortic (valve) stenosis with insufficiency; I16.0 Hypertensive urgency; I25.10 Atherosclerotic heart disease of native coronary artery without angina pectoris; M32.9 Systemic lupus erythematosus, unspecified; E78.2 Mixed hyperlipidemia; Z91.040 Latex allergy status; Z79.82 Long term (current) use of aspirin; Z79.84 Long term (current) use of oral hypoglycemic drugs; Z79.899 Other long term (current) drug therapy; Z90.710 Acquired absence of both cervix and uterus; Z90.49 Acquired absence of other specified parts of digestive tract; Z98.51 Tubal ligation status; Z95.5 Presence of coronary angioplasty implant and graft; Z82.3 Family history of stroke; Z82.49 Family history of ischemic heart disease and other diseases of the circulatory system; E11.9 Type 2 diabetes mellitus without complications
CPT/HCPCS: 36415; 71045; 80048; 80061; 80307; 81001; 83036; 83735; 84443; 84484; 85025; 93005; 93306; 93925; 93970; 96365; 96375; 99291; 99292; G0378; J2405

== ENCOUNTER → 2025-04-14 | Outpatient (CLI) | payer MEDICARE, OTHER, MEDICAID ==
[~2025-04-14] MED LIST changes: +CLOP75TA70 PO; +FOLI-119 PO; -NAPR5TAB4 PO; -NITR-87 PO
[2025-04-14 09:33] LABS: Cholesterol 130 mg/dL (< 200); HDL Cholesterol 31 mg/dL (40-59); LDL Cholesterol 68 mg/dL (< 100); Triglycerides 199 mg/dL (< 150)
== END | disposition home or self-care (01) ==
LOC: LAB 06:38
PROVIDERS: ATTEND Internal Medicine
DX: E78.5 Hyperlipidemia, unspecified (principal); N18.2 Chronic kidney disease, stage 2 (mild); R42 Dizziness and giddiness; Z79.899 Other long term (current) drug therapy
CPT/HCPCS: 36415; 80061; 82306; 82607

== ENCOUNTER 2025-05-03 20:45 | Inpatient (IN) | payer MEDICARE, OTHER, MEDICAID ==
[~2025-05-03] VITALS: Ht 154.9 cm; Wt 61.0 kg
--- NOTE | 2025-05-03 21:41 | ED.PDOC ---
SOB-HPI HPI Comments 70-year-old female with PMHx HTN, CAD status post PTCA, HLD, DM, Asthma, Lupus presents with a chief complaint of cough, SOB, and chest congestion x 1 week. Patient reports that she went to urgent care and was prescribed an inhaler, however this has not helped with her symptoms. Patient is also on prednisone for her lupus and denies any relief. Patient denies fever, chest pain, edema, nausea, vomiting or diaphoresis. Time Seen by MD: 21:35 Primary Care Provider: Elfego Reviewed notes: Medications, Allergies Information Source: Patient Mode of Arrival: Ambulatory Severity: Moderate Timing: Days Duration: Since onset PE Risk Factors: None History of: Asthma, CHF Prehospital treatment: None Modifying Factors: Inhaler Associated Signs and Symptoms: Cough, Nasal Congestion If cough with SOB: Productive, White Past Medical History PAST MEDICAL HISTORY: Asthma, CAD, DM, High Lipids, HTN Past Medical History (Other): SLE Surgical History: BTL, Cholecystectomy, Hysterectomy, Tonsillectomy FERMENTER WINE History: No Pertinent FERMENTER WINE History Family History Family History: Reviewed,noncontributory to illness, Unknown, Family hx of heart richard Family History (Other): sjogren's syndrome. Social History Smoker: Non-Smoker Alcohol: Denies ETOH Use Drugs: Denies Drug Use Lives In: Home Constitutional: denies: chills, diaphoresis, fatigue, fever, malaise, sweats, weakness, others EENTM: reports: nose congestion; denies: blurred vision, double vision, ear bleeding, ear discharge, ear drainage, ear pain, ear ringing, eye pain, eye redness, hearing loss, mouth pain, mouth swelling, nasal discharge, nose bleeding, nose pain, photophobia, tearing, throat pain, throat swelling, voice changes, others Respiratory: reports: cough, shortness of breath; denies: hemoptysis, orthopnea, SOB at rest, SOB with excertion, stridor, wheezing, others Cardiovascular: denies: chest pain, dizzy spells, diaphoresis, Dyspnea on exertion, edema, irregular heart beat, left arm pain, lightheadedness, palpitations, PND, syncope, others Gastrointestinal: denies: abdomen distended, abdominal pain, blood streaked bowels, constipated, diarrhea, dysphagia, difficulty swallowing, hematemesis, melena, nausea, poor appetite, poor fluid intake, rectal bleeding, rectal pain, vomiting, others Genitourinary: denies: abnormal vagina bleeding, burning, dyspareunia, dysuria, flank pain, frequency, hematuria, incontinence, pain, , vagina discharge, urgency, others Neurological: denies: dizziness, fainting, headache, left sided numbness, left sided weakness, numbness, paresthesia, pre-existing deficit, right sided numbness, right sided weakness, seizure, speech problems, tingling, tremors, weakness, others Musculoskeletal: denies: back pain, gout, joint pain, joint swelling, muscle pain, muscle stiffness, neck pain, others Integumetry: denies: bruises, change in color, change in hair/nails, dryness, laceration, lesions, lumps, rash, wounds, others Allergic/Immunocompromised: denies: Difficulty Healing, Frequent Infections, Hives, Itching, others Hematologic/Lymphatic: denies: anemia, blood clots, easy bleeding, easy bruising, swollen glands, others Endocrine: denies: excessive hunger, excessive sweating, excessive thirst, excessive urination, flushing, intolerance to cold, intolerance to heat, unexplained weight gain, unexplained weight loss, others Psychiatric: denies: anxiety, bipolar disorder, depression, hopeless, panic disorder, schizophrenia, sleepless, suicidal, others All Other Systems: Reviewed and Negative Physical Exam General Appearance: Mild Distress HEENT: Other (Pupils and face symmetric. Moist mucous membranes.) Neck: Full Range of Motion, Normal Inspection Respiratory: Crackles, Decreased Breath Sounds, No Accessory Muscle Use, No Respiratory Distress, Rhonchi Cardiovascular: No Edema, No JVD, Regular Rate/Rhythm Breast Exam: Deferred Gastrointestinal: Non Tender, Soft Genitalia: Deferred Pelvic: Deferred Rectal: Deferred Extremities: Normal inspection, Normal range of motion, Non-tender, No pedal edema Neurologic: Alert (Oriented x4), Normal Affect, Normal Mood, Other (Ambulatory) Cerebellar Function: NOT DONE Reflexes: NOT DONE Skin: Dry, Normal Color, Warm Lymphatic: NOT DONE Was a procedure done? Was a procedure done?: No Differential Dx Differential Diagnosis: Asthma, Bronchitis, CHF, COPD, Myocardial infarction, Pneumonia, Pulmonary Embolism, Respiratory Distress, URI X-Ray, Labs, Meds, VS Vital Signs Date Time Temp Pulse Resp B/P (MAP) Pulse Ox O2 Delivery O2 Flow Rate FiO2 05/03/25 22:24 77 18 96 Room Air* 0 21 05/03/25 22:24 77 18 136/71 (92) 96 05/03/25 22:02 16 96 Room Air* 0 05/03/25 21:12 98.3 72 14 145/68 (93) 98 98.3 Lab Test 05/03/25 22:46 05/03/25 21:50 05/03/25 21:37 Range/Units Troponin I High Sensitivity Pending 4 </=34 ng/L White Blood Count 5.3 4.4-10.8 10^3/uL Red Blood Count 3.83 L 4.0-5.20 10^6/uL Hemoglobin 12.7 12.2-16.2 g/dL Hematocrit 37.4 36.0-46.0 % Mean Corpuscular Volume 97.6 80.0-100.0 fL Mean Corpuscular Hemoglobin 33.1 H 28.0-32.0 pg Mean Corpuscular Hemoglobin Concent 33.9 32.0-36.0 g/dL Red Cell Distribution Width 14.1 11.8-14.3 % Platelet Count 256 140-450 10^3/uL Mean Platelet Volume 7.5 6.9-10.8 fL Neutrophils (%) (Auto) 48.1 37.0-80.0 % Lymphocytes (%) (Auto) 41.0 10.0-50.0 % Monocytes (%) (Auto) 7.7 0.0-12.0 % Eosinophils (%) (Auto) 2.8 0.0-7.0 % Basophils (%) (Auto) 0.4 0.0-2.0 % Neutrophils # (Auto) 2.5 1.6-8.6 10 ^3/uL Lymphocytes # (Auto) 2.2 0.4-5.4 10 ^3/uL Monocytes # (Auto) 0.4 0-1.3 10 ^3/uL Eosinophils # (Auto) 0.1 0-0.8 10 ^3/uL Basophils # (Auto) 0 0-0.2 10 ^3/uL Nucleated Red Blood Cells 0.1 % Sodium Level 144 136-145 mmol/L Potassium Level 3.3 L 3.5-5.1 mmol/L Chloride Level 109 H 98-107 mmol/L Carbon Dioxide Level 26 20-31 mmol/L Anion Gap 9 5-15 Blood Urea Nitrogen 18 9-23 mg/dL Creatinine 1.09 H 0.550-1.02 mg/dL Glomerular Filtration Rate Calc 55 >90 mL/min BUN/Creatinine Ratio 16.5 10.0-20.0 Serum Glucose 115 H 74-106 mg/dL Lactic Acid Level 2.1 *H 0.4-2.0 mmol/L Calcium Level 10.3 8.7-10.4 mg/dL B-Type Natriuretic Peptide 21.67 0-100 pg/mL Influenza Type A Antigen Positive Negative Influenza Type B Antigen Positive Negative SARS-CoV-2 Antigen (Rapid) Negative NEGATIVE Current Medications Medications (Trade) Dose Ordered Sig/Leela Route Start Time Stop Time Status Last Admin Albuterol (Ventolin Medneb) 5 mg ONCE ONCE NEB 05/03/25 21:45 05/03/25 21:46 DC 05/03/25 21:58 Ipratropium [place] (Atrovent Medneb) 0.5 mg ONCE ONCE NEB 05/03/25 21:45 05/03/25 21:46 DC 05/03/25 21:58 Methylprednisolone Sodium Succinate (Solu Medrol) 125 mg ONCE ONCE IV 05/03/25 21:45 05/03/25 21:46 DC 05/03/25 22:15 PROCEDURE(s): CXRP - CHEST PORTABLE REASON: sob ORDER NUMBER(s): [id number], ACCESSION NUMBER(s): [id number] CHEST RADIOGRAPH Indication: sob Technique: Single frontal view of the chest was obtained Comparison: XY CHEST XRAY 1 VIEW on DOS: 04/09/25, XY CHEST XRAY 1 VIEW on DOS: 08/15/24, XY CHEST PORTABLE on DOS: 04/20/24 FINDINGS: Lines and Tubes: None Lungs: Clear Pleura: No effusion. No pneumothorax. Cardiomediastinal contours: Unremarkable Bones: Unremarkable IMPRESSION: Clear lungs. X-Ray, Labs, Meds, VS Comment 70-year-old female with PMHx HTN, CAD status post PTCA, HLD, DM, Asthma, Lupus presents with a chief complaint of cough, SOB, and chest congestion despite using an inhaler at home for the past week Vitals remarkable for BP 145/68 Exam remarkable for scattered crackles and rhonchi on lung exam Rhythm strip independently interpreted by me: Sinus rhythm, rate 72, no ectopy. Chest x-ray unremarkable CBC unremarkable, metabolic panel remarkable for potassium 3.3, lactate 2.1, BNP and troponin negative, influenza a and B positive, COVID negative Patient treated with the following in the ED: 2 L 0.9 normal saline IV bolus, Rocephin 1 g IV, Zithromax 500 mg IV, Tamiflu 75 mg p.o., albuterol 5 mg/Atrovent 0.5 mg nebulized, Solu-Medrol 125 mg IV On re-evaluation, patient states symptoms have somewhat improved. Vitals are stable including oxygen saturation which is normal on room air. Patient did not improve with outpatient treatment, so plan is to admit the patient for respiratory support as needed and IV antibiotics to cover possible atypical bacterial respiratory infection and antivirals to cover influenza a and B. Time of 1ST Reevaluation: 22:05 Reevaluation 1ST: Unchanged Time of 2ND Reevaluation: 23:14 Reevaluation 2ND: Improved Patient Education/Counseling: Diagnosis, Treatment, Need For Follow Up Family Education/Counseling: No Family Present Sepsis Sepsis Reasesment Focused Exam Orders: Laboratory Tests 05/03/25 21:50: Lactic Acid Level 2.1 Recent Procedure: No On Antibiotic Therapy: No Respiratory Rate >20: No Heart Rate >90: No Temp<36 C (96.8 F) or >38.3 C: No SBP <90 or MAP <65 mmHG: No New Acute Mental Status Change: No Is the patient on CPAP, BIPAP,: No IV fluid given: Yes Departure 1 Departure Time of Disposition: 23:15 Impression: Primary Impression: Asthma exacerbation Qualified Codes: J45.901 - Unspecified asthma with (acute) exacerbation Additional Impressions: Influenza A Influenza B Disposition: ADMITTED INPATIENT Admit to: Tele Condition: Guarded Critical Care Note Critical Care Time?: No Stability Stability form required: No Heart Score Heart Score: Heart Score Response (Comments) Value History N/A 0 EKG N/A 0 Age N/A 0 Risk Factors N/A 0 Troponin N/A 0 Total 0 I personally scribed for NILA WHITT MD ([email or web address]) on 05/03/25 at 21:41. Electronically submitted by Raulito Dickson ([email or web address]). NILA WHITT MD May 03, 2025 21:41
[2025-05-03] MEDS: ALBUTEROL SULF 2.5 MG/0.5ML(0.5%) NEB SOLN NEB ONE (21:58)
[2025-05-03] MEDS: IPRATROPIUM BROM 0.5 MG/2.5ML INH SOL NEB ONE (21:58)
[2025-05-03 22:15] LABS: COVID19 ANTIGEN SOFIA FIA NEGATIVE (NEGATIVE)
[2025-05-03] MEDS: methylPREDNISolone SOD SUCC 125 MG/2 ML VL IV ONE (22:15)
--- NOTE | 2025-05-03 22:16 | DVH ---
CHEST RADIOGRAPH Indication: sob Technique: Single frontal view of the chest was obtained Comparison: XY CHEST XRAY 1 VIEW on DOS: 04/09/25, XY CHEST XRAY 1 VIEW on DOS: 08/15/24, XY CHEST PORT ABLE on DOS: 04/20/24 FINDINGS: Lines and Tubes: None Lungs: Clear Pleura: No effusion. No pneumothorax. Cardiomediastinal contours: Unremarkable Bones: Unremarkable IMPRESSION: Clear lungs.
[2025-05-03 22:17] LABS: Rapid Influenza A Positive (Negative); Rapid Influenza B Positive (Negative)
[2025-05-03 22:17] LABS: Basophils # (auto) 0 10 ^3/uL (0-0.2); Basophils % (auto) 0.4 % (0.0-2.0); Eosinophils # (auto) 0.1 10 ^3/uL (0-0.8); Eosinophils % (auto) 2.8 % (0.0-7.0); Hematocrit 37.4 % (36.0-46.0); Hemoglobin 12.7 g/dL (12.2-16.2); Lymphocytes # (auto) 2.2 10 ^3/uL (0.4-5.4); Mean Corpuscular Hemoglobin 33.1 pg (28.0-32.0); Mean Corpuscular Hgb Conc. 33.9 g/dL (32.0-36.0); Mean Corpuscular Volume 97.6 fL (80.0-100.0); Monocytes # (auto) 0.4 10 ^3/uL (0-1.3); Monocytes % (auto) 7.7 % (0.0-12.0); Neutrophils # (auto) 2.5 10 ^3/uL (1.6-8.6); Neutrophils % (auto) 48.1 % (37.0-80.0); Nucleated Red Blood Cells % 0.1 %; Platelet Count (auto) 256 10^3/uL (140-450); Red Blood Cells 3.83 10^6/uL (4.0-5.20); Red Cell Distribution Width 14.1 % (11.8-14.3); White Blood Cell 5.3 10^3/uL (4.4-10.8)
[2025-05-03 22:24] VITALS: PULSE 77; RESP 18; O2SAT 96
[2025-05-03 22:29] LABS: Sodium 144 mmol/L (136-145)
[2025-05-03 22:30] LABS: Anion Gap 9 (5-15); Calcium 10.3 mg/dL (8.7-10.4); Carbon Dioxide 26 mmol/L (20-31)
[2025-05-03 22:34] LABS: Chloride 109 mmol/L (98-107); Potassium 3.3 mmol/L (3.5-5.1)
[2025-05-03 22:35] LABS: BUN/Creatinine Ratio 16.5 (10.0-20.0); Blood Urea Nitrogen 18 mg/dL (9-23); Glucose 115 mg/dL (74-106)
[2025-05-03 22:40] LABS: Lactic Acid w/Reflex 2.1 mmol/L (0.4-2.0)
[2025-05-04] VITALS (14 sets, daily range): BP systolic 90–144; BP diastolic 58–85; PULSE 67–82; RESP 15–20; TEMP 97.9–99.6; O2SAT 94–99
[2025-05-04] MEDS ORDERED: DEXTROSE (50%) 50ML SYRG IV PRN
[2025-05-04 00:12] LABS: LDL Cholesterol 92 mg/dL (< 100)
[2025-05-04 00:13] LABS: Cholesterol 164 mg/dL (< 200)
[2025-05-04 00:16] LABS: HDL Cholesterol 33 mg/dL (40-59); Triglycerides 349 mg/dL (< 150)
[2025-05-04] MEDS: SODIUM CHLORIDE 0.9% 2,000 ML IV ONE (00:18)
[2025-05-04] MEDS: cefTRIAXone 1GM/50ML D5W 50 ML IV ONE (00:18)
--- NOTE | 2025-05-04 00:19 | DVHHPRES ---
History of Present Illness Resident Creating Document: PEGGY RODRIGUEZ RESIDENT History of Present Illness This is a 70-year-old female with past medical history of hypertension coronary artery disease status post PTCA with two stents placement one six years ago and last one on October of 2024 (currently compliant on aspirin and clopidogrel), dyslipidemia, asthma, SLE, hyperglycemia induced by chronic steroid use. The patient presented to the ED with chief complaint of shortness of breaths associated with cough and burning sensation in the chest. The patient states that all symptoms started five days ago when she started feeling shortness of breaths with initially dry cough that then progressed to a productive cough with sputum production yellowish in color. The patient states that symptoms worsened recently prompting her visit to the ED. the patient denied fever/chills, chest pain, abdominal tenderness, headache or any other associated symptoms. Upon admission, initial CBC was grossly unremarkable and BNP showed hypokalemia of 3.3. Lactic acid was slightly elevated at 2.1 and patient tested positive for both influenza A and B. patient was started on oseltamivir 75 mg b.i.d., azithromycin po, albuterol and ipratropium med nebs and the patient was admitted for further assessment and management. Past medical history: Primary hypertension, coronary artery disease status post two stent placement, dyslipidemia, asthma, SLE, Sjogren's syndrome. Home medications: Clopidogrel 75 mg daily, aspirin 81 mg daily, methotrexate two 5 mg tablet x6 weekly, amlodipine 5 mg daily, prednisone 5 mg b.i.d., clotrimazole 10 mg t.i.d., atorvastatin 40 mg daily, fenofibrate 48 mg daily, metformin 500 mg b.i.d. Social history: Denies alcohol, drugs or smoking. Cardiovascular: CAD (With two stent placement), HTN, hyperipidemia Pulmonary: Asthma Rheumatologic: Other (Systemic lupus erythematosus and Sjogren syndrome) Family History: None Smoke: No ALCOHOL: none Drugs: None Lives: with Family Domestic Violence: Neg Review of Systems Constitutional: No: Fever, Chills, Sweats, Weakness, Malaise, Other Eyes: No: Pain, Vision change, Conjunctivae inflammation, Eyelid inflammation, Other, Redness ENT: No: Ear pain, Ear discharge, Nose pain, Nose discharge, Nose congestion, Mouth pain, Mouth swelling, Throat pain, Throat swelling, Other Respiratory: Cough, Shortness of breath; No: Dry, SOB with excertion, Wheezing, Hemoptysis, Pleuritic Pain, Sputum, Wheezing, Other Cardiovascular: No: Chest Pain, Palpitations, Orthopnea, Paroxysmal Noc. Dyspnea, Edema, Lt Headedness, Other Gastrointestinal: No: Nausea, Vomiting, Abdominal Pain, Diarrhea, Constipation, Melena, Hematochezia, Other Genitourinary: No Dysuria, No Frequency, No Incontinence, No Hematuria, No Retention, No Other Musculoskeletal: No: other, neck pain, shoulder pain, arm pain, back pain, hand pain, leg pain, foot pain Skin: No: Rash, Lesions, Jaundice, Bruising, Other Neurological: No: Weakness, Numbness, Incoordination, Change in speech, Confusion, Seizures, Other Allergies: Coded Allergies: Latex (Verified Allergy, Mild, 11/09/24) HIVES, ITCHING Medications Current Medications Medications Dose Ordered Sig/Leela Route Start Time Stop Time Status Last Admin Dose Admin Acetaminophen 650 mg Q6HP PRN PO 05/03/25 23:45 UNV Enoxaparin Sodium 40 mg DAILY SC 05/04/25 10:00 UNV Exam Vital Signs Vital Signs Date Time Temp Pulse Resp B/P (MAP) Pulse Ox O2 Delivery O2 Flow Rate FiO2 05/03/25 22:24 77 18 96 Room Air* 0 21 05/03/25 22:24 136/71 (92) 05/03/25 21:12 98.3 98.3 General Appearance: Alert, Oriented X3, Cooperative, No acute distress HEENT: Atraumatic, PERRLA, EOMI, Mucous membr. moist/pink Respiratory: Clear to auscultation, Normal air movement Cardiovascular: Regular rate, Normal S1, Normal S2, Other (Holosystolic murmur) Abdominal: Normal bowel sounds, Soft, No tenderness, No hepatospenomegaly, No masses Extremities: No clubbing, No cyanosis, No edema, Normal pulses, No tenderness/swelling Skin: No rashes, No breakdown, No significant lesion Neuro: Normal gait, Normal speech, Strength at 5/5 X4 ext, Normal tone, Sensation intact, Cranial nerves 3-12 NL, Reflexes 2+ Psych/Mental Status: Mental status NL, Mood NL Labs/Xrays Labs Test 05/03/25 23:37 05/03/25 22:46 05/03/25 21:50 05/03/25 21:37 Range/Units Troponin I High Sensitivity 4 </=34 ng/L White Blood Count 5.3 4.4-10.8 10^3/uL Red Blood Count 3.83 L 4.0-5.20 10^6/uL Hemoglobin 12.7 12.2-16.2 g/dL Hematocrit 37.4 36.0-46.0 % Mean Corpuscular Volume 97.6 80.0-100.0 fL Mean Corpuscular Hemoglobin 33.1 H 28.0-32.0 pg Mean Corpuscular Hemoglobin Concent 33.9 32.0-36.0 g/dL Red Cell Distribution Width 14.1 11.8-14.3 % Platelet Count 256 140-450 10^3/uL Mean Platelet Volume 7.5 6.9-10.8 fL Neutrophils (%) (Auto) 48.1 37.0-80.0 % Lymphocytes (%) (Auto) 41.0 10.0-50.0 % Monocytes (%) (Auto) 7.7 0.0-12.0 % Eosinophils (%) (Auto) 2.8 0.0-7.0 % Basophils (%) (Auto) 0.4 0.0-2.0 % Neutrophils # (Auto) 2.5 1.6-8.6 10 ^3/uL Lymphocytes # (Auto) 2.2 0.4-5.4 10 ^3/uL Monocytes # (Auto) 0.4 0-1.3 10 ^3/uL Eosinophils # (Auto) 0.1 0-0.8 10 ^3/uL Basophils # (Auto) 0 0-0.2 10 ^3/uL Nucleated Red Blood Cells 0.1 % Sodium Level 144 136-145 mmol/L Potassium Level 3.3 L 3.5-5.1 mmol/L Chloride Level 109 H 98-107 mmol/L Carbon Dioxide Level 26 20-31 mmol/L Anion Gap 9 5-15 Blood Urea Nitrogen 18 9-23 mg/dL Creatinine 1.09 H 0.550-1.02 mg/dL Glomerular Filtration Rate Calc 55 >90 mL/min BUN/Creatinine Ratio 16.5 10.0-20.0 Serum Glucose 115 H 74-106 mg/dL Calcium Level 10.3 8.7-10.4 mg/dL B-Type Natriuretic Peptide 21.67 0-100 pg/mL Influenza Type A Antigen Positive Negative Influenza Type B Antigen Positive Negative SARS-CoV-2 Antigen (Rapid) Negative NEGATIVE Assessment/Plan Assessment/Plan Assessment/plan Acute hypoxic respiratory failure likely due to influenza A and B Viral pneumonia due to influenza Primary hypertension Dyslipidemia Systemic lupus erythematosus Showing syndrome GERD History of Coronary artery disease status post two stents placed (1st 6 years ago and last on oct 2024) Plan -initial chest x-ray was grossly clear with no evidence of consolidations -start oseltamivir 75 mg b.i.d. for five days -start p.o. azithromycin 500 mg initially and then 250 mg daily -albuterol and ipratropium med nebs PRN -start pantoprazole 40 mg daily -restart clopidogrel 75 mg daily and aspirin 81 mg daily -restart amlodipine 5 mg daily -restart atorvastatin 40 mg daily -restart prednisone 5 mg b.i.d. for SLE -monitor blood sugars due to chronic steroid use Goals discussed with the patient at bedside for 35min, FULL CODE Plan discussed with Dr. Rosas Plan discussed with: Patient My Orders Orders - PEGGY RODRIGUEZ Procedure Category Date Status Time Admit ADMIT 05/03/25 Transmitted 23:43 Code Status CODE 05/03/25 Transmitted 23:43 Vital Signs JEREMY 05/03/25 In Process 23:43 Review Orders With JEREMY 05/03/25 In Process Adm. 23:43 Encourage Activity As JEREMY 05/03/25 In Process Tolerate 23:43 Consistent DIET 05/04/25 Transmitted Carb(Ccho)Diabetes Breakfast Acetaminophen Tablet PHA 05/03/25 Logged (Tylenol Tablet) 23:45 Notify Of Changes JEREMY 05/03/25 In Process From Base 23:43 Advance Directive JEREMY 05/03/25 In Process 23:43 Basic Metabolic Panel LAB 05/04/25 Verified 04:00 Complete Blood Count LAB 05/04/25 Verified 04:00 Lipid Panel LAB 05/03/25 In Process 23:43 Patient Condition ORDERS 05/03/25 Transmitted 23:43 Allergies JEREMY 05/03/25 In Process 23:43 Drug Screen LAB 05/03/25 Logged 23:43 Enoxaparin Sodium PHA 05/04/25 Logged (Lovenox) 10:00 Oseltamivir 75mg PHA 05/04/25 Logged Capsule (Tamiflu 75mg 10:00 Azithromycin Tablet PHA 05/04/25 Logged (Zithromax Tablet) 10:00 Albuterol Medneb PHA 05/04/25 Logged (Ventolin Medneb) 08:00 Ipratropium Medneb PHA 05/04/25 Logged (Atrovent Medneb) 08:00 Pantoprazole Tablet PHA 05/04/25 Logged (Protonix Tablet) 00:00 Aspirin Tablet PHA 05/04/25 Logged 10:00 Clopidogrel Bisulfate PHA 05/04/25 Logged (Plavix) 10:00 Prednisone Tablet PHA 05/04/25 Logged 10:00 Amlodipine Tablet PHA 05/04/25 Logged (Norvasc Tablet) 10:00 Atorvastatin (Lipitor) PHA 05/04/25 Logged 10:00 Glucose Blood PHA 05/04/25 Logged (Accu-Chek Comfort 07:00 Insulin R (Human) PHA 05/04/25 Logged (Insulin R) 07:00 Dextrose 50% Syringe PHA 05/04/25 Logged 00:00 Date of Service: May 03, 2025 Billing Provider: BITA ROSAS MD Common Visit Codes: [id number] INP/OBS CARE (HIGH) Secondary Visit Codes: [id number] CARE PLAN 30 MINUTES PEGGY RODRIGUEZ RESIDENT May 04, 2025 00:19
[2025-05-04] MEDS ORDERED: ALBUTEROL SULF 2.5 MG/0.5ML(0.5%) NEB SOLN NEB PRN (01:30)
[2025-05-04] MEDS ORDERED: IPRATROPIUM BROM 0.5 MG/2.5ML INH SOL NEB PRN (01:30)
[2025-05-04] MEDS: PANTOPRAZOLE 40 MG TAB PO ONE (01:45)
[2025-05-04] MEDS: AZITHROMYCIN 500MG/ 250ML 250 ML IV ONE (01:45)
[2025-05-04] MEDS: OSELTAMIVIR 75 MG CAP PO ONE (01:46)
[2025-05-04] MEDS: POTASSIUM EFFERVESENT TAB 25 MEQ PO ONE (01:46)
[2025-05-04] MEDS ORDERED: ATOR40TA52 (02:08)
[2025-05-04] MEDS ORDERED: METH2.5T62 (02:08)
[2025-05-04] MEDS ORDERED: PRE5T PO (02:39)
[2025-05-04 03:35] LABS: Urine Bacteria None Seen /hpf (None Seen)
[2025-05-04 04:06] LABS: Urine Blood Negative /uL (Negative); Urine Clarity Clear (Clear); Urine Color Colorless (Yellow); Urine Protein, UAD Negative (Negative); Urine Specific Gravity 1.006 (1.001-1.035); Urine Squamous Epithelial Cell FEW /hpf (<5); Urine Urobilinogen Normal (Negative); Urine WBC 1 /HPF (0-5)
[2025-05-04 04:50] LABS: Amphetamine Screen, Urine Neg (NEGATIVE); Barbiturate Scree,Urine Neg (NEGATIVE); Benzodiazephine Screen, Urine Neg (NEGATIVE); Cannabinoid Screen, Urine Neg (NEGATIVE); Cocaine Screen, Urine Neg (NEGATIVE); Opiate Scree,Urine Neg (NEGATIVE); Phencyclidine Screen, Urine Neg (NEGATIVE)
[2025-05-04] MEDS: InsuLIN REG 1unit/0.01ml Soln (100units/ml) SC SCH (06:25)
[2025-05-04] MEDS: ACCU-CHEK COMFORT CURVE STRIP VI SCH (06:25)
[2025-05-04 07:04] LABS: Basophils # (auto) 0 10 ^3/uL (0-0.2); Basophils % (auto) 0.1 % (0.0-2.0); Eosinophils # (auto) 0 10 ^3/uL (0-0.8); Hematocrit 38.4 % (36.0-46.0); Hemoglobin 13.1 g/dL (12.2-16.2); Lymphocytes # (auto) 0.6 10 ^3/uL (0.4-5.4); Lymphocytes % (auto) 8.7 % (10.0-50.0); Mean Corpuscular Hemoglobin 33.6 pg (28.0-32.0); Mean Corpuscular Hgb Conc. 34.2 g/dL (32.0-36.0); Mean Corpuscular Volume 98.3 fL (80.0-100.0); Monocytes # (auto) 0 10 ^3/uL (0-1.3); Monocytes % (auto) 0.4 % (0.0-12.0); Neutrophils # (auto) 6.5 10 ^3/uL (1.6-8.6); Neutrophils % (auto) 90.8 % (37.0-80.0); Platelet Count (auto) 250 10^3/uL (140-450); Red Cell Distribution Width 14.2 % (11.8-14.3); White Blood Cell 7.1 10^3/uL (4.4-10.8)
[2025-05-04 07:06] LABS: Alanine Aminotransferase 18 U/L (7-40); Alkaline Phosphatase 74 U/L (46-116); Anion Gap 14 (5-15); BUN/Creatinine Ratio 18.1 (10.0-20.0); Blood Urea Nitrogen 15 mg/dL (9-23); Calcium 9.1 mg/dL (8.7-10.4); Carbon Dioxide 21 mmol/L (20-31); Potassium 3.8 mmol/L (3.5-5.1); Sodium 145 mmol/L (136-145); Total Protein 7.3 g/dL (5.7-8.2)
[2025-05-04 07:07] LABS: Bilirubin, Total 0.7 mg/dL (0.2-1.0)
[2025-05-04 07:09] LABS: Aspartate Aminotransferase 11 U/L (13-40); Chloride 110 mmol/L (98-107); Glucose 161 mg/dL (74-106)
[2025-05-04 07:15] LABS: Albumin 4.7 g/dL (3.2-4.8)
[2025-05-04] MEDS ORDERED: ALBUTEROL SULF 2.5 MG/0.5ML(0.5%) NEB SOLN NEB ONE (08:00)
[2025-05-04] MEDS ORDERED: IPRATROPIUM BROM 0.5 MG/2.5ML INH SOL NEB ONE (08:00)
[2025-05-04] MEDS ORDERED: OSELTAMIVIR 75 MG CAP PO SCH (10:00)
[2025-05-04] MEDS: ENOXAPARIN SOD 40 MG/0.4 ML SYRINGE SC SCH (10:15)
[2025-05-04] MEDS: ATORVASTATIN 20 MG TAB PO SCH (10:16)
[2025-05-04] MEDS: AZITHROMYCIN 250 MG TAB PO SCH (10:17)
[2025-05-04] MEDS: predniSONE 5 MG TAB PO SCH (10:17)
[2025-05-04] MEDS: CLOPIDOGREL BISULFATE 75 MG TAB PO SCH (10:17)
[2025-05-04] MEDS: ASPirin 81 mg TAB PO SCH (10:18)
[2025-05-04] MEDS: OSELTAMIVIR 30 MG CAP PO SCH (10:18)
[2025-05-04] MEDS: amLODIPine BESYLATE 5 MG TAB PO SCH (10:20)
--- NOTE | 2025-05-04 17:07 | DVHPNRES ---
Progress Note Date Seen: May 04, 2025 Resident Creating Document: MARIA GRACE RESIDENT Medical Necessity Reason Pt with a Central, PICC or Fol: No Subjective Review of Systems 70-year-old female with past medical history of hypertension coronary artery disease status post PTCA with two stents placement one six years ago and last one on October of 2024 (currently compliant on aspirin and clopidogrel), dyslipidemia, asthma, SLE, hyperglycemia induced by chronic steroid use. The patient presented to the ED with chief complaint of shortness of breaths associated with cough and burning sensation in the chest. The patient states that all symptoms started five days ago when she started feeling shortness of breaths with initially dry cough that then progressed to a productive cough with sputum production yellowish in color. The patient states that symptoms worsened recently prompting her visit to the ED. the patient denied fever/chills, chest pain, abdominal tenderness, headache or any other associated symptoms. CONSTITUTIONAL: Denies weight loss, fever and chills. HEENT: Denies changes in vision and hearing. RESPIRATORY: Admits shortness of breath and cough CV: Denies palpitations and chest pain. GI: Denies abdominal pain, nausea, vomiting and diarrhea. : Denies dysuria and urinary frequency. MSK: Denies myalgia and joint pain. SKIN: Denies rash and pruritus. NEUROLOGICAL: Denies headache Objective vital signs Vital Sign Date Time Temp Pulse Resp B/P (MAP) Pulse Ox O2 Delivery O2 Flow Rate FiO2 05/04/25 13:00 99.6 67 18 112/64 (80) 96 99.6 05/04/25 10:00 Room Air* 0 21 medications Current Medications Medications Dose Ordered Sig/Leela Route Start Time Stop Time Status Last Admin Dose Admin Acetaminophen 650 mg Q6HP PRN PO 05/03/25 23:45 Enoxaparin Sodium 40 mg DAILY SC 05/04/25 10:00 05/04/25 10:15 40 MG Oseltamivir Phosphate 75 mg BID PO 05/04/25 10:00 05/09/25 09:59 UNV Azithromycin 250 mg DAILY PO 05/04/25 10:00 05/04/25 10:17 250 MG Aspirin 81 mg DAILY PO 05/04/25 10:00 05/04/25 10:18 81 MG Clopidogrel Bisulfate 75 mg DAILY PO 05/04/25 10:00 05/04/25 10:17 75 MG Prednisone 5 mg BID PO 05/04/25 10:00 05/04/25 10:17 5 MG Amlodipine Besylate 5 mg DAILY PO 05/04/25 10:00 05/04/25 10:20 5 MG Atorvastatin Calcium 40 mg DAILY PO 05/04/25 10:00 05/04/25 10:16 40 MG Diagnostic Test (Pha) 1 strip ACHS 05/04/25 07:00 05/04/25 11:30 1 STRIP Insulin Human Regular ACHS SC 05/04/25 07:00 05/04/25 06:25 3 UNITS Dextrose 50 ml UD PRN IV 05/04/25 00:00 Oseltamivir Phosphate 30 mg BID PO 05/04/25 10:00 05/09/25 09:59 05/04/25 10:18 30 MG Albuterol 2.5 mg Q6HPRN PRN NEB 05/04/25 01:30 Ipratropium [place] 0.5 mg Q6HPRN PRN NEB 05/04/25 01:30 Examination GENERAL: Not in acute distress. HEENT: EOMI, Moist mucous membranes. No scleral icterus. No cervical lymphadenopathy. LUNGS: Clear to auscultation bilaterally. No accessory muscle use. CARDIOVASCULAR: Regular rate and rhythm. No murmur. No JVD. ABDOMEN: Soft, nontender and nondistended. No palpable masses. EXTREMITIES: No edema. Nontender. SKIN: No rashes or lesions. Warm. NEUROLOGIC: Alert and oriented X3 laboratory and microbiology Laboratory Tests 05/04/25 06:21 Test 05/04/25 06:21 Range/Units Serum Glucose 161 H 74-106 mg/dL Microbiology Date/Time Source Procedure Growth Status 05/04/25 01:44 Nose MRSA Screen - Final Methicillin Resistant S.aureus Complete Problem List/Assessment/Plan Problem List/Assessment/Plan # Acute hypoxic respiratory failure likely due to pneumonia and influenza A and B # Viral pneumonia due to influenza # possible Gram-positive/Gram-negative bacterial pneumonia - -initial chest x-ray was grossly clear with no evidence of consolidations -start oseltamivir 75 mg b.i.d. for five days -start I/V azithromycin 500 mg daily - start Rocephin 1 g daily as patient has risk for developing bacterial pneumonia - continue breathing treatment # Primary hypertension # History of Coronary artery disease status post two stents placed (1st 6 years ago and last on oct 2024) - continue amlodipine 5 mg daily - monitor BP - continue clopidogrel 75 mg daily and aspirin 81 mg daily # Dyslipidemia - atorvastatin 40 mg daily # Lupus erythematosus # Sjogren's syndrome - continue steroids -monitor blood sugars due to chronic steroid use # GERD - continue Protonix DVT prophylaxis: Patient is ambulatory no need of DVT prophylaxis GI prophylaxis: pantoprazole 40 mg daily Goals discussed with the patient at bedside for 35min, FULL CODE Plan discussed with Dr. HEDRICK Plan discussed with: Patient MARIA GRACE RESIDENT May 04, 2025 17:07
[2025-05-04] MEDS: ACETAMINOPHEN 325 MG TAB PO PRN (22:03)
[2025-05-05] VITALS (11 sets, daily range): BP systolic 103–139; BP diastolic 58–75; PULSE 58–106; RESP 14–18; TEMP 97.9–98.5; O2SAT 96–99
[2025-05-05 06:03] LABS: Basophils # (auto) 0 10 ^3/uL (0-0.2); Basophils % (auto) 0.1 % (0.0-2.0); Eosinophils # (auto) 0 10 ^3/uL (0-0.8); Hematocrit 35.7 % (36.0-46.0); Hemoglobin 12.1 g/dL (12.2-16.2); Lymphocytes # (auto) 1.1 10 ^3/uL (0.4-5.4); Lymphocytes % (auto) 7.1 % (10.0-50.0); Mean Corpuscular Hemoglobin 32.9 pg (28.0-32.0); Mean Corpuscular Hgb Conc. 33.8 g/dL (32.0-36.0); Mean Corpuscular Volume 97.2 fL (80.0-100.0); Monocytes # (auto) 0.5 10 ^3/uL (0-1.3); Monocytes % (auto) 3.5 % (0.0-12.0); Neutrophils # (auto) 13.8 10 ^3/uL (1.6-8.6); Neutrophils % (auto) 89.3 % (37.0-80.0); Platelet Count (auto) 235 10^3/uL (140-450); Red Blood Cells 3.67 10^6/uL (4.0-5.20); Red Cell Distribution Width 14.3 % (11.8-14.3); White Blood Cell 15.4 10^3/uL (4.4-10.8)
[2025-05-05 06:17] LABS: Calcium 10.1 mg/dL (8.7-10.4); Potassium 4.1 mmol/L (3.5-5.1); Sodium 144 mmol/L (136-145)
[2025-05-05 06:18] LABS: Anion Gap 9 (5-15); Carbon Dioxide 22 mmol/L (20-31)
[2025-05-05 06:23] LABS: BUN/Creatinine Ratio 26.9 (10.0-20.0); Blood Urea Nitrogen 21 mg/dL (9-23); Chloride 113 mmol/L (98-107)
[2025-05-05 06:26] LABS: Glucose 136 mg/dL (74-106)
[2025-05-05] MEDS: MUPIROCIN 2% OINT 15gm or 22gm FOR MRSA NARES EACHNOSTRI SCH (10:00)
[2025-05-05] MEDS: AZITHROMYCIN 500MG/ 250ML 250 ML IV SCH (10:50)
[2025-05-05] MEDS: cefTRIAXone 1GM/50ML D5W 50 ML IV ONE (12:12)
--- NOTE | 2025-05-05 17:19 | DVHPNRES ---
Progress Note Date Seen: May 05, 2025 Resident Creating Document: MARIA GRACE RESIDENT Medical Necessity Reason Pt with a Central, PICC or Fol: No Subjective Review of Systems Patient seen and examined at bedside, patient is feeling better Possible discharge tomorrow Objective vital signs Vital Sign Date Time Temp Pulse Resp B/P (MAP) Pulse Ox O2 Delivery O2 Flow Rate FiO2 05/05/25 16:44 97.9 70 16 122/70 (87) 99 97.9 05/05/25 10:00 Room Air* 0 21 Total Intake and Output 05/04/25 05/04/25 05/05/25 15:00 23:00 07:00 Intake Total 250 ml 400 ml Balance 250 ml 400 ml medications Current Medications Medications Dose Ordered Sig/Leela Route Start Time Stop Time Status Last Admin Dose Admin Acetaminophen 650 mg Q6HP PRN PO 05/03/25 23:45 05/04/25 22:03 650 MG Enoxaparin Sodium 40 mg DAILY SC 05/04/25 10:00 05/05/25 10:46 40 MG Oseltamivir Phosphate 75 mg BID PO 05/04/25 10:00 05/09/25 09:59 UNV Aspirin 81 mg DAILY PO 05/04/25 10:00 05/05/25 10:47 81 MG Clopidogrel Bisulfate 75 mg DAILY PO 05/04/25 10:00 05/05/25 10:49 75 MG Prednisone 5 mg BID PO 05/04/25 10:00 05/05/25 10:49 5 MG Amlodipine Besylate 5 mg DAILY PO 05/04/25 10:00 05/05/25 10:49 5 MG Atorvastatin Calcium 40 mg DAILY PO 05/04/25 10:00 05/05/25 10:47 40 MG Diagnostic Test (Pha) 1 strip ACHS 05/04/25 07:00 05/05/25 11:30 1 STRIP Insulin Human Regular ACHS SC 05/04/25 07:00 05/04/25 22:15 2 UNITS Dextrose 50 ml UD PRN IV 05/04/25 00:00 Oseltamivir Phosphate 30 mg BID PO 05/04/25 10:00 05/09/25 09:59 05/05/25 10:47 30 MG Albuterol 2.5 mg Q6HPRN PRN NEB 05/04/25 01:30 Ipratropium [place] 0.5 mg Q6HPRN PRN NEB 05/04/25 01:30 Pantoprazole Sodium 40 mg DAILY@0600 PO 05/06/25 06:00 Azithromycin 250 ml @ 125 mls/hr DAILY IV 05/05/25 10:00 05/05/25 10:50 125 MLS/HR Mupirocin 1 applic BID EACHNOSTRI 05/05/25 10:00 05/10/25 09:59 05/05/25 10:00 1 APPLIC Ceftriaxone Sodium 50 ml @ 100 mls/hr DAILY@09 IV 05/06/25 09:00 Examination GENERAL: Not in acute distress. HEENT: EOMI, Moist mucous membranes. No scleral icterus. No cervical lymphadenopathy. LUNGS: Clear to auscultation bilaterally. No accessory muscle use. CARDIOVASCULAR: Regular rate and rhythm. No murmur. No JVD. ABDOMEN: Soft, nontender and nondistended. No palpable masses. EXTREMITIES: No edema. Nontender. SKIN: No rashes or lesions. Warm. NEUROLOGIC: Alert and oriented X3 laboratory and microbiology Laboratory Tests 05/05/25 05:06 Test 05/05/25 05:06 Range/Units Serum Glucose 136 H 74-106 mg/dL Microbiology Date/Time Source Procedure Growth Status 05/04/25 01:44 Nose MRSA Screen - Final Methicillin Resistant S.aureus Complete 05/03/25 21:58 Blood Blood Culture - Preliminary NO GROWTH AFTER 24 HOURS OF INCUBATION. Resulted Problem List/Assessment/Plan Problem List/Assessment/Plan # Acute hypoxic respiratory failure likely due to pneumonia and influenza A and B # Viral pneumonia due to influenza # possible Gram-positive/Gram-negative bacterial pneumonia - -initial chest x-ray was grossly clear with no evidence of consolidations -continue oseltamivir 75 mg b.i.d. for five days -continue I/V azithromycin 500 mg daily - continue Rocephin 1 g daily as patient has risk for developing bacterial pneumonia - continue breathing treatment # Primary hypertension # History of Coronary artery disease status post two stents placed (1st 6 years ago and last on oct 2024) - continue amlodipine 5 mg daily - monitor BP - continue clopidogrel 75 mg daily and aspirin 81 mg daily # Dyslipidemia - atorvastatin 40 mg daily # Lupus erythematosus # Sjogren's syndrome - continue steroids -monitor blood sugars due to chronic steroid use # GERD - continue Protonix # leukocytosis due to steroid use DVT prophylaxis: Patient is ambulatory no need of DVT prophylaxis GI prophylaxis: pantoprazole 40 mg daily Goals discussed with the patient at bedside for 21min, FULL CODE Plan discussed with Dr. HEDRICK Plan discussed with: Patient My Orders My Orders Orders - MARIA GRACE RESIDENT Procedure Category Date Status Time Pantoprazole Tablet PHA 05/06/25 In Process (Protonix Tablet) 06:00 Azithromycin 500mg/ PHA 05/05/25 In Process 250ml (Zithromax 50 10:00 Mupirocin 2% Oint PHA 05/05/25 In Process Mrsa Nares (Bactroban 10:00 Ceftriaxone 1gm/50ml PHA 05/06/25 In Process D5w (Rocephin) 09:00 MARIA GRACE RESIDENT May 05, 2025 17:19
[2025-05-06] VITALS (11 sets, daily range): BP systolic 100–135; BP diastolic 58–88; PULSE 58–73; RESP 14–18; TEMP 36.4; O2SAT 93–98
[2025-05-06] MEDS: PANTOPRAZOLE 40 MG TAB PO SCH (05:43)
[2025-05-06 07:46] LABS: Basophils # (auto) 0 10 ^3/uL (0-0.2); Basophils % (auto) 0.1 % (0.0-2.0); Eosinophils # (auto) 0 10 ^3/uL (0-0.8); Hematocrit 37.5 % (36.0-46.0); Hemoglobin 12.7 g/dL (12.2-16.2); Lymphocytes # (auto) 1.9 10 ^3/uL (0.4-5.4); Lymphocytes % (auto) 23.3 % (10.0-50.0); Mean Corpuscular Hemoglobin 33.4 pg (28.0-32.0); Mean Corpuscular Hgb Conc. 33.9 g/dL (32.0-36.0); Mean Corpuscular Volume 98.5 fL (80.0-100.0); Monocytes # (auto) 0.5 10 ^3/uL (0-1.3); Monocytes % (auto) 6.3 % (0.0-12.0); Neutrophils # (auto) 5.8 10 ^3/uL (1.6-8.6); Neutrophils % (auto) 70.3 % (37.0-80.0); Nucleated Red Blood Cells % 0.1 %; Platelet Count (auto) 265 10^3/uL (140-450); Red Blood Cells 3.81 10^6/uL (4.0-5.20); Red Cell Distribution Width 14.6 % (11.8-14.3); White Blood Cell 8.3 10^3/uL (4.4-10.8)
[2025-05-06 07:56] LABS: Potassium 4.4 mmol/L (3.5-5.1); Sodium 145 mmol/L (136-145)
[2025-05-06 07:57] LABS: Anion Gap 7 (5-15); Carbon Dioxide 25 mmol/L (20-31)
[2025-05-06 07:58] LABS: Calcium 9.7 mg/dL (8.7-10.4)
[2025-05-06 08:02] LABS: BUN/Creatinine Ratio 26.9 (10.0-20.0); Blood Urea Nitrogen 21 mg/dL (9-23); Glucose 105 mg/dL (74-106)
[2025-05-06 08:10] LABS: Chloride 113 mmol/L (98-107)
[2025-05-06] MEDS: cefTRIAXone 1GM/50ML D5W 50 ML IV SCH (09:00)
[2025-05-06] MEDS ORDERED: MUPI2OIN2 EX (10:55)
[2025-05-06] MEDS ORDERED: OSEL75CA5 PO (10:55)
[2025-05-06] MEDS ORDERED: DOXY1CAP57 PO (10:55)
--- NOTE | 2025-05-06 11:11 | DVHDSRES ---
Discharge Summary Date of Admission Resident Creating Document: MARIA GRACE RESIDENT May 03, 2025 at 23:43 Date of Discharge: May 06, 2025 Admitting Diagnosis Acute hypoxic respiratory failure. Labs/Diagnostic Data: Laboratory Results Test 05/06/25 07:00 05/06/25 05:37 05/04/25 06:21 05/04/25 03:00 White Blood Count 8.3 10^3/uL (4.4-10.8) Red Blood Count 3.81 10^6/uL (4.0-5.20) Hemoglobin 12.7 g/dL (12.2-16.2) Hematocrit 37.5 % (36.0-46.0) Mean Corpuscular Volume 98.5 fL (80.0-100.0) Mean Corpuscular Hemoglobin 33.4 pg (28.0-32.0) Mean Corpuscular Hemoglobin Concent 33.9 g/dL (32.0-36.0) Red Cell Distribution Width 14.6 % (11.8-14.3) Platelet Count 265 10^3/uL (140-450) Mean Platelet Volume 8.0 fL (6.9-10.8) Neutrophils (%) (Auto) 70.3 % (37.0-80.0) Lymphocytes (%) (Auto) 23.3 % (10.0-50.0) Monocytes (%) (Auto) 6.3 % (0.0-12.0) Eosinophils (%) (Auto) 0.0 % (0.0-7.0) Basophils (%) (Auto) 0.1 % (0.0-2.0) Neutrophils # (Auto) 5.8 10 ^3/uL (1.6-8.6) Lymphocytes # (Auto) 1.9 10 ^3/uL (0.4-5.4) Monocytes # (Auto) 0.5 10 ^3/uL (0-1.3) Eosinophils # (Auto) 0 10 ^3/uL (0-0.8) Basophils # (Auto) 0 10 ^3/uL (0-0.2) Nucleated Red Blood Cells 0.1 % Sodium Level 145 mmol/L (136-145) Potassium Level 4.4 mmol/L (3.5-5.1) Chloride Level 113 mmol/L (98-107) Carbon Dioxide Level 25 mmol/L (20-31) Anion Gap 7 (5-15) Blood Urea Nitrogen 21 mg/dL (9-23) Creatinine 0.78 mg/dL (0.550-1.02) Glomerular Filtration Rate Calc 82 mL/min (>90) BUN/Creatinine Ratio 26.9 (10.0-20.0) Serum Glucose 105 mg/dL (74-106) Calcium Level 9.7 mg/dL (8.7-10.4) POC Glucose 99 mg/dl (70-106) Total Bilirubin 0.7 mg/dL (0.2-1.0) Aspartate Amino Transferase (AST) 11 U/L (13-40) Alanine Aminotransferase (ALT) 18 U/L (7-40) Alkaline Phosphatase 74 U/L (46-116) Total Protein 7.3 g/dL (5.7-8.2) Albumin 4.7 g/dL (3.2-4.8) Urine Color Colorless (Yellow) Urine Clarity Clear (Clear) Urine pH 7.0 (5.0-9.0) Urine Specific Strang 1.006 (1.001-1.035) Urine Protein Negative (Negative) Urine Ketones Negative (Negative) Urine Blood Negative /uL (Negative) Urine Nitrite Negative (Negative) Urine Bilirubin Negative (Negative) Urine Urobilinogen Normal mg/dL (Negative) Urine Leukocyte Esterase Negative /uL (Negative) Urine RBC 1 /hpf (0 - 4) Urine Microscopic WBC 1 /HPF (0-5) Urine Squamous Epithelial Cells Few /hpf (<5) Urine Bacteria None seen /hpf (None Seen) Urine Glucose 1+ mg/dL (Normal) Urine Opiates Screen Neg (NEGATIVE) Urine Fentanyl Screen Neg (NEGATIVE) Urine Barbiturates Screen Neg (NEGATIVE) Urine Phencyclidine Screen Neg (NEGATIVE) Urine Amphetamines Screen Neg (NEGATIVE) Urine Benzodiazepines Screen Neg (NEGATIVE) Urine Cocaine Screen Neg (NEGATIVE) Urine Cannabinoids Screen Neg (NEGATIVE) Test 05/03/25 23:37 05/03/25 22:46 05/03/25 21:50 05/03/25 21:37 Lactic Acid Level 1.9 mmol/L (0.4-2.0) Troponin I High Sensitivity 4 ng/L (</=34) B-Type Natriuretic Peptide 21.67 pg/mL (0-100) Triglycerides Level 349 mg/dL (< 150) Cholesterol Level 164 mg/dL (< 200) LDL Cholesterol 92 mg/dL (< 100) HDL Cholesterol 33 mg/dL (40-59) Influenza Type A Antigen Positive (Negative) Influenza Type B Antigen Positive (Negative) SARS-CoV-2 Antigen (Rapid) Negative (NEGATIVE) Other Laboratory Tests 05/06/25 07:00 Brief Hx & Hospital Course: HPI: 70-year-old female with past medical history of hypertension coronary artery disease status post PTCA with two stents placement one six years ago and last one on October of 2024 (currently compliant on aspirin and clopidogrel), dyslipidemia, asthma, SLE, hyperglycemia induced by chronic steroid use. The patient presented to the ED with chief complaint of shortness of breaths associated with cough and burning sensation in the chest. The patient states that all symptoms started five days ago when she started feeling shortness of breaths with initially dry cough that then progressed to a productive cough with sputum production yellowish in color. The patient states that symptoms worsened recently prompting her visit to the ED. the patient denied fever/chills, chest pain, abdominal tenderness, headache or any other associated symptoms. Upon admission, initial CBC was grossly unremarkable and BNP showed hypokalemia of 3.3. Lactic acid was slightly elevated at 2.1 and patient tested positive for both influenza A and B. patient was started on oseltamivir 75 mg b.i.d., azithromycin po, albuterol and ipratropium med nebs and the patient was admitted for further assessment and management. Past medical history: Primary hypertension, coronary artery disease status post two stent placement, dyslipidemia, asthma, SLE, Sjogren's syndrome. Home medications: Clopidogrel 75 mg daily, aspirin 81 mg daily, methotrexate two 5 mg tablet x6 weekly, amlodipine 5 mg daily, prednisone 5 mg b.i.d., clotrimazole 10 mg t.i.d., atorvastatin 40 mg daily, fenofibrate 48 mg daily, metformin 500 mg b.i.d. Social history: Denies alcohol, drugs or smoking. Summary: Patient was diagnosed with acute hypoxic respiratory failure, possible pneumonia, initial chest x-ray was grossly clear with no evidence of consolidations, I/V oseltamivir was started, also patient was start with IV azithromycin and IV Rocephin, patient was giving breathing treatment, patient has autoimmune disease like SLE and Sjogren syndrome, patient was on steroid. Patient was also positive for MRSA Nare, Today patient is feeling better saturating 96% on room air, of oxygen for last 48 hours, no complaint of shortness of pain fever chills, cough, chest pain. Patient is hemodynamically stable and going to be discharged home with doxycycline 100 mg PO b.i.d. for 7 days, oseltamivir 75 mg b.i.d. p.o. X 3 days, mupirocin ointment 2% apply both nostrils b.i.d. for 5 days. Advised patient to follow up with PCP in 1-2 weeks. Condition at Discharge: Stable Final Diagnosis/Problems List # Acute hypoxic respiratory failure likely due to pneumonia and influenza A and B # Viral pneumonia due to influenza # possible Gram-positive/Gram-negative bacterial pneumonia # Primary hypertension # History of Coronary artery disease status post two stents placed (1st 6 years ago and last on oct 2024) # Primary hypertension # History of Coronary artery disease status post two stents placed ( 6 years ago and last on oct 2024) # Dyslipidemia # Lupus erythematosus # Sjogren's syndrome # GERD # leukocytosis due to steroid use Discharge Disposition: Home SNF Discharge Will this Physician continue t: No Discharge Instruct/Medications Diet: Consistent carbohydrate, Cardiac 2g Na,low cholest Activity: No Restrictions, As Tolerated Follow Up/Referral: See Below Medications: See Below Care Plan: - Doxycycline 100 mg p.o. BID X 7 days - Oseltamivir 75 mg p.o. b.i.d. X 3 days - Mupirocin 2% ointment - apply each nostril 2 times a day X 7 days - Continue all home medications - Follow up with PCP in 1-2 weeks Discharge Statement: "Patient was advised to return to the ER or call 911 if any headaches, dizziness, shortness of breath, chest pain, abdominal pain, bleeding, fevers, or worsening of medical condition. Patient was counseled about treatment plan, medications, possible side effects, patientverbalized understanding. All questions were answered to the best of my ability. This discharge took greater then 30 minutes in planning, reviewing documentation, counseling the patient, and discussing with other team members." ASSESSMENT ASSESSMENT Assessment MARIA GRACE RESIDENT May 06, 2025 11:11
== END 2025-05-06 19:27 | disposition home or self-care (01) | DRG 177 ==
LOC: ER 20:48 → OVERFLOW 23:43 → WEST WING 05-04 00:57
PROVIDERS: ADMIT Student in an Organized Health Care Education/Training Program; ATTEND Student in an Organized Health Care Education/Training Program
DX: J15.69 Pneumonia due to other Gram-negative bacteria (principal); J96.01 Acute respiratory failure with hypoxia; J45.901 Unspecified asthma with (acute) exacerbation; J10.08 Influenza due to other identified influenza virus with other specified pneumonia; J15.9 Unspecified bacterial pneumonia; E78.5 Hyperlipidemia, unspecified; I10 Essential (primary) hypertension; J12.9 Viral pneumonia, unspecified; Z20.822 Contact with and (suspected) exposure to COVID-19; M32.9 Systemic lupus erythematosus, unspecified; K21.9 Gastro-esophageal reflux disease without esophagitis; E11.9 Type 2 diabetes mellitus without complications; I25.10 Atherosclerotic heart disease of native coronary artery without angina pectoris; M35.00 Sjogren syndrome, unspecified; T38.0X5A Adverse effect of glucocorticoids and synthetic analogues, initial encounter; Z95.5 Presence of coronary angioplasty implant and graft; Z90.710 Acquired absence of both cervix and uterus; Z90.49 Acquired absence of other specified parts of digestive tract; Y92.89 Other specified places as the place of occurrence of the external cause; J10.1 Influenza due to other identified influenza virus with other respiratory manifestations
CPT/HCPCS: 36415; 71045; 80048; 80053; 80061; 80307; 81001; 82962; 83605; 83880; 84484; 85025; 87040; 87081; 87426; 87804; 94640; G0378; G9035; J1815

== ENCOUNTER 2025-05-23 06:36 | Outpatient (CLI) | payer MEDICARE, MEDICAID, OTHER ==
[~2025-05-23 06:36] MED LIST changes: -CLOP75TA28 PO; -DOCU-94 PO; +DOXY1CAP57 PO; -HYDR25TA5 GT; -LINA1CAP2 PO; -MONT10TA23 PO; +MUPI2OIN2 EX; +OSEL75CA5 PO; +PRE5T PO; -PRED10TA PO; -RANO500T3 PO; -SUCR1TAB PO
[2025-05-23 08:00] LABS: Erythrocyte Sedimentation Rate 15 mm/hr (0-20)
[2025-05-23 08:12] LABS: Alanine Aminotransferase 16 U/L (7-40); Alkaline Phosphatase 85 U/L (46-116); Anion Gap 11 (5-15); Aspartate Aminotransferase 18 U/L (<34); BUN/Creatinine Ratio 16.3 (10.0-20.0); Blood Urea Nitrogen 16 mg/dL (9-23); CRP High Sensitivity 0.05 mg/dL (<1.0); Carbon Dioxide 25 mmol/L (20-31); Sodium 147 mmol/L (136-145); Total Protein 7.5 g/dL (5.7-8.2)
[2025-05-23 08:13] LABS: Albumin 4.9 g/dL (3.2-4.8); Bilirubin, Total 0.6 mg/dL (0.2-1.0); Calcium 10.7 mg/dL (8.7-10.4); Chloride 111 mmol/L (98-107); Glucose 146 mg/dL (74-106); Potassium 5.2 mmol/L (3.5-5.1)
== END 2025-05-23 17:00 | disposition home or self-care (01) ==
LOC: LAB 06:36
PROVIDERS: ATTEND Internal Medicine
DX: M25.551 Pain in right hip (principal); M19.90 Unspecified osteoarthritis, unspecified site
CPT/HCPCS: 36415; 80053; 85652; 86141

== ENCOUNTER 2025-07-01 10:55 | Inpatient (IN) | payer MEDICARE, OTHER, MEDICAID ==
[2025-06-29 10:02] LABS: Hematocrit 36.3 % (36.0-46.0); Hemoglobin 12.2 g/dL (12.2-16.2); Mean Corpuscular Hemoglobin 32.5 pg (28.0-32.0); Mean Corpuscular Volume 97.0 fL (80.0-100.0); Nucleated Red Blood Cells % 0.1 %
[2025-06-29 10:13] LABS: Alanine Aminotransferase 23 U/L (7-40); Albumin 4.7 g/dL (3.2-4.8); Alkaline Phosphatase 77 U/L (46-116); Anion Gap 8 (5-15); BUN/Creatinine Ratio 28.1 (10.0-20.0); Bilirubin, Total 0.6 mg/dL (0.2-1.0); Calcium 10.2 mg/dL (8.7-10.4); Carbon Dioxide 26 mmol/L (20-31); Glucose 89 mg/dL (74-106); Total Protein 7.0 g/dL (5.7-8.2)
[2025-06-29 10:15] LABS: Chloride 111 mmol/L (98-107); Potassium 5.2 mmol/L (3.5-5.1); Sodium 145 mmol/L (136-145)
[2025-06-29 10:16] LABS: Blood Urea Nitrogen 27 mg/dL (9-23)
[2025-06-29 11:44] LABS: INR 1.0 (0.9-1.15); Partial Thromboplastin Time 24.0 SEC (24.5-34.5); Prothrombin Time 10.6 sec (9.3-11.8)
[2025-07-01] VITALS (10 sets, daily range): BP systolic 112–138; BP diastolic 56–70; PULSE 59–71; RESP 11–18; TEMP 96.1–98.4; O2SAT 91–98
[~2025-07-01] VITALS: Ht 152.4 cm; Wt 59.0 kg
[2025-07-01] MEDS: IODIXANOL 320MG/ML 100ML BTL IV ONE ×3 (12:06→14:13)
[2025-07-01] MEDS: HEPARIN SODIUM (PORCINE) 5000 UNITS/ML 1ML VIAL ONE (12:24)
[2025-07-01] MEDS: fentaNYL CITRATE 100 MCG/2 ML VL ONE (12:24)
[2025-07-01] MEDS: VERAPAMIL 2.5MG/ML INJ 2ML VIAL IV ONE (12:24)
[2025-07-01] MEDS: ANGIOMAX 250 MG VIAL IV ONE ×2 (12:24→14:22)
[2025-07-01] MEDS: MIDAZOLAM HCL 2MG/2ML 2ml VIAL (1mg/ml) ONE (12:25)
[2025-07-01] MEDS: LIDOCAINE 2%HCL (LOCAL ANESTH.) INJ 20ML MDV ONE (12:25)
[2025-07-01] MEDS: SODIUM CHL 0.9% 50 ML ONE ×2 (12:25→14:22)
[2025-07-01] MEDS: ATROPINE SULF 1 MG/10ml SYR ONE (13:50)
[2025-07-01] MEDS: CLOPIDOGREL BISULFATE 75 MG TAB ONE (14:59)
--- NOTE | 2025-07-01 15:04 | DVHOP2 ---
Operative Report - 2 Report Details Date: 07/01/25 Preop Diagnosis: CAD Postop Diagnosis: CAD Surgeon: Alma Moulton MD Anesthesiologist: Conscious sedation Anesthesia: Mac, Local Implant: [employer] ralph drug-eluting stents Consent: The patient was informed of the risks and benefits of the procedure. These in clude but are not limited to complications of anesthesia, postoperative infection, incomplete relief of symptoms, recurrence of symptoms, damage to blood vessels, nerves and tendons, deep venous thrombosis, pulmonary embolism and possible need for repeat surgery in the future. Complications: No complications Findings: Severe CAD Indications for Surgery: Chest pain Name of Procedure Performed Left heart catheterization. Bilateral cine coronary angiography. Left ventriculography. Intravascular ultrasound evaluation of the left main LAD and circumflex coronary artery. Shockwave therapy of the circumflex LAD and left main. PTCA and stenting with DK crush technique of the circumflex LAD and left main. Procedure Details Procedure Details: Prior local anesthesia with 2% lidocaine to the right wrist and full informed consent obtained the patient was prepped and draped in usual fashion followed by placement of a six [place] sheath into the right radial artery however given the small size of the vessel we were unable to pass the catheter beyond the elbow. We then diverted our attention to the groin and placed a six [place] sheath into the right femoral artery under fluoroscopic and ultrasound guidance. We then placed a Carlos Alberto catheters to cannulate both right and left coronary ostia and ventriculography. We performed with PTCA and stenting with a three 0 EBU guide. Details below. Hemodynamics: Aortic blood pressure was 1 10/70. End-diastolic pressure was 18. There was no gradient across the aortic valve on pullback Coronary anatomy: The RCA is a large vessel it is normal in its proximal mid and distal segments. The PDA and posterolateral branches are normal. Left main is a large vessel with haziness at its distal segment at the junction of the circumflex coronary artery. The ostial LAD has a 95% stenosis in his eccentric calcified. The LAD itself has been stented in its diagonal and proximal segment. There is proximal stent restenosis without in stent restenosis of the left anterior descending artery distal to the ostium. No in stent restenosis of the diagonal branch. The circumflex has an ostial 80% stenosis extending into its proximal portion. It is calcified as well. Ventriculography in the JAIN projection shows an EF of about 50% with mild global hypokinesis Angioplasty was performed with a 3.0 EBU guide. We placed Specter wires into the LAD and circumflex vessels. After intravascular ultrasound evaluation revealing a cross-sectional area of the left main less than 5.2 cm2 and of the ostium proximal segment of the LAD had less than 2.2 cm2 we opted to perform angioplasty and stenting. The circumflex and LAD were angioplasty with a 3-0 and a two five noncompliant balloon respectively. This was done after we performed shockwave therapy with a 2.5 and 3-0 shockwave balloon. Five treatments in each vessel occurred. We then placed a 2.5 x 15 and a 3.0 by 15 mm ralph drug-eluting stents with EKG crush technique and kissing balloons of the LAD and circumflex and left main. Intravascular ultrasound postprocedure revealed adequate apposition of all stents. There was excellent antegrade flow without thrombus formation and/or dissection. Impression: Successful PTCA and stenting of the left main LAD and circumflex with a DK crush kissing balloon technique. Mildly diminished EF. Mildly elevated left ventricular end-diastolic pressure at rest. Recommendations: Dual antiplatelet therapy to continue. Patient will be hospitalized for overnight and discharged in a.m. if stable. Condition Good Disposition Still a Patient Date of Service: Jul 01, 2025 Billing Provider: ALMA MOULTON Sr., MD Cardiology Common Codes: 39714-[id number] INP/OBS CARE (High) Cardiology Procedure Codes: 52304 -PTCA W/STENT PLACEMENT, 60991-RXVV ADD CORONARY BRANCH, 99899-VUEW HEART CATH W/INTRA INJ (DK crush technique with PTCA and stenting of the left anterior descending circumflex and left main. Intravascular ultrasound evaluation of left main circumflex and LAD. Shockwave therapy of the circumflex left main LAD.) ALMA MOULTON Sr., MD Jul 01, 2025 15:04
[2025-07-01] MEDS ORDERED: NITROGLYCERIN 0.4 MG SL TAB SL PRN (15:15)
[2025-07-01] MEDS ORDERED: MORPHINE SULFATE INJ 2 MG/ml SYRG IV PRN (15:15)
[2025-07-01] MEDS: ATORVASTATIN 20 MG TAB PO SCH (21:12)
[2025-07-02] VITALS (7 sets, daily range): BP systolic 95–114; BP diastolic 58–79; PULSE 65–78; RESP 16–19; TEMP 36.9; O2SAT 95–97
[2025-07-02] MEDS: CLOPIDOGREL BISULFATE 75 MG TAB PO SCH (09:04)
[2025-07-02] MEDS: METOPROLOL TARTRATE 25 MG TAB PO ONE (12:00)
[2025-07-02 14:43] LABS: Chloride 105 mmol/L (98-107); Potassium 4.1 mmol/L (3.5-5.1); Sodium 138 mmol/L (136-145)
[2025-07-02 14:44] LABS: Anion Gap 6 (5-15); Calcium 9.2 mg/dL (8.7-10.4); Carbon Dioxide 27 mmol/L (20-31)
[2025-07-02 14:49] LABS: BUN/Creatinine Ratio 22.2 (10.0-20.0); Blood Urea Nitrogen 20 mg/dL (9-23)
[2025-07-02 14:50] LABS: Glucose 140 mg/dL (74-106)
[2025-07-02] MEDS ORDERED: METOPROLOL TARTRATE 25 MG TAB PO SCH (22:00)
== END 2025-07-02 17:00 | disposition home or self-care (01) | DRG 324 ==
LOC: CATH 10:55 → OVERFLOW 15:08 → TELE-WESTW 17:52
PROVIDERS: ADMIT Internal Medicine; ATTEND Internal Medicine
PROC: 027135Z Dilation of Coronary Artery, Two Arteries with Two Drug-eluting Intraluminal Devices, Percutaneous Approach (ICD-10-PCS; principal; 2025-07-01)
PROC: 02F13ZZ Fragmentation in Coronary Artery, Two Arteries, Percutaneous Approach (ICD-10-PCS; 2025-07-01)
PROC: B241ZZ3 Ultrasonography of Multiple Coronary Arteries, Intravascular (ICD-10-PCS; 2025-07-01)
PROC: 4A023N7 Measurement of Cardiac Sampling and Pressure, Left Heart, Percutaneous Approach (ICD-10-PCS; 2025-07-01)
PROC: B211YZZ Fluoroscopy of Multiple Coronary Arteries using Other Contrast (ICD-10-PCS; 2025-07-01)
PROC: B215YZZ Fluoroscopy of Left Heart using Other Contrast (ICD-10-PCS; 2025-07-01)
DX: I25.10 Atherosclerotic heart disease of native coronary artery without angina pectoris (principal); Z79.899 Other long term (current) drug therapy; Z79.82 Long term (current) use of aspirin; Z87.01 Personal history of pneumonia (recurrent)
CPT/HCPCS: 36415; 80048; 80053; 85025; 85610; 85730; 92928; 92978; 92979; 93458; 99152; C1874; G0378; J2250; Q9967

== ENCOUNTER → 2025-07-01 | Outpatient (CLI) | payer MEDICARE, MEDICAID ==
[~2025-07-01] MED LIST changes: +ALBU108A5 IN; -CEVI30CA8 OR; +DICY20TA PO; -DICY20TA2 PO; -DOXY1CAP57 PO; -FOLI-119 PO; -GABA-1250 PO; -GENT0.3S10 OP; +HYDR25TA5 PO; +MONT10TA23 PO; -MUPI2OIN2 EX; -OME20T PO; -OSEL75CA5 PO
== END | disposition home or self-care (01) ==
LOC: LAB 15:52
PROVIDERS: ATTEND Internal Medicine
DX: N18.2 Chronic kidney disease, stage 2 (mild) (principal); E78.5 Hyperlipidemia, unspecified; R42 Dizziness and giddiness
CPT/HCPCS: 82270

== ENCOUNTER 2025-08-08 07:20 | Outpatient (CLI) | payer MEDICARE, OTHER, MEDICAID ==
[~2025-08-08 07:20] MED LIST changes: -AMLO1TAB22 PO; -DICY20TA PO; -FLUT1SPR5; -HYDR25TA5 PO; -METF-370 PO; -NITR0.4S29 SL; -ONDA-155 PO
[2025-08-08 08:38] LABS: Anion Gap 8 (5-15); Carbon Dioxide 28 mmol/L (20-31); Chloride 104 mmol/L (98-107); Potassium 3.8 mmol/L (3.5-5.1); Sodium 140 mmol/L (136-145)
[2025-08-08 08:39] LABS: Calcium 9.6 mg/dL (8.7-10.4)
[2025-08-08 08:44] LABS: BUN/Creatinine Ratio 12.2 (10.0-20.0); Blood Urea Nitrogen 11 mg/dL (9-23); Cholesterol 111 mg/dL (< 200)
[2025-08-08 08:51] LABS: Glucose 127 mg/dL (74-106); HDL Cholesterol 24 mg/dL (40-59); Triglycerides 261 mg/dL (< 150)
== END 2025-08-08 17:00 | disposition home or self-care (01) ==
LOC: LAB 07:20
PROVIDERS: ATTEND Internal Medicine
DX: E11.21 Type 2 diabetes mellitus with diabetic nephropathy (principal); E87.5 Hyperkalemia
CPT/HCPCS: 36415; 80048; 80061

== ENCOUNTER 2025-08-26 10:14 | Outpatient (CLI) | payer MEDICARE, MEDICAID ==
[2025-08-26 12:20] LABS: Cholesterol 171 mg/dL (< 200); Creatine Kinase IFCC 73 U/L (34-145); HDL Cholesterol 29 mg/dL (40-59); Triglycerides 274 mg/dL (< 150)
== END 2025-08-26 17:00 | disposition home or self-care (01) ==
LOC: LAB 10:14
PROVIDERS: ATTEND Internal Medicine
DX: E78.5 Hyperlipidemia, unspecified (principal); M32.9 Systemic lupus erythematosus, unspecified; M06.9 Rheumatoid arthritis, unspecified
CPT/HCPCS: 36415; 80061; 82550; 85652; 86141

== ENCOUNTER → 2025-09-16 | Outpatient (CLI) | payer MEDICARE, MEDICAID, OTHER ==
[2025-09-16 11:11] LABS: Creatine Kinase IFCC 109.0 U/L (34-145)
== END | disposition home or self-care (01) ==
LOC: LAB 09:51
PROVIDERS: ATTEND Internal Medicine
DX: E78.5 Hyperlipidemia, unspecified (principal); M06.9 Rheumatoid arthritis, unspecified; M79.7 Fibromyalgia
CPT/HCPCS: 36415; 82550; 85652; 86141

== ENCOUNTER 2025-09-28 11:06 | Outpatient (CLI) | payer MEDICARE, MEDICAID, OTHER | END 2025-09-28 17:00 | disposition home or self-care (01) | LOC: LAB 11:06 | PROVIDERS: ATTEND Internal Medicine Gastroenterology | DX: K29.00 Acute gastritis without bleeding (principal); R10.13 Epigastric pain; B96.81 Helicobacter pylori [H. pylori] as the cause of diseases classified elsewhere | CPT/HCPCS: 83013 ==